=== PATIENT | female | born 1960 | race Caucasian/White ===

== ENCOUNTER → 2019-05-25 13:16 | Outpatient (CLI) | payer OTHER, SELFPAY ==
--- NOTE | 2019-05-25 13:23 | DIET.PN ---
Dietary Progress Note Assessment: Valorie is here to establish care with an RD s/p patricia-en-y gastric bypass from 2011. Pt initially lost 100# but has regained 70#. Attributes this to moving, family stress, and not having a support system. Pts daughter had gastric sleeve done 1y ago, pt's has DM and leukemia. Pt feels having the accountability of regular RD check ins will help her stay accountable. HT: 5'6 04/29 WT:290# UBW: 354 down to 220 gained back 70# BMI: 46.8 9 (morbid obesity) Pt is taking bariatric supps as directed (MVI, calcium, biotin, B12, Iron) and has few side effects from procedure except: if eats too much will spit up some volume about every couple weeks, no specific foods Usual Intake: B: 1 packet flavor oatmeal-c nuts sometimes or bulgarian muffin/toast c butter/bagel c cream cheese or scrambled eggs c toast 9am: cottage cheese c fruit (peaches/cantaloupe) Lunch(noon): popcorn, granola bar D530: chicken thigh, a couple little red potatoes, veggie or steak ([place] strip) c rice or mac n cheese or pasta c onion and mushroom Bedtime snack: packet of fruit gummies Pt's self-proclaimed food downfalls include sweets: ice cream- but no sugar added as has DM- and sometime just eats skinnypop popcorn for lunch. Physical Activity: Currently no intentional PA, before moved (5y ago) was doing 3x/w at [facility] 2hrs each occasion, 30 min twice per week on treadmill Nutrition Diagnosis: 1. Impaired nutrient utilization and altered GI function r/t hx of patricia-en-y gastric bypass aeb pt s/p procedure 8y ago, is reliant on daily nutrition supplements, has a limited stomach pouch which needs optimized nutrient intake to avoid severe malnutrition. 2. Undesirable food choices r/t lifestyle pattern which promotes weight maintenance post-bariatric aeb pt has regained 70% of weight, pt diet recall high in carbohydrates and inadequate in protein, pt reports no regular physical activity. Interventions: 1. Discussed physical activity as an important target to address several barriers to self care: socialization, weight maintenance, improved mood, self-care. Pt has scholarship application for the [employer] needing to be filled out. Pt had success with PA when a [facility] of [facility] [employer] [facility] [place]. 2. Reiterated post-bariatric diet reccs of 1. Protein 2. Vegetable 3. Starch/Fruit. Because the pouch is small, foods should be consumed in this order of importance to ensure adequate nutrition. 3. Introduced concept of Mindful Eating. Educated on the hunger scale, to eat at a 3 and stop at a 7. If eating when a 5, what are you asking food to do for you? Try to identify situations or emotions when you turn to food to ground yourself or as a friend. Be gentle and notice these occasions, inviting self to either participate in them or find a suitable alternative. Start to understand the difference between stomach hunger vs eye, ear, nose, heart hungers. Goals: 1. Pt will sign up for [employer] scholarship and sample a variety of classes to see which she enjoys and report back to this RD during f/u. 2. Pt will increase protein during breakfast or lunch by adding in Fage Trublend anguillan yogurt, which has no added sugars or artificial sweeteners. 3. Pt will start practicing Mindful Eating by getting familiar with her own Hunger Scale and gently identify emotions/situations when she eats as a coping mechanism. Monitoring/Evaluations: f/u in 1 mo
== END ==
PROVIDERS: PCP Internal Medicine; Visit Provider Psychiatry & Neurology Psychiatry
DX: E66.01 Morbid (severe) obesity due to excess calories (principal); Z68.42 Body mass index [BMI] 45.0-49.9, adult; Z09 Encounter for follow-up examination after completed treatment for conditions other than malignant neoplasm; Z98.84 Bariatric surgery status
CPT/HCPCS: 97802

== ENCOUNTER → 2019-06-22 13:29 | Outpatient (CLI) | payer OTHER, SELFPAY ==
--- NOTE | 2019-06-22 13:33 | DIET.PN ---
Dietary Progress Note Assessment: Valorie is here for f/u appointment for weight loss. Setback in [place] at [facility] with who is starting new medication for leukemia. Pt expresses difficulty caring for self when has so much going on. She has cancelled several appointments for herself and did not get a chance to go sign up for the [facility] per our goals last visit. Pt having difficulty meal planning, tends towards protein bars, easy carbs, or frozen dishes, though is retired and is able to prep meals. HT: 66 WT: 287# (-3#) Nutrition Diagnosis: 1. Impaired nutrient utilization and altered GI function r/t hx of patricia-en-y gastric bypass aeb pt s/p procedure 8y ago, is reliant on daily nutrition supplements, has a limited stomach pouch which needs optimized nutrient intake to avoid severe malnutrition. 2. Undesirable food choices r/t lifestyle pattern which promotes weight maintenance post-bariatric aeb pt has regained 70% of weight, pt diet recall high in carbohydrates and inadequate in protein, pt reports no regular physical activity. Interventions: Pt will continue goal of signing up for [facility] before our next visit. Discussed meal prepping, pt will try planning 3 dinners per week, one new recipe and two familiar healthy recipes, even if she is the only one who eats it. Pt will start diet diary to watch her PRO, CHO, and kcals and will share at f/u Monitoring/Evaluations: f/u 4w
== END ==
PROVIDERS: PCP Internal Medicine; Referring Provider Psychiatry & Neurology Psychiatry; Visit Provider Psychiatry & Neurology Psychiatry
DX: E66.9 Obesity, unspecified (principal); Z68.42 Body mass index [BMI] 45.0-49.9, adult; Z71.3 Dietary counseling and surveillance
CPT/HCPCS: 97802

== ENCOUNTER → 2019-10-15 10:55 | Outpatient (CLI) | payer OTHER, SELFPAY ==
--- NOTE | 2019-10-15 15:25 | DIET.PN ---
Dietary Progress Note Assessment: Valorie is here for f/u appointment for weight loss. Pt feeling emotional about isolation during pandemic. Has been snacking and not doing physical activity. Pt originally was excited to start a bariatric support group but feels she needs to get back on track before this can occur. Pt brought in several food containers to show she has been more discerning on food ingredients, choosing less processed options and those with monkfruit or stevia. HT: 66 WT: 287# (-3#) Nutrition Diagnosis: 1. Impaired nutrient utilization and altered GI function r/t hx of patricia-en-y gastric bypass aeb pt s/p procedure 8y ago, is reliant on daily nutrition supplements, has a limited stomach pouch which needs optimized nutrient intake to avoid severe malnutrition. 2. Undesirable food choices r/t lifestyle pattern which promotes weight maintenance post-bariatric aeb pt has regained 70% of weight, pt diet recall high in carbohydrates and inadequate in protein, pt reports no regular physical activity. Interventions: 1. Pt will discard all artificial sweeteners in home replacing with either monkfruit, stevia, and/or sugar alcohols. 2. Pt will start walking around the park near her home to increase physical activity. 3. Pt will prioritize self-care including good food choices, attending care appointments, and moving her body. 4. Pt will research if her bariatric center has an online support group during the pandemic. Monitoring/Evaluations: f/u 2w
== END ==
PROVIDERS: PCP Internal Medicine; Referring Provider Psychiatry & Neurology Psychiatry; Visit Provider Psychiatry & Neurology Psychiatry
DX: Z98.84 Bariatric surgery status (principal); Z71.3 Dietary counseling and surveillance; E66.9 Obesity, unspecified; Z68.42 Body mass index [BMI] 45.0-49.9, adult
CPT/HCPCS: 97802

== ENCOUNTER → 2019-10-29 11:21 | Outpatient (CLI) | payer OTHER, SELFPAY ==
--- NOTE | 2019-10-29 12:22 | DIET.PN ---
Dietary Progress Note RD f/u c Valorie for obesity s/p gastric bypass surgery Pt in better spirits this visit than last. Pt has been working on removing excessive food additives and artificial sweeteners from diet. Pt is bringing in food labels from items she has found containing stevia and monkfruit. 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 Pt has difficulty focusing on healthy eating and physical activity when in pain and focused on caretaking others. Pt working c counselor to address these things and it is apparent to me that her efforts at self care have increased over past two weeks. Pt is up 3#, however just starting to get back on track after the initiation of the pandemic. Pt takes 40mg lasix daily and is experiencing LLE, she shows me the creases in her ankles from socks. Recc pt check in c PCP for assessment of diuretic adjustment. We discussed dietary strategies to manage LLE including reducing sodium in diet and ensuring adequate protein may as she is s/p RYGB. Pt admits to not always getting her protein in. Gave pt sample of ONS Ensure Max. Pt brought in diet diary. Lunches, dinners, and snacks are all acceptable but noticed breakfast meals are excessive in carbohydrates (~80g). Discussed strategies to keep breakfast at 45g CHO by substituting some high carb items for high protein items. Usual Breakfast: 1 hb egg, south african muffin c butter, 2 sl deli turkey, 1 packet oatmeal c apples and almonds, 1/2 grapefruit Pt having difficulty finding provider who does lymphatic drainage and myofacial release work, recc PT Jena Schulz who is certified in these modalities. Px and sx reduction is crucial to this pt being able to meal prep healthy options and do physical activity to manage obesity. f/u in 2 w to assess barriers and continue weight loss.
== END ==
PROVIDERS: PCP Internal Medicine; Referring Provider Psychiatry & Neurology Psychiatry; Visit Provider Psychiatry & Neurology Psychiatry
DX: E66.9 Obesity, unspecified (principal); Z98.84 Bariatric surgery status; Z71.3 Dietary counseling and surveillance
CPT/HCPCS: 97802

== ENCOUNTER → 2019-11-12 10:52 | Outpatient (CLI) | payer OTHER, SELFPAY ==
--- NOTE | 2019-11-12 12:25 | DIET.PN ---
Dietary Progress Note 2w RD f/u for post RYGB weight gain. Pt was 355# before surgery, dropped to 220# 1y later but is again 300#. Pt is making great improvements in food choices and portion sizes but still facing considerable barriers for physical activity so while she has not gained any more weight with our visits, she also has not significantly lost, either. Pt is keeping food record and has modified her breakfasts to be fewer carbs, sticking to a high protein, 30g CHO breakfast since last visit. Pt continues to bring in food labels of new products she finds and enjoys. Pt has been packing car with snacks (protein bars, apples, carrots, celery, water) so she does not get tempted to do drive through when attending appointments or out shopping. Pt continuing to experience LLE despite 40mg Lasix daily. Discussed her having telehealth appt c PCP for assessment. In meantime, recommended pt start to log her daily sodium intake to stick to 2-3g max per day but not dropping below 1500mg. This will be good information for me to know as well as her PCP when she has the appt. Discussed barriers to physical activity: depression, LLE, caretaking , not in the habit. Used wagon wheel in dirt path analogy that it is difficult when you are on a well worn track to cut a new path, but once you get the template started, it becomes easier. Discussed benefits of physical activity including: continued weight loss, mood lifting, self-care, venous return for LLE, better energy. Would be beneficial for pt to continue processing barriers to physical activity c her therapist as well for added support. f/u in 2w to assess progress and barriers.
== END ==
PROVIDERS: PCP Internal Medicine; Referring Provider Psychiatry & Neurology Psychiatry; Visit Provider Psychiatry & Neurology Psychiatry
DX: Z98.84 Bariatric surgery status (principal); Z71.3 Dietary counseling and surveillance
CPT/HCPCS: 97802

== ENCOUNTER → 2019-11-26 12:01 | Outpatient (CLI) | payer OTHER, SELFPAY ==
--- NOTE | 2019-11-26 12:17 | DIET.PN ---
Dietary Progress Note Assessment: pt has lost weight this week (-3#), edema has resolved though pt does not understand why. Pt did not log sodium intake since last visit, will try again this week. Pt continues to consume ultraprocessed foods, we discussed label reading of these foods to distinguish between kitchen ingredients and laboratory ingredients, to choose items with kitchen ingredients. Pt has been mixing riced cauliflower in with rice at dinner and adds beets, sweet potatoes, to roasted potatoes and is amazed her does not notice or complain. Pt continues to have multiple barriers for physical activity: migraines, tight muscles, depression. Discussed c pt role of physical activity in improving these sx once a regular practice. Pt mentioned having hot tub and wanting to do water exercises in there. Pt decided to turn the heat down so she can 1. have jetted massage 2. do exercises 3. stress relief 4. have nearby. Pt continues to express isolation r/t global pandemic.
== END ==
PROVIDERS: PCP Internal Medicine; Referring Provider Psychiatry & Neurology Psychiatry; Visit Provider Psychiatry & Neurology Psychiatry
DX: Z71.3 Dietary counseling and surveillance (principal); Z98.84 Bariatric surgery status; F33.2 Major depressive disorder, recurrent severe without psychotic features; F41.9 Anxiety disorder, unspecified; Z68.42 Body mass index [BMI] 45.0-49.9, adult
CPT/HCPCS: 97802; 99214

== ENCOUNTER → 2020-02-10 12:04 | Outpatient (CLI) | payer OTHER, SELFPAY ==
--- NOTE | 2020-02-10 12:08 | DIET.PN ---
Dietary Progress Note 50y F f/u for weight gain and morbid obesity s/p gastric bypass. Pt is in a state of depression with little motivation to do exercise and finds herself emotional eating. Pt recently started physical therapy here at and is actively working with her care team. Pt feel isolation and is dreading the holidays as she will not be with her children due to Covid pandemic as her has leukemia so they are worried about transmission risk. Pt saw her clothes from after the bypass surgery, size 14, but is back up to size 24. Pt is making mostly healthy food choices but is overeating and grazing throughout the day. Discussed motivation and ways to get the motivation ball rolling for increased physical activity. Pt tries to involve her in physical activity attempts, but she reports he is depressed too, declines her offer, then she does not work out. Suggested pt find new movie or tv show which she only gets to watch when she is walking on the treadmill or pair with another motivating factor. Discussed physical activity's role in mood, weight, motivation. Discussed pts previous luck working with bariatric support group. There isn't anything in the area but there are some good Facebook groups. Pt will look for a good fit. F/U in 2w to assess barriers and progress.
== END ==
PROVIDERS: Family Provider Internal Medicine; PCP Internal Medicine; Referring Provider Psychiatry & Neurology Psychiatry; Visit Provider Psychiatry & Neurology Psychiatry
DX: E66.01 Morbid (severe) obesity due to excess calories (principal); Z98.84 Bariatric surgery status; Z71.3 Dietary counseling and surveillance
CPT/HCPCS: 97803

== ENCOUNTER → 2020-02-24 13:18 | Outpatient (CLI) | payer OTHER, SELFPAY ==
--- NOTE | 2020-02-24 13:19 | DIET.PN ---
Dietary Progress Note Assessment: Pt was weezing last friday night and coughing until vomited, missed PT appts now can't get back in until March. Has been snacking at night for a couple years, goes in room, puts in dvd and lays in bed snacking Pt noticed she has been eating dinner c later than normal, later than 7pm. WT: 306# (same as 2w ago) weighed in office today Interventions: 1. Discussed making hot tea in evening in leiu of snacks to assist c weight loss goals 2. Encouraged pt to start dinner earlier to try to eat by 6pm. Monitoring/Evaluations: f/u in 2w to assess progress and problem solve barriers
== END ==
PROVIDERS: Family Provider Internal Medicine; PCP Internal Medicine; Referring Provider Psychiatry & Neurology Psychiatry; Visit Provider Psychiatry & Neurology Psychiatry
DX: E66.9 Obesity, unspecified (principal); R06.2 Wheezing; R05 Cough; Z71.3 Dietary counseling and surveillance
CPT/HCPCS: 97803

== ENCOUNTER → 2020-03-02 13:28 | Outpatient (CLI) | payer OTHER, SELFPAY ==
--- NOTE | 2020-03-02 13:33 | DIET.PN ---
Dietary Progress Note Assessment: 60y F here to f/u for nutrition visit. Pt in much higher spirits than previous few visits. Per pt her psychiatrist has increased Prozac dose. Previous visits pt has been talking about having no energy to do anything and has a freezer full of fruit she needs to process. Pt has been processing her fruit, is finished c blackberries, and now working on apples and pears. She has been outside and climbing ladders to harvest. Pt lost 1# this week. pt tried to stop snacking and drink tea in the evening, she is still drinking the tea but is also snacking WT: 305# (-1#) Monitoring/Evaluations: f/u in 2w via telehealth to assess progress
== END ==
PROVIDERS: Family Provider Internal Medicine; PCP Internal Medicine; Referring Provider Psychiatry & Neurology Psychiatry; Visit Provider Psychiatry & Neurology Psychiatry
DX: Z98.84 Bariatric surgery status (principal); Z71.3 Dietary counseling and surveillance
CPT/HCPCS: 97803

== ENCOUNTER → 2020-03-16 13:55 | Outpatient (CLI) | payer OTHER, SELFPAY | PROVIDERS: Family Provider Internal Medicine; PCP Internal Medicine; Referring Provider Psychiatry & Neurology Psychiatry; Visit Provider Psychiatry & Neurology Psychiatry | DX: E66.01 Morbid (severe) obesity due to excess calories (principal); Z71.3 Dietary counseling and surveillance | CPT/HCPCS: 97803 ==

== ENCOUNTER → 2020-03-30 13:00 | Outpatient (CLI) | payer OTHER, SELFPAY ==
--- NOTE | 2020-03-30 13:00 | DIET.PN ---
Dietary Progress Note Assessment: 60y F attending telehealth f/u c RD for weight gain after gastric bypass surgery. Pt is holding steady on her weight but having continuing issues with physical activity. Pt is afraid to go outside to workout as her is immune compromised and she doesn't want to give him coronavirus. Pt continues to deal with depression and regularly sees her therapist via telehealth. Pt having days of feeling hungry all day several times per week, is trying to eat fruit or popcorn. Discussed other foods to eat to try to satisfy hunger which are more nutrient rich. Interventions: 1. Collaborated c pt on idea to make batch of cabbage and veggie soup with some beans to promote satisfaction. Pt will do this prior to our next visit to see if it works. 2. Pt purchased a dancing exercise video and will try it out as a way to get 150 minutes of physical activity per week. Monitoring/Evaluations: in person f/u in 2w
== END ==
PROVIDERS: Family Provider Internal Medicine; PCP Internal Medicine; Referring Provider Psychiatry & Neurology Psychiatry; Visit Provider Psychiatry & Neurology Psychiatry
DX: Z98.84 Bariatric surgery status (principal); Z71.3 Dietary counseling and surveillance
CPT/HCPCS: 97803

== ENCOUNTER → 2020-05-18 16:50 | Outpatient (CLI) | payer OTHER, SELFPAY | PROVIDERS: Family Provider Internal Medicine; PCP Internal Medicine; Referring Provider Psychiatry & Neurology Psychiatry; Visit Provider Psychiatry & Neurology Psychiatry | DX: E66.9 Obesity, unspecified (principal); Z98.84 Bariatric surgery status; Z71.3 Dietary counseling and surveillance | CPT/HCPCS: 97803 ==

== ENCOUNTER → 2020-06-08 11:04 | Outpatient (CLI) | payer OTHER, SELFPAY ==
--- NOTE | 2020-06-08 11:07 | DIET.PN ---
Dietary Progress Note pt is having headaches occipital and frontal to temporal, light sensitivity, finds relief by putting heating pad around head c cold compress, not finding relief c Red Dragon THC/CBD rub, using inhaler a lot more, not making her vomit, headaches make it more difficult to prepare meals and move around. Pt interested in visiting headache clinic for further management. Pt is experimenting with sweetening with beets and squash instead of regular or artificial sweeteners. Pt is eating kale and taiwanese chard as she [place] [employer] [place]. [place] pt willing to try wild sockeye salmon to support her inflammation. f/u in 1mo
== END ==
PROVIDERS: Family Provider Internal Medicine; PCP Internal Medicine; Referring Provider Psychiatry & Neurology Psychiatry; Visit Provider Psychiatry & Neurology Psychiatry
DX: R51.9 Headache, unspecified (principal); Z71.3 Dietary counseling and surveillance
CPT/HCPCS: 97803

== ENCOUNTER 2020-06-13 14:30 | Outpatient (RCR) | payer OTHER, SELFPAY ==
--- NOTE | 2020-02-07 16:10 | PT.OTN ---
Current Diagnoses Complex regional pain syndrome I of upper limb, bilateral (02/07/20) Myalgia, unspecified site (02/07/20) Physical Therapy Treatment Note PT-OP-A Visit Information Start: 01/31/20 10:46 Freq: Status: Active Protocol: Document 02/07/20 14:31 [facility] (Rec: 02/07/20 14:41 [facility]AK [id number]) Out-Patient Physical Therapy Visit Information Visit Information Visit Type Treatment Note Visit Start Time 14:30 Visit Stop Time 15:45 Total Visit Minutes 75 Visit Number 2 Evaluation Information Evaluation Date 02/03/20 Precautions Precautions CRPS right UE PT-OP-B Current Condition Start: 01/31/20 10:46 Freq: Status: Active Protocol: Document 02/03/20 10:26 [facility] (Rec: 02/03/20 10:53 SAK [id number]) Current Condition History of Current Condition Onset Date 2007 Current Complaints bilateral UE pain History of Current Condition 2007 fractured both elbows after a fall at work landed in pushup position. Surgical intervention right radial head replacement. Has had PT multiple times since 2007. 2009 removal of radial head with use of muscle flap per patient. Reports persistent pain, development of CRPS, and gradual onset of swelling in right chest, right UE. Has had 4 nerve blocks with no pain-relieving benefit. 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 Most recently after moving went to [place] [facility]. Some benefit from trial spinal cord stimulator initially, second time stimulator inserted 2013 had bad reaction with some weakness. Now has moved to [place], now goes to [facility] pain [facility], sent to Dr. Berger in [place] who told patient the stimulator may have migrated and wasn't doing her any good. Most recently referred to [facility], physician stated stimulator put in wrong. Has more scar tissue and has refused another stimulator due to that experience. C/o hedaches, severe pain right UE . Has been put on Flexeril due to muscle spasms. Patient reports depression due to her disability, moving from [place], has leukemia, unable to see grandchildren or daughter in [place]. Other daughter across country in [place]. Caregiver for her . Also c/o lymphedema right subaxillary region, possibly related to RSD s/p elbow injury. Went to [facility], therapist told her she couldn' t do anything for her, then sent to DO, didn't have good experience. Prior Treatments and Tests PT, neuromuscular stimulator, medication. Prior Functional Status Baseline Function- ADL's Independent Baseline Function- Mobility Independent Baseline Function- Recreation/Hobbies no limitations Current Functional Impairments (Reported) Functional Limitations- ADL's painful Functional Limitations- Recreation/ painful Hobbies PT-OP-C Subjective Start: 01/31/20 10:46 Freq: Status: Active Protocol: Document 02/07/20 14:31 [facility] (Rec: 02/07/20 14:41 [facility] [id number]) OP-PT Subjective Patient Comments Patient Comments More soreness over the weekend . Forgot to do the UE exercises laying down not sitting up. Also more active due to her injuring his hip. Reports headaches have been worse, has been given a different medication. PT-OP-F Manual Assessment Start: 01/31/20 10:46 Freq: Status: Active Protocol: Document 02/03/20 10:27 [facility] (Rec: 02/03/20 17:25 [facility] [id number]) Manual Assessments Soft Tissue Assessment Soft Tissue Mobility Assessment no fibrosis right UE or chest Other Manual Assessments Other Manual Assessments palpable tightness bilateral upper traps right greater than left PT-OP-J Posture/Palpation/Skin Start: 01/31/20 10:46 Freq: Status: Active Protocol: Document 02/03/20 10:27 [facility] (Rec: 02/03/20 17:25 [facility] [id number]) Posture Evaluation Position Sitting Head/C-Spine Posture Forward Head T-Spine Posture Increased Kyphosis Shoulder Posture (L) Rounded,(R) Rounded Scapula Posture (L) Protracted,(R) Protracted PT-OP-K Range of Motion Start: 01/31/20 10:46 Freq: Status: Active Protocol: Document 02/03/20 10:27 [facility] (Rec: 02/03/20 17:25 [facility] [id number]) Cervical Spine Range of Motion Cervical Spine Active Testing Position Sitting Comments WNL Shoulder Goniometric Range of Motion Shoulder Right Active Shoulder ROM WFL No Testing Position Sitting Flexion 152 Extension 18 Abduction 112 External Rotation at 45 degrees 50 Abduction Internal Rotation Behind Back (text) L5 Left Shoulder ROM WFL Yes Shoulder ROM Limitations Shoulder ROM Limitations Soft Tissue Tightness,Pain Elbow/Forearm Range of Motion Elbow/Forearm ROM Limitations Elbow/Forearm ROM Limitations Bony Restriction,Pain PT-OP-N Lymphedema Start: 01/31/20 10:46 Freq: Status: Active Protocol: Document 02/03/20 10:27 [facility] (Rec: 02/03/20 17:25 [facility] [id number]) Lymphedema Measurements Upper Extremity Circumference Measurements Right Affected MCP 21.1 cm Wrist 18 cm 5 cm From Distal Crease 21.5 cm 10 cm From Distal Crease 26.2 cm 15 cm From Distal Crease 31.1 cm 20 cm From Distal Crease 33 cm 25 cm From Distal Crease 33.4 cm 30 cm From Distal Crease 42.1 cm 35 cm From Distal Crease 47.7 cm 40 cm From Distal Crease 52.8 cm 45 cm From Distal Crease 55 cm Axilla 62.3 cm Left Unaffected MCP 20.4 cm Wrist 18.2 cm 5 cm From Distal Crease 20.9 cm 10 cm From Distal Crease 24.1 cm 15 cm From Distal Crease 28.3 cm 20 cm From Distal Crease 32.4 cm 25 cm From Distal Crease 33.4 cm 30 cm From Distal Crease 38.9 cm 35 cm From Distal Crease 45.9 cm 40 cm From Distal Crease 49.4 cm 45 cm From Distal Crease 53.5 cm Axilla 61.9 cm Comments Lymphedema Comments no fibrosis or axillary cording palpable. trunk measurements: subaxillary: 131.3 nipple line: 145.2 PT-OP-Q Treatments Start: 01/31/20 10:46 Freq: Status: Active Protocol: Document 02/07/20 14:31 [facility] (Rec: 02/07/20 16:10 [facility] [id number]) Manual Therapy Treatment Soft Tissue Mobilization UT, c/s, periscapular Mobilization Type Myofascial Release,Strumming, Sustained Pressure Body Position Hooklying Comments also sidelying Lymphedema Treatment Manual Lymphatic Drainage Location for right chest and right UE Duration 35 Lymphedema Wrapping Body Location right UE Materials kinesiotape Other 2 fan strips with bases at supraclavicular fossa, crossing elbow posterolateral right UE Sequential Lymphedema Exercises Comments instructed to do supine instead of sitting Patient Education Self Manual Lymphatic Drainage reviewed PT-OP-T Assessment and Plan Start: 01/31/20 10:46 Freq: Status: Active Protocol: Document 02/07/20 14:31 [facility] (Rec: 02/07/20 16:10 [facility] [id number]) Physical Therapy Assessment Other Concerns Barriers to Rehabilitation PMH: CRPS, depression, anxiety, back pain, dizziness, headaches, hernia, joint replacement, neck pain, SOB, bariatric surgery, sleep apnea . Goals Three Impairment decreased right UE ROM Short Term Goal (STG) Patient to be independent and compliant with HEP for purposes of ROM and edema reduction STG Duration 04/04/20 Optics Test Technician Goal (LTG) Patient to demonstrate right UE ROM WNL to allow her to perform all usual activities including reaching overhead and donning/doffing her bra without difficulty LTG Duration 05/03/19 Two Impairment pain right UE, neck, and chest Nursing Home Goal (LTG) Decrease pain by at least 50% to improve activity tolerance and quality of life. LTG Duration 05/03/19 One Impairment lymphedema right UE and chest wall Short Term Goal (STG) Decrease and stabilize lymphedema (no increase or decrease greater than 1 cm over the course of 1 week) STG Duration 04/04/20 Nursing Home Goal (LTG) Patient to be independent with all aspects of self management for lymphedema to include self-MLD, sequential lymphedema exercises, be fit with appropriate compression garment(s) and demonstrate correct use LTG Duration 05/03/20 Assessment Summary Assessment palpable decrease in muscle tension espescially upper trap region right after treatment; patient reported decrease in pain. Decrease in edema right forearm but no change in upper arm and chest today. Physical Therapy Plan Frequency and Duration Frequency of Treatment 20 visits Duration of Treatment 12 weeks Plan of Care Start Date 02/03/20 Plan of Care End Date 05/03/20 Therapeutic Interventions Therapeutic Interventions Home Exercise Program, Lymphedema Management,Manual Therapy,Patient/Caregiver Education,Self-Care/Home Management,Soft Tissue Mobilization,Taping, Therapeutic Activities, Therapeutic Exercises Next Visit Focus/Plan Next Note Type Treatment Note Next Visit Plan Assess response to last PT session, continue per POC
--- NOTE | 2020-02-08 15:59 | PT.OTN ---
Current Diagnoses Complex regional pain syndrome I of upper limb, bilateral (02/08/20) Myalgia, unspecified site (02/08/20) Physical Therapy Treatment Note PT-OP-A Visit Information Start: 01/31/20 10:46 Freq: Status: Active Protocol: Document 02/08/20 14:28 [facility] (Rec: 02/08/20 14:49 [facility] [id number]) Out-Patient Physical Therapy Visit Information Visit Information Visit Type Treatment Note Visit Start Time 14:30 Visit Stop Time 15:45 Total Visit Minutes 75 Visit Number 2 Evaluation Information Evaluation Date 02/03/20 PT-OP-B Current Condition Start: 01/31/20 10:46 Freq: Status: Active Protocol: Document 02/03/20 10:26 SAK (Rec: 02/03/20 10:53 SAK [id number]) Current Condition History of Current Condition Onset Date 2007 Current Complaints bilateral UE pain History of Current Condition 2007 fractured both elbows after a fall at work landed in pushup position. Surgical intervention right radial head replacement. Has had PT multiple times since 2007. 2009 removal of radial head with use of muscle flap per patient. Reports persistent pain, development of CRPS, and gradual onset of swelling in right chest, right UE. Has had 4 nerve blocks with no pain-relieving benefit. Has seen design painter; was sent to PT for lymphatic massage, MFR and aquatic therapy; states she benefited from all. Most recently after moving went to [place] [facility]. Some benefit from trial spinal cord stimulator initially, second time stimulator inserted 2014 had bad reaction with some weakness. Now has moved to [place], now goes to [facility], sent to Dr. Berger in [place] who told patient the stimulator may have migrated and wasn't doing her any good. Most recently referred to [facility], physician stated stimulator put in wrong. Has more scar tissue and has refused another stimulator due to that experience. C/o hedaches, severe pain right UE . Has been put on Flexeril due to muscle spasms. Patient reports depression due to her disability, moving from [place], has leukemia, unable to see grandchildren or daughter in [place]. Other daughter across country in [place]. Caregiver for her . Also c/o lymphedema right subaxillary region, possibly related to RSD s/p elbow injury. Went to [facility], therapist told her she couldn' t do anything for her, then sent to DO, didn't have good experience. Prior Treatments and Tests PT, neuromuscular stimulator, medication. Prior Functional Status Baseline Function- ADL's Independent Baseline Function- Mobility Independent Baseline Function- Recreation/Hobbies no limitations Current Functional Impairments (Reported) Functional Limitations- ADL's painful Functional Limitations- Recreation/ painful Hobbies PT-OP-C Subjective Start: 01/31/20 10:46 Freq: Status: Active Protocol: Document 02/08/20 14:28 [facility] (Rec: 02/08/20 15:59 [facility] [id number]) OP-PT Subjective Patient Comments Patient Comments Patient reports her headache was gone after last session, relief lasted until she went to [employer] store to shop, states it gradually came back as she was walking around. Tolerated kinesiotape well. PT-OP-F Manual Assessment Start: 01/31/20 10:46 Freq: Status: Active Protocol: Document 02/03/20 10:27 [facility] (Rec: 02/03/20 17:25 [facility] [id number]) Manual Assessments Soft Tissue Assessment Soft Tissue Mobility Assessment no fibrosis right UE or chest Other Manual Assessments Other Manual Assessments palpable tightness bilateral upper traps right greater than left PT-OP-J Posture/Palpation/Skin Start: 01/31/20 10:46 Freq: Status: Active Protocol: Document 02/03/20 10:27 [facility] (Rec: 02/03/20 17:25 [facility] [id number]) Posture Evaluation Position Sitting Head/C-Spine Posture Forward Head T-Spine Posture Increased Kyphosis Shoulder Posture (L) Rounded,(R) Rounded Scapula Posture (L) Protracted,(R) Protracted PT-OP-K Range of Motion Start: 01/31/20 10:46 Freq: Status: Active Protocol: Document 02/03/20 10:27 [facility] (Rec: 02/03/20 17:25 [facility] [id number]) Cervical Spine Range of Motion Cervical Spine Active Testing Position Sitting Comments WNL Shoulder Goniometric Range of Motion Shoulder Right Active Shoulder ROM WFL No Testing Position Sitting Flexion 152 Extension 18 Abduction 112 External Rotation at 45 degrees 50 Abduction Internal Rotation Behind Back (text) L5 Left Shoulder ROM WFL Yes Shoulder ROM Limitations Shoulder ROM Limitations Soft Tissue Tightness,Pain Elbow/Forearm Range of Motion Elbow/Forearm ROM Limitations Elbow/Forearm ROM Limitations Bony Restriction,Pain PT-OP-N Lymphedema Start: 01/31/20 10:46 Freq: Status: Active Protocol: Document 02/03/20 10:27 [facility] (Rec: 02/03/20 17:25 [facility] [id number]) Lymphedema Measurements Upper Extremity Circumference Measurements Right Affected MCP 21.1 cm Wrist 18 cm 5 cm From Distal Crease 21.5 cm 10 cm From Distal Crease 26.2 cm 15 cm From Distal Crease 31.1 cm 20 cm From Distal Crease 33 cm 25 cm From Distal Crease 33.4 cm 30 cm From Distal Crease 42.1 cm 35 cm From Distal Crease 47.7 cm 40 cm From Distal Crease 52.8 cm 45 cm From Distal Crease 55 cm Axilla 62.3 cm Left Unaffected MCP 20.4 cm Wrist 18.2 cm 5 cm From Distal Crease 20.9 cm 10 cm From Distal Crease 24.1 cm 15 cm From Distal Crease 28.3 cm 20 cm From Distal Crease 32.4 cm 25 cm From Distal Crease 33.4 cm 30 cm From Distal Crease 38.9 cm 35 cm From Distal Crease 45.9 cm 40 cm From Distal Crease 49.4 cm 45 cm From Distal Crease 53.5 cm Axilla 61.9 cm Comments Lymphedema Comments no fibrosis or axillary cording palpable. trunk measurements: subaxillary: 131.3 nipple line: 145.2 PT-OP-Q Treatments Start: 01/31/20 10:46 Freq: Status: Active Protocol: Document 02/08/20 14:28 [facility] (Rec: 02/08/20 14:49 [facility] [id number]) Therapeutic Exercises Supine Exercises postural isometric Reps/Minutes 5x Sitting Exercises Pulleys Sitting Exercise Name shoulder flex Reps/Minutes 10x Standing Exercises row Equipment Used L1 TB Reps/Minutes 10x wall posture Reps/Minutes 5x Manual Therapy Treatment Soft Tissue Mobilization UT, c/s, periscapular Mobilization Type Myofascial Release,Strumming, Sustained Pressure Body Position Hooklying Comments also sidelying Self-Care/Home Management Treatment Education Patient Education Home Exercise Program,Posture Lymphedema Treatment Manual Lymphatic Drainage Location for right chest and right UE Duration 35 Lymphedema Wrapping Body Location right UE Materials kinesiotape Other added 1 fan strip posterior upper arm with base toward thoracic spine PT-OP-T Assessment and Plan Start: 01/31/20 10:46 Freq: Status: Active Protocol: Document 02/08/20 14:28 [facility] (Rec: 02/08/20 14:49 [facility] [id number]) Physical Therapy Assessment Other Concerns Barriers to Rehabilitation PMH: CRPS, depression, anxiety, back pain, dizziness, headaches, hernia, joint replacement, neck pain, SOB, bariatric surgery, sleep apnea . Goals Three Impairment decreased right UE ROM Short Term Goal (STG) Patient to be independent and compliant with HEP for purposes of ROM and edema reduction STG Duration 04/04/20 [employer] Machine Operator Goal (LTG) Patient to demonstrate right UE ROM WNL to allow her to perform all usual activities including reaching overhead and donning/doffing her bra without difficulty LTG Duration 05/03/19 Two Impairment pain right UE, neck, and chest Mcc Goal (LTG) Decrease pain by at least 50% to improve activity tolerance and quality of life. LTG Duration 05/03/19 One Impairment lymphedema right UE and chest wall Short Term Goal (STG) Decrease and stabilize lymphedema (no increase or decrease greater than 1 cm over the course of 1 week) STG Duration 04/04/20 Mcc Goal (LTG) Patient to be independent with all aspects of self management for lymphedema to include self-MLD, sequential lymphedema exercises, be fit with appropriate compression garment(s) and demonstrate correct use LTG Duration 05/03/20 Assessment Summary Assessment short term pain relief after last session, discussed potential postural contribution to pain returning . Patient tolerated kinesiotape well, 3rd piece added today for further edema reduction posterior upper arm. Physical Therapy Plan Frequency and Duration Frequency of Treatment 20 visits Duration of Treatment 12 weeks Plan of Care Start Date 02/03/20 Plan of Care End Date 05/03/20 Therapeutic Interventions Therapeutic Interventions Home Exercise Program, Lymphedema Management,Manual Therapy,Patient/Caregiver Education,Self-Care/Home Management,Soft Tissue Mobilization,Taping, Therapeutic Activities, Therapeutic Exercises Next Visit Focus/Plan Next Note Type Treatment Note Next Visit Plan Add upper trunk rotation/open book exercise, continue postural correction and ROM ex . MLD and MFR.
--- NOTE | 2020-02-09 16:19 | PT.OTN ---
Current Diagnoses Complex regional pain syndrome I of upper limb, bilateral (02/09/20) Myalgia, unspecified site (02/09/20) Physical Therapy Treatment Note PT-OP-A Visit Information Start: 01/31/20 10:46 Freq: Status: Active Protocol: Document 02/09/20 14:32 [facility] (Rec: 02/09/20 14:51 [facility] [id number]) Out-Patient Physical Therapy Visit Information Visit Information Visit Type Treatment Note Visit Start Time 14:30 Visit Stop Time 15:45 Total Visit Minutes 75 Visit Number 4 Evaluation Information Evaluation Date 02/03/20 PT-OP-B Current Condition Start: 01/31/20 10:46 Freq: Status: Active Protocol: Document 02/03/20 10:26 [facility] (Rec: 02/03/20 10:53 [facility] [id number]) Current Condition History of Current Condition Onset Date 2007 Current Complaints bilateral UE pain History of Current Condition 2007 fractured both elbows after a fall at work landed in pushup position. Surgical intervention right radial head replacement. Has had PT multiple times since 2007. 2009 removal of radial head with use of muscle flap per patient. Reports persistent pain, development of CRPS, and gradual onset of swelling in right chest, right UE. Has had 4 nerve blocks with no pain-relieving benefit. Has seen painter plate; was sent to PT for lymphatic massage, MFR and aquatic therapy; states she benefited from all. Most recently after moving went to [place] [facility]. Some benefit from trial spinal cord stimulator initially, second time stimulator inserted 2014 had bad reaction with some weakness. Now has moved to [place], now goes to [facility], sent to Dr. Berger in [place] who told patient the stimulator may have migrated and wasn't doing her any good. Most recently referred to [facility], physician stated stimulator put in wrong. Has more scar tissue and has refused another stimulator due to that experience. C/o hedaches, severe pain right UE . Has been put on Flexeril due to muscle spasms. Patient reports depression due to her disability, moving from [place], has leukemia, unable to see grandchildren or daughter in [place]. Other daughter across country in [place]. Caregiver for her . Also c/o lymphedema right subaxillary region, possibly related to RSD s/p elbow injury. Went to [facility], therapist told her she couldn' t do anything for her, then sent to DO, didn't have good experience. Prior Treatments and Tests PT, neuromuscular stimulator, medication. Prior Functional Status Baseline Function- ADL's Independent Baseline Function- Mobility Independent Baseline Function- Recreation/Hobbies no limitations Current Functional Impairments (Reported) Functional Limitations- ADL's painful Functional Limitations- Recreation/ painful Hobbies PT-OP-C Subjective Start: 01/31/20 10:46 Freq: Status: Active Protocol: Document 02/09/20 14:32 [facility] (Rec: 02/09/20 14:51 [facility] [id number]) OP-PT Subjective Patient Comments Patient Comments soreness in right elbow today, not sure why, not unusual. States headach relief lasted until this am. Tolerating kinesiotape well, thinks some decrease in swelling. PT-OP-F Manual Assessment Start: 01/31/20 10:46 Freq: Status: Active Protocol: Document 02/03/20 10:27 [facility] (Rec: 02/03/20 17:25 [facility] [id number]) Manual Assessments Soft Tissue Assessment Soft Tissue Mobility Assessment no fibrosis right UE or chest Other Manual Assessments Other Manual Assessments palpable tightness bilateral upper traps right greater than left PT-OP-J Posture/Palpation/Skin Start: 01/31/20 10:46 Freq: Status: Active Protocol: Document 02/03/20 10:27 [facility] (Rec: 02/03/20 17:25 [facility] [id number]) Posture Evaluation Position Sitting Head/C-Spine Posture Forward Head T-Spine Posture Increased Kyphosis Shoulder Posture (L) Rounded,(R) Rounded Scapula Posture (L) Protracted,(R) Protracted PT-OP-K Range of Motion Start: 01/31/20 10:46 Freq: Status: Active Protocol: Document 02/03/20 10:27 [facility] (Rec: 02/03/20 17:25 [facility] [id number]) Cervical Spine Range of Motion Cervical Spine Active Testing Position Sitting Comments WNL Shoulder Goniometric Range of Motion Shoulder Right Active Shoulder ROM WFL No Testing Position Sitting Flexion 152 Extension 18 Abduction 112 External Rotation at 45 degrees 50 Abduction Internal Rotation Behind Back (text) L5 Left Shoulder ROM WFL Yes Shoulder ROM Limitations Shoulder ROM Limitations Soft Tissue Tightness,Pain Elbow/Forearm Range of Motion Elbow/Forearm ROM Limitations Elbow/Forearm ROM Limitations Bony Restriction,Pain PT-OP-N Lymphedema Start: 01/31/20 10:46 Freq: Status: Active Protocol: Document 02/03/20 10:27 [facility] (Rec: 02/03/20 17:25 [facility] [id number]) Lymphedema Measurements Upper Extremity Circumference Measurements Right Affected MCP 21.1 cm Wrist 18 cm 5 cm From Distal Crease 21.5 cm 10 cm From Distal Crease 26.2 cm 15 cm From Distal Crease 31.1 cm 20 cm From Distal Crease 33 cm 25 cm From Distal Crease 33.4 cm 30 cm From Distal Crease 42.1 cm 35 cm From Distal Crease 47.7 cm 40 cm From Distal Crease 52.8 cm 45 cm From Distal Crease 55 cm Axilla 62.3 cm Left Unaffected MCP 20.4 cm Wrist 18.2 cm 5 cm From Distal Crease 20.9 cm 10 cm From Distal Crease 24.1 cm 15 cm From Distal Crease 28.3 cm 20 cm From Distal Crease 32.4 cm 25 cm From Distal Crease 33.4 cm 30 cm From Distal Crease 38.9 cm 35 cm From Distal Crease 45.9 cm 40 cm From Distal Crease 49.4 cm 45 cm From Distal Crease 53.5 cm Axilla 61.9 cm Comments Lymphedema Comments no fibrosis or axillary cording palpable. trunk measurements: subaxillary: 131.3 nipple line: 145.2 PT-OP-Q Treatments Start: 01/31/20 10:46 Freq: Status: Active Protocol: Document 02/09/20 14:32 [facility] (Rec: 02/09/20 14:51 [facility] [id number]) Therapeutic Exercises Sidelying Exercises open book Reps/Minutes 5x Sitting Exercises shoulder blade squeeze Reps/Minutes 5x shoulder shrug Reps/Minutes 5x Pulleys Sitting Exercise Name shoulder flex Reps/Minutes 10x Standing Exercises row Comments verbal review wall posture Reps/Minutes 5x Lymphedema Treatment Manual Lymphatic Drainage Location for right chest and right UE Duration 35 Lymphedema Wrapping Body Location right UE Materials kinesiotape Other added 1 fan strip posterior upper arm with base toward thoracic spine Applied Tubigrip F wrist to elbow, G wrist to axilla with good tolerance; advised to remove before bed. PT-OP-T Assessment and Plan Start: 01/31/20 10:46 Freq: Status: Active Protocol: Document 02/09/20 14:32 [facility] (Rec: 02/09/20 14:51 [facility] [id number]) Physical Therapy Assessment Other Concerns Barriers to Rehabilitation PMH: CRPS, depression, anxiety, back pain, dizziness, headaches, hernia, joint replacement, neck pain, SOB, bariatric surgery, sleep apnea . Goals Three Impairment decreased right UE ROM Short Term Goal (STG) Patient to be independent and compliant with HEP for purposes of ROM and edema reduction STG Duration 04/04/20 Store Sales Consultant Goal (LTG) Patient to demonstrate right UE ROM WNL to allow her to perform all usual activities including reaching overhead and donning/doffing her bra without difficulty LTG Duration 05/03/19 Two Impairment pain right UE, neck, and chest Care Home Goal (LTG) Decrease pain by at least 50% to improve activity tolerance and quality of life. LTG Duration 05/03/19 One Impairment lymphedema right UE and chest wall Short Term Goal (STG) Decrease and stabilize lymphedema (no increase or decrease greater than 1 cm over the course of 1 week) STG Duration 04/04/20 Store Sales Consultant Goal (LTG) Patient to be independent with all aspects of self management for lymphedema to include self-MLD, sequential lymphedema exercises, be fit with appropriate compression garment(s) and demonstrate correct use LTG Duration 05/03/20 Assessment Summary Assessment Good pain relief after last session of increased duration. Tolerating kinesiotape well, and doing trial Tubigrip today. Shoulder ROM improving . Physical Therapy Plan Frequency and Duration Frequency of Treatment 20 visits Duration of Treatment 12 weeks Plan of Care Start Date 02/03/20 Plan of Care End Date 05/03/20 Therapeutic Interventions Therapeutic Interventions Home Exercise Program, Lymphedema Management,Manual Therapy,Patient/Caregiver Education,Self-Care/Home Management,Soft Tissue Mobilization,Taping, Therapeutic Activities, Therapeutic Exercises Next Visit Focus/Plan Next Note Type Treatment Note Next Visit Plan circumferential and ROM measurements. Assess response to Tubigrip to right UE. Continue PT per POC to decrease edema, improve ROM, decrease pain.
--- NOTE | 2020-02-10 16:57 | PT.OTN ---
Current Diagnoses Complex regional pain syndrome I of upper limb, bilateral (02/10/20) Myalgia, unspecified site (02/10/20) Physical Therapy Treatment Note PT-OP-A Visit Information Start: 01/31/20 10:46 Freq: Status: Active Protocol: Document 02/10/20 10:35 SAK (Rec: 02/10/20 10:46 SAK [id number]) Out-Patient Physical Therapy Visit Information Visit Information Visit Type Treatment Note Visit Start Time 10:35 Visit Stop Time 11:54 Total Visit Minutes 79 Visit Number 5 Evaluation Information Evaluation Date 02/03/20 PT-OP-B Current Condition Start: 01/31/20 10:46 Freq: Status: Active Protocol: Document 02/03/20 10:26 SAK (Rec: 02/03/20 10:53 SAK [id number]) Current Condition History of Current Condition Onset Date 2007 Current Complaints bilateral UE pain History of Current Condition 2007 fractured both elbows after a fall at work landed in pushup position. Surgical intervention right radial head replacement. Has had PT multiple times since 2007. 2009 removal of radial head with use of muscle flap per patient. Reports persistent pain, development of CRPS, and gradual onset of swelling in right chest, right UE. Has had 4 nerve blocks with no pain-relieving benefit. Has seen baker paint; was sent to PT for lymphatic massage, MFR and aquatic therapy; states she benefited from all. Most recently after moving went to [place] [facility]. Some benefit from trial spinal cord stimulator initially, second time stimulator inserted 2014 had bad reaction with some weakness. Now has moved to [place], now goes to [facility], sent to Dr. Berger in [place] who told patient the stimulator may have migrated and wasn't doing her any good. Most recently referred to [facility], physician stated stimulator put in wrong. Has more scar tissue and has refused another stimulator due to that experience. C/o hedaches, severe pain right UE . Has been put on Flexeril due to muscle spasms. Patient reports depression due to her disability, moving from [place], has leukemia, unable to see grandchildren or daughter in [place]. Other daughter across country in [place]. Caregiver for her . Also c/o lymphedema right subaxillary region, possibly related to RSD s/p elbow injury. Went to [facility], therapist told her she couldn' t do anything for her, then sent to DO, didn't have good experience. Prior Treatments and Tests PT, neuromuscular stimulator, medication. Prior Functional Status Baseline Function- ADL's Independent Baseline Function- Mobility Independent Baseline Function- Recreation/Hobbies no limitations Current Functional Impairments (Reported) Functional Limitations- ADL's painful Functional Limitations- Recreation/ painful Hobbies PT-OP-C Subjective Start: 01/31/20 10:46 Freq: Status: Active Protocol: Document 02/10/20 10:35 SAK (Rec: 02/10/20 10:46 SAK [id number]) OP-PT Subjective Patient Comments Patient Comments No new c/o except Tubigrip didn't stay up, tolerated compression ok. Reports the Tubigrip didn't stay up wall on her upper arm. PT-OP-F Manual Assessment Start: 01/31/20 10:46 Freq: Status: Active Protocol: Document 02/03/20 10:27 SAK (Rec: 02/03/20 17:25 SAK [id number]) Manual Assessments Soft Tissue Assessment Soft Tissue Mobility Assessment no fibrosis right UE or chest Other Manual Assessments Other Manual Assessments palpable tightness bilateral upper traps right greater than left PT-OP-J Posture/Palpation/Skin Start: 01/31/20 10:46 Freq: Status: Active Protocol: Document 02/03/20 10:27 SAK (Rec: 02/03/20 17:25 SAK [id number]) Posture Evaluation Position Sitting Head/C-Spine Posture Forward Head T-Spine Posture Increased Kyphosis Shoulder Posture (L) Rounded,(R) Rounded Scapula Posture (L) Protracted,(R) Protracted PT-OP-K Range of Motion Start: 01/31/20 10:46 Freq: Status: Active Protocol: Document 02/10/20 10:46 SAK (Rec: 02/10/20 10:48 SAK [id number]) Shoulder Goniometric Range of Motion Shoulder Right Active Flexion 155 Abduction 145 PT-OP-N Lymphedema Start: 01/31/20 10:46 Freq: Status: Active Protocol: Document 02/10/20 16:53 SAK (Rec: 02/10/20 16:57 SAK [id number]) Lymphedema Measurements Upper Extremity Circumference Measurements Right Affected MCP 20.6 cm Wrist 17.8 cm 5 cm From Wrist Crease 19.7 m 10 cm From Wrist Crease 24.7 cm 15 cm From Wrist Crease 29.8 cm 20 cm From Wrist Crease 32.2 cm 25 cm From Wrist Crease 32.6 cm 30 cm From Wrist Crease 41.6 cm 35 cm From Wrist Crease 48.6 cm 40 cm From Wrist Crease 51.3 cm 45 cm From Wrist Crease 52.9 cm Elbow Joint 61 cm PT-OP-Q Treatments Start: 01/31/20 10:46 Freq: Status: Active Protocol: Document 02/10/20 10:35 SAK (Rec: 02/10/20 10:46 SAK [id number]) Therapeutic Exercises Sidelying Exercises open book Reps/Minutes 5x Sitting Exercises Pulleys Sitting Exercise Name shoulder flex Reps/Minutes 10x Standing Exercises shoulder ER Equipment Used L1 TB Reps/Minutes 10x shoulder extension Equipment Used L1 TB Reps/Minutes 10x row Equipment Used L1 TB Reps/Minutes 10x wall posture Reps/Minutes 5x Lymphedema Treatment Manual Lymphatic Drainage Location for right chest and right UE Duration 35 Lymphedema Wrapping Body Location right UE Materials kinesiotape Tubigrip H Other 3 fan strips: chest and UE toward supraclavicular antwan for edema reduction Tubigrip size H issued to patient for application from upper forearm to axilla; to be applied at home after adhesive of kinesiotape fully activated PT-OP-T Assessment and Plan Start: 01/31/20 10:46 Freq: Status: Active Protocol: Document 02/10/20 10:35 SAK (Rec: 02/10/20 10:46 [facility] [id number]) Physical Therapy Assessment Other Concerns Barriers to Rehabilitation PMH: CRPS, depression, anxiety, back pain, dizziness, headaches, hernia, joint replacement, neck pain, SOB, bariatric surgery, sleep apnea . Goals Three Impairment decreased right UE ROM Short Term Goal (STG) Patient to be independent and compliant with HEP for purposes of ROM and edema reduction STG Duration 04/04/20 Education Department Chair Goal (LTG) Patient to demonstrate right UE ROM WNL to allow her to perform all usual activities including reaching overhead and donning/doffing her bra without difficulty LTG Duration 05/03/19 Two Impairment pain right UE, neck, and chest Penitentiary Goal (LTG) Decrease pain by at least 50% to improve activity tolerance and quality of life. LTG Duration 05/03/19 One Impairment lymphedema right UE and chest wall Short Term Goal (STG) Decrease and stabilize lymphedema (no increase or decrease greater than 1 cm over the course of 1 week) STG Duration 04/04/20 Penitentiary Goal (LTG) Patient to be independent with all aspects of self management for lymphedema to include self-MLD, sequential lymphedema exercises, be fit with appropriate compression garment(s) and demonstrate correct use LTG Duration 05/03/20 Assessment Summary Assessment Circumferential measurements revealed reduction all measurements right UE. Decreased pain reported. ROM improved in shoulder flexion and abduction. Internal rotation remains limited and painful. Addition of size H Tubigrip for further layering to achieve gradient pressure and better fit subaxillary area. Kinesiotape well tolerated and appears helpful as well. Physical Therapy Plan Frequency and Duration Frequency of Treatment 20 visits Duration of Treatment 12 weeks Plan of Care Start Date 02/03/20 Plan of Care End Date 05/03/20 Therapeutic Interventions Therapeutic Interventions Home Exercise Program, Lymphedema Management,Manual Therapy,Patient/Caregiver Education,Self-Care/Home Management,Soft Tissue Mobilization,Taping, Therapeutic Activities, Therapeutic Exercises Next Visit Focus/Plan Next Note Type Treatment Note Next Visit Plan Continue PT for pain management and lymphedema management.
--- NOTE | 2020-02-14 15:59 | PT.OTN ---
Current Diagnoses Complex regional pain syndrome I of upper limb, bilateral (02/14/20) Myalgia, unspecified site (02/14/20) Physical Therapy Treatment Note PT-OP-A Visit Information Start: 01/31/20 10:46 Freq: Status: Active Protocol: Document 02/14/20 14:26 SAK (Rec: 02/14/20 14:53 [facility] [id number]) Out-Patient Physical Therapy Visit Information Visit Information Visit Type Treatment Note Visit Start Time 14:32 Visit Stop Time 15:47 Total Visit Minutes 69 Visit Number 6 Evaluation Information Evaluation Date 02/03/20 PT-OP-B Current Condition Start: 01/31/20 10:46 Freq: Status: Active Protocol: Document 02/03/20 10:26 SAK (Rec: 02/03/20 10:53 SAK [id number]) Current Condition History of Current Condition Onset Date 2007 Current Complaints bilateral UE pain History of Current Condition 2007 fractured both elbows after a fall at work landed in pushup position. Surgical intervention right radial head replacement. Has had PT multiple times since 2007. 2009 removal of radial head with use of muscle flap per patient. Reports persistent pain, development of CRPS, and gradual onset of swelling in right chest, right UE. Has had 4 nerve blocks with no pain-relieving benefit. 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 Most recently after moving went to [place] [facility]. Some benefit from trial spinal cord stimulator initially, second time stimulator inserted 2014 had bad reaction with some weakness. Now has moved to [place], now goes to [facility], sent to Dr. Berger in [place] who told patient the stimulator may have migrated and wasn't doing her any good. Most recently referred to [facility], physician stated stimulator put in wrong. Has more scar tissue and has refused another stimulator due to that experience. C/o hedaches, severe pain right UE . Has been put on Flexeril due to muscle spasms. Patient reports depression due to her disability, moving from [place], has leukemia, unable to see grandchildren or daughter in [place]. Other daughter across country in [place]. Caregiver for her . Also c/o lymphedema right subaxillary region, possibly related to RSD s/p elbow injury. Went to [facility], therapist told her she couldn' t do anything for her, then sent to DO, didn't have good experience. Prior Treatments and Tests PT, neuromuscular stimulator, medication. Prior Functional Status Baseline Function- ADL's Independent Baseline Function- Mobility Independent Baseline Function- Recreation/Hobbies no limitations Current Functional Impairments (Reported) Functional Limitations- ADL's painful Functional Limitations- Recreation/ painful Hobbies PT-OP-C Subjective Start: 01/31/20 10:46 Freq: Status: Active Protocol: Document 02/14/20 14:26 SAK (Rec: 02/14/20 14:53 [facility] [id number]) OP-PT Subjective Patient Comments Patient Comments Elbow has been better, but again had nerve pain last night. Had to take tape off of her chest due to discomfort when layed down to go to bed. Saw sport psychologist after last PT session. Some skin irritation right UE from kinesiotape. Tubigrip slides down too much, not helpful, agreeable to contact [facility] for consult regarding compression sleeve. PT-OP-F Manual Assessment Start: 01/31/20 10:46 Freq: Status: Active Protocol: Document 02/03/20 10:27 SAK (Rec: 02/03/20 17:25 [facility] [id number]) Manual Assessments Soft Tissue Assessment Soft Tissue Mobility Assessment no fibrosis right UE or chest Other Manual Assessments Other Manual Assessments palpable tightness bilateral upper traps right greater than left PT-OP-J Posture/Palpation/Skin Start: 01/31/20 10:46 Freq: Status: Active Protocol: Document 02/03/20 10:27 SAK (Rec: 02/03/20 17:25 [facility] [id number]) Posture Evaluation Position Sitting Head/C-Spine Posture Forward Head T-Spine Posture Increased Kyphosis Shoulder Posture (L) Rounded,(R) Rounded Scapula Posture (L) Protracted,(R) Protracted PT-OP-K Range of Motion Start: 01/31/20 10:46 Freq: Status: Active Protocol: Document 02/10/20 10:46 SAK (Rec: 02/10/20 10:48 SAK [id number]) Shoulder Goniometric Range of Motion Shoulder Right Active Flexion 155 Abduction 145 PT-OP-N Lymphedema Start: 01/31/20 10:46 Freq: Status: Active Protocol: Document 02/10/20 16:53 [facility] (Rec: 02/10/20 16:57 [facility] [id number]) Lymphedema Measurements Upper Extremity Circumference Measurements Right Affected MCP 20.6 cm Wrist 17.8 cm 5 cm From Wrist Crease 19.7 m 10 cm From Wrist Crease 24.7 cm 15 cm From Wrist Crease 29.8 cm 20 cm From Wrist Crease 32.2 cm 25 cm From Wrist Crease 32.6 cm 30 cm From Wrist Crease 41.6 cm 35 cm From Wrist Crease 48.6 cm 40 cm From Wrist Crease 51.3 cm 45 cm From Wrist Crease 52.9 cm Elbow Joint 61 cm PT-OP-Q Treatments Start: 01/31/20 10:46 Freq: Status: Active Protocol: Document 02/14/20 14:26 [facility] (Rec: 02/14/20 14:53 [facility] [id number]) Therapeutic Exercises Sitting Exercises Pulleys Sitting Exercise Name shoulder flex Reps/Minutes 10x Standing Exercises shld extension with wand Reps/Minutes 10x shoulder ER Equipment Used L1 TB Reps/Minutes 10x shoulder extension Equipment Used L1 TB Reps/Minutes 10x row Equipment Used L1 TB Reps/Minutes 10x wall posture Reps/Minutes 5x Lymphedema Treatment Manual Lymphatic Drainage Location for right chest and right UE Duration 35 Lymphedema Wrapping Body Location right UE Materials kinesiotape Tubigrip H Other 3 fan strips: chest and UE toward supraclavicular antwan for edema reduction Tubigrip size H issued to patient for application from upper forearm to axilla; to be applied at home after adhesive of kinesiotape fully activated Patient Education Self Manual Lymphatic Drainage reviewed PT-OP-T Assessment and Plan Start: 01/31/20 10:46 Freq: Status: Active Protocol: Document 02/14/20 14:26 [facility] (Rec: 02/14/20 14:53 [facility] [id number]) Physical Therapy Assessment Other Concerns Barriers to Rehabilitation PMH: CRPS, depression, anxiety, back pain, dizziness, headaches, hernia, joint replacement, neck pain, SOB, bariatric surgery, sleep apnea . Goals Three Impairment decreased right UE ROM Short Term Goal (STG) Patient to be independent and compliant with HEP for purposes of ROM and edema reduction STG Duration 04/04/20 [facility] Goal (LTG) Patient to demonstrate right UE ROM WNL to allow her to perform all usual activities including reaching overhead and donning/doffing her bra without difficulty LTG Duration 05/03/19 Two Impairment pain right UE, neck, and chest [facility] Goal (LTG) Decrease pain by at least 50% to improve activity tolerance and quality of life. LTG Duration 05/03/19 One Impairment lymphedema right UE and chest wall Short Term Goal (STG) Decrease and stabilize lymphedema (no increase or decrease greater than 1 cm over the course of 1 week) STG Duration 04/04/20 [facility] Goal (LTG) Patient to be independent with all aspects of self management for lymphedema to include self-MLD, sequential lymphedema exercises, be fit with appropriate compression garment(s) and demonstrate correct use LTG Duration 05/03/20 Assessment Summary Assessment Modification of kinesiotape to avoid irritated areas. Tubigrip not working for patient, slides down too much. Will be contacting [employer] in [place]. Physical Therapy Plan Frequency and Duration Frequency of Treatment 20 visits Duration of Treatment 12 weeks Plan of Care Start Date 02/03/20 Plan of Care End Date 05/03/20 Therapeutic Interventions Therapeutic Interventions Home Exercise Program, Lymphedema Management,Manual Therapy,Patient/Caregiver Education,Self-Care/Home Management,Soft Tissue Mobilization,Taping, Therapeutic Activities, Therapeutic Exercises Next Visit Focus/Plan Next Note Type Treatment Note Next Visit Plan Patient to contact [facility] regarding compression. Continue PT for pain management, lymphedema management. [id number]
--- NOTE | 2020-02-15 13:03 | PT-OP ANOTE ---
cancelled due to cough
--- NOTE | 2020-02-16 09:57 | PT-OP ANOTE ---
cancelled due to not feeling well
--- NOTE | 2020-02-22 16:01 | PT.OTN ---
Current Diagnoses Complex regional pain syndrome I of upper limb, bilateral (02/22/20) Myalgia, unspecified site (02/22/20) Physical Therapy Treatment Note PT-OP-A Visit Information Start: 01/31/20 10:46 Freq: Status: Active Protocol: Document 02/22/20 14:32 SAK (Rec: 02/22/20 14:37 SAK [id number]) Out-Patient Physical Therapy Visit Information Visit Information Visit Type Treatment Note Visit Start Time 14:30 Visit Stop Time 13:46 Total Visit Minutes 76 Visit Number 7 Evaluation Information Evaluation Date 02/03/20 PT-OP-B Current Condition Start: 01/31/20 10:46 Freq: Status: Active Protocol: Document 02/03/20 10:26 SAK (Rec: 02/03/20 10:53 SAK [id number]) Current Condition History of Current Condition Onset Date 2007 Current Complaints bilateral UE pain History of Current Condition 2007 fractured both elbows after a fall at work landed in pushup position. Surgical intervention right radial head replacement. Has had PT multiple times since 2007. 2009 removal of radial head with use of muscle flap per patient. Reports persistent pain, development of CRPS, and gradual onset of swelling in right chest, right UE. Has had 4 nerve blocks with no pain-relieving benefit. 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 Most recently after moving went to [place] [facility]. Some benefit from trial spinal cord stimulator initially, second time stimulator inserted 2014 had bad reaction with some weakness. Now has moved to [place], now goes to [facility], sent to Dr. Berger in [place] who told patient the stimulator may have migrated and wasn't doing her any good. Most recently referred to [facility], physician stated stimulator put in wrong. Has more scar tissue and has refused another stimulator due to that experience. C/o hedaches, severe pain right UE . Has been put on Flexeril due to muscle spasms. Patient reports depression due to her disability, moving from [place], has leukemia, unable to see grandchildren or daughter in [place]. Other daughter across country in [place]. Caregiver for her . Also c/o lymphedema right subaxillary region, possibly related to RSD s/p elbow injury. Went to [facility], therapist told her she couldn' t do anything for her, then sent to DO, didn't have good experience. Prior Treatments and Tests PT, neuromuscular stimulator, medication. Prior Functional Status Baseline Function- ADL's Independent Baseline Function- Mobility Independent Baseline Function- Recreation/Hobbies no limitations Current Functional Impairments (Reported) Functional Limitations- ADL's painful Functional Limitations- Recreation/ painful Hobbies PT-OP-C Subjective Start: 01/31/20 10:46 Freq: Status: Active Protocol: Document 02/22/20 14:32 SAK (Rec: 02/22/20 14:37 SAK [id number]) OP-PT Subjective Patient Comments Patient Comments Reports had a worse cough than usual; has chronic cough, CT has shown spots on lungs (last in 2019). Now back to baseline. PT-OP-F Manual Assessment Start: 01/31/20 10:46 Freq: Status: Active Protocol: Document 02/03/20 10:27 SAK (Rec: 02/03/20 17:25 SAK [id number]) Manual Assessments Soft Tissue Assessment Soft Tissue Mobility Assessment no fibrosis right UE or chest Other Manual Assessments Other Manual Assessments palpable tightness bilateral upper traps right greater than left PT-OP-J Posture/Palpation/Skin Start: 01/31/20 10:46 Freq: Status: Active Protocol: Document 02/03/20 10:27 SAK (Rec: 02/03/20 17:25 SAK [id number]) Posture Evaluation Position Sitting Head/C-Spine Posture Forward Head T-Spine Posture Increased Kyphosis Shoulder Posture (L) Rounded,(R) Rounded Scapula Posture (L) Protracted,(R) Protracted PT-OP-K Range of Motion Start: 01/31/20 10:46 Freq: Status: Active Protocol: Document 02/10/20 10:46 SAK (Rec: 02/10/20 10:48 SAK [id number]) Shoulder Goniometric Range of Motion Shoulder Right Active Flexion 155 Abduction 145 PT-OP-N Lymphedema Start: 01/31/20 10:46 Freq: Status: Active Protocol: Document 02/10/20 16:53 SAK (Rec: 02/10/20 16:57 SAK [id number]) Lymphedema Measurements Upper Extremity Circumference Measurements Right Affected MCP 20.6 cm Wrist 17.8 cm 5 cm From Wrist Crease 19.7 m 10 cm From Wrist Crease 24.7 cm 15 cm From Wrist Crease 29.8 cm 20 cm From Wrist Crease 32.2 cm 25 cm From Wrist Crease 32.6 cm 30 cm From Wrist Crease 41.6 cm 35 cm From Wrist Crease 48.6 cm 40 cm From Wrist Crease 51.3 cm 45 cm From Wrist Crease 52.9 cm Elbow Joint 61 cm PT-OP-Q Treatments Start: 01/31/20 10:46 Freq: Status: Active Protocol: Document 02/22/20 14:32 [facility] (Rec: 02/22/20 14:37 [facility] [id number]) Therapeutic Exercises Sitting Exercises Pulleys Sitting Exercise Name shoulder flex Reps/Minutes 10x Standing Exercises shld extension with wand Reps/Minutes 10x Lymphedema Treatment Manual Lymphatic Drainage Location for right chest and right UE Duration 35 Lymphedema Wrapping Body Location right UE Materials kinesiotape Other 3 fan strips: chest and UE toward supraclavicular antwan for edema reduction PT-OP-T Assessment and Plan Start: 01/31/20 10:46 Freq: Status: Active Protocol: Document 02/22/20 14:32 [facility] (Rec: 02/22/20 14:37 [facility] [id number]) Physical Therapy Assessment Other Concerns Barriers to Rehabilitation PMH: CRPS, depression, anxiety, back pain, dizziness, headaches, hernia, joint replacement, neck pain, SOB, bariatric surgery, sleep apnea . Goals Three Impairment decreased right UE ROM Short Term Goal (STG) Patient to be independent and compliant with HEP for purposes of ROM and edema reduction STG Duration 04/04/20 Shelter Goal (LTG) Patient to demonstrate right UE ROM WNL to allow her to perform all usual activities including reaching overhead and donning/doffing her bra without difficulty LTG Duration 05/03/19 Two Impairment pain right UE, neck, and chest Shelter Goal (LTG) Decrease pain by at least 50% to improve activity tolerance and quality of life. LTG Duration 05/03/19 One Impairment lymphedema right UE and chest wall Short Term Goal (STG) Decrease and stabilize lymphedema (no increase or decrease greater than 1 cm over the course of 1 week) STG Duration 04/04/20 Shelter Goal (LTG) Patient to be independent with all aspects of self management for lymphedema to include self-MLD, sequential lymphedema exercises, be fit with appropriate compression garment(s) and demonstrate correct use LTG Duration 05/03/20 Assessment Summary Assessment stable measurements in forearm and at elbow, but all measurements above elbow increased, subaxillary measurement around trunk decreased, chest measurement increased; missed three PT appointments due to cough. She has not yet contacted compression marine pipefitter as recommended. Physical Therapy Plan Frequency and Duration Frequency of Treatment 20 visits Duration of Treatment 12 weeks Plan of Care Start Date 02/03/20 Plan of Care End Date 05/03/20 Therapeutic Interventions Therapeutic Interventions Home Exercise Program, Lymphedema Management,Manual Therapy,Patient/Caregiver Education,Self-Care/Home Management,Soft Tissue Mobilization,Taping, Therapeutic Activities, Therapeutic Exercises Next Visit Focus/Plan Next Note Type Treatment Note Next Visit Plan Patient to contact [facility] regarding compression. Continue PT for pain management, lymphedema management.
--- NOTE | 2020-02-24 15:37 | PT.OTN ---
Current Diagnoses Complex regional pain syndrome I of upper limb, bilateral (02/24/20) Myalgia, unspecified site (02/24/20) Physical Therapy Treatment Note PT-OP-A Visit Information Start: 01/31/20 10:46 Freq: Status: Active Protocol: Document 02/24/20 14:29 SAK (Rec: 02/24/20 14:37 SAK [id number]) Out-Patient Physical Therapy Visit Information Visit Information Visit Type Treatment Note Visit Start Time 14:30 Visit Stop Time 15:39 Total Visit Minutes 69 Visit Number 8 Evaluation Information Evaluation Date 02/03/20 PT-OP-B Current Condition Start: 01/31/20 10:46 Freq: Status: Active Protocol: Document 02/03/20 10:26 SAK (Rec: 02/03/20 10:53 SAK [id number]) Current Condition History of Current Condition Onset Date 2007 Current Complaints bilateral UE pain History of Current Condition 2007 fractured both elbows after a fall at work landed in pushup position. Surgical intervention right radial head replacement. Has had PT multiple times since 2007. 2009 removal of radial head with use of muscle flap per patient. Reports persistent pain, development of CRPS, and gradual onset of swelling in right chest, right UE. Has had 4 nerve blocks with no pain-relieving benefit. Has seen pattern painter; was sent to PT for lymphatic massage, MFR and aquatic therapy; states she benefited from all. Most recently after moving went to [place] [facility]. Some benefit from trial spinal cord stimulator initially, second time stimulator inserted 2014 had bad reaction with some weakness. Now has moved to [place], now goes to [facility], sent to Dr. Berger in [place] who told patient the stimulator may have migrated and wasn't doing her any good. Most recently referred to [facility], physician stated stimulator put in wrong. Has more scar tissue and has refused another stimulator due to that experience. C/o hedaches, severe pain right UE . Has been put on Flexeril due to muscle spasms. Patient reports depression due to her disability, moving from [place], has leukemia, unable to see grandchildren or daughter in [place]. Other daughter across country in [place]. Caregiver for her . Also c/o lymphedema right subaxillary region, possibly related to RSD s/p elbow injury. Went to [facility], therapist told her she couldn' t do anything for her, then sent to DO, didn't have good experience. Prior Treatments and Tests PT, neuromuscular stimulator, medication. Prior Functional Status Baseline Function- ADL's Independent Baseline Function- Mobility Independent Baseline Function- Recreation/Hobbies no limitations Current Functional Impairments (Reported) Functional Limitations- ADL's painful Functional Limitations- Recreation/ painful Hobbies PT-OP-C Subjective Start: 01/31/20 10:46 Freq: Status: Active Protocol: Document 02/24/20 14:29 SAK (Rec: 02/24/20 14:37 SAK [id number]) OP-PT Subjective Patient Comments Patient Comments Feels less swollen after last session though had to remove the kinesiotape due to pulling sensation, would like to leave off and not be taped today. Reports decreased pain since starting PT PT-OP-F Manual Assessment Start: 01/31/20 10:46 Freq: Status: Active Protocol: Document 02/03/20 10:27 SAK (Rec: 02/03/20 17:25 SAK [id number]) Manual Assessments Soft Tissue Assessment Soft Tissue Mobility Assessment no fibrosis right UE or chest Other Manual Assessments Other Manual Assessments palpable tightness bilateral upper traps right greater than left PT-OP-J Posture/Palpation/Skin Start: 01/31/20 10:46 Freq: Status: Active Protocol: Document 02/03/20 10:27 SAK (Rec: 02/03/20 17:25 SAK [id number]) Posture Evaluation Position Sitting Head/C-Spine Posture Forward Head T-Spine Posture Increased Kyphosis Shoulder Posture (L) Rounded,(R) Rounded Scapula Posture (L) Protracted,(R) Protracted PT-OP-K Range of Motion Start: 01/31/20 10:46 Freq: Status: Active Protocol: Document 02/10/20 10:46 SAK (Rec: 02/10/20 10:48 SAK [id number]) Shoulder Goniometric Range of Motion Shoulder Right Active Flexion 155 Abduction 145 PT-OP-N Lymphedema Start: 01/31/20 10:46 Freq: Status: Active Protocol: Document 02/10/20 16:53 SAK (Rec: 02/10/20 16:57 SAK [id number]) Lymphedema Measurements Upper Extremity Circumference Measurements Right Affected MCP 20.6 cm Wrist 17.8 cm 5 cm From Wrist Crease 19.7 m 10 cm From Wrist Crease 24.7 cm 15 cm From Wrist Crease 29.8 cm 20 cm From Wrist Crease 32.2 cm 25 cm From Wrist Crease 32.6 cm 30 cm From Wrist Crease 41.6 cm 35 cm From Wrist Crease 48.6 cm 40 cm From Wrist Crease 51.3 cm 45 cm From Wrist Crease 52.9 cm Elbow Joint 61 cm PT-OP-Q Treatments Start: 01/31/20 10:46 Freq: Status: Active Protocol: Document 02/24/20 14:29 [facility] (Rec: 02/24/20 14:37 [facility] [id number]) Therapeutic Exercises Sidelying Exercises shoulder abduction Reps/Minutes 10x open book Reps/Minutes 5x Sitting Exercises Pulleys Comments home Standing Exercises shld extension with wand Reps/Minutes 10x Lymphedema Treatment Manual Lymphatic Drainage Location for right chest and right UE Duration 41 PT-OP-T Assessment and Plan Start: 01/31/20 10:46 Freq: Status: Active Protocol: Document 02/24/20 14:29 [facility] (Rec: 02/24/20 14:37 [facility] [id number]) Physical Therapy Assessment Other Concerns Barriers to Rehabilitation PMH: CRPS, depression, anxiety, back pain, dizziness, headaches, hernia, joint replacement, neck pain, SOB, bariatric surgery, sleep apnea . Goals Three Impairment decreased right UE ROM Short Term Goal (STG) Patient to be independent and compliant with HEP for purposes of ROM and edema reduction STG Duration 04/04/20 Part Maker Goal (LTG) Patient to demonstrate right UE ROM WNL to allow her to perform all usual activities including reaching overhead and donning/doffing her bra without difficulty LTG Duration 05/03/19 Two Impairment pain right UE, neck, and chest Part Maker Goal (LTG) Decrease pain by at least 50% to improve activity tolerance and quality of life. LTG Duration 05/03/19 One Impairment lymphedema right UE and chest wall Short Term Goal (STG) Decrease and stabilize lymphedema (no increase or decrease greater than 1 cm over the course of 1 week) STG Duration 04/04/20 Care Home Goal (LTG) Patient to be independent with all aspects of self management for lymphedema to include self-MLD, sequential lymphedema exercises, be fit with appropriate compression garment(s) and demonstrate correct use LTG Duration 05/03/20 Assessment Summary Assessment Decreased lymphedema throughout arm and chest today . Has appointment scheduled with Rekha at [facility] in 1 week from tomorrow for consultation regarding compression garment. Physical Therapy Plan Frequency and Duration Frequency of Treatment 20 visits Duration of Treatment 12 weeks Plan of Care Start Date 02/03/20 Plan of Care End Date 05/03/20 Therapeutic Interventions Therapeutic Interventions Home Exercise Program, Lymphedema Management,Manual Therapy,Patient/Caregiver Education,Self-Care/Home Management,Soft Tissue Mobilization,Taping, Therapeutic Activities, Therapeutic Exercises Next Visit Focus/Plan Next Note Type Treatment Note Next Visit Plan Continue lymphedema management , pain management. Continue education for self management.
--- NOTE | 2020-02-29 16:00 | PT.OTN ---
Current Diagnoses Complex regional pain syndrome I of upper limb, bilateral (02/29/20) Myalgia, unspecified site (02/29/20) Physical Therapy Treatment Note PT-OP-A Visit Information Start: 01/31/20 10:46 Freq: Status: Active Protocol: Document 02/29/20 14:26 SAK (Rec: 02/29/20 14:45 SAK [id number]) Out-Patient Physical Therapy Visit Information Visit Information Visit Type Treatment Note Visit Start Time 14:30 Visit Stop Time 15:42 Total Visit Minutes 72 Visit Number 9 Evaluation Information Evaluation Date 02/03/20 PT-OP-B Current Condition Start: 01/31/20 10:46 Freq: Status: Active Protocol: Document 02/03/20 10:26 SAK (Rec: 02/03/20 10:53 SAK [id number]) Current Condition History of Current Condition Onset Date 2007 Current Complaints bilateral UE pain History of Current Condition 2007 fractured both elbows after a fall at work landed in pushup position. Surgical intervention right radial head replacement. Has had PT multiple times since 2007. 2009 removal of radial head with use of muscle flap per patient. Reports persistent pain, development of CRPS, and gradual onset of swelling in right chest, right UE. Has had 4 nerve blocks with no pain-relieving benefit. 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 Most recently after moving went to [place] [facility]. Some benefit from trial spinal cord stimulator initially, second time stimulator inserted 2014 had bad reaction with some weakness. Now has moved to [place], now goes to [facility], sent to Dr. Berger in [place] who told patient the stimulator may have migrated and wasn't doing her any good. Most recently referred to [facility], physician stated stimulator put in wrong. Has more scar tissue and has refused another stimulator due to that experience. C/o hedaches, severe pain right UE . Has been put on Flexeril due to muscle spasms. Patient reports depression due to her disability, moving from [place], has leukemia, unable to see grandchildren or daughter in [place]. Other daughter across country in [place]. Caregiver for her . Also c/o lymphedema right subaxillary region, possibly related to RSD s/p elbow injury. Went to [facility], therapist told her she couldn' t do anything for her, then sent to DO, didn't have good experience. Prior Treatments and Tests PT, neuromuscular stimulator, medication. Prior Functional Status Baseline Function- ADL's Independent Baseline Function- Mobility Independent Baseline Function- Recreation/Hobbies no limitations Current Functional Impairments (Reported) Functional Limitations- ADL's painful Functional Limitations- Recreation/ painful Hobbies PT-OP-C Subjective Start: 01/31/20 10:46 Freq: Status: Active Protocol: Document 02/29/20 14:26 SAK (Rec: 02/29/20 14:45 SAK [id number]) OP-PT Subjective Patient Comments Patient Comments Maybe a bit more swollen, processed blackberries all day yesterday. Prozac dosage increased by her physician at last appt 02/25/20. PT-OP-F Manual Assessment Start: 01/31/20 10:46 Freq: Status: Active Protocol: Document 02/03/20 10:27 SAK (Rec: 02/03/20 17:25 SAK [id number]) Manual Assessments Soft Tissue Assessment Soft Tissue Mobility Assessment no fibrosis right UE or chest Other Manual Assessments Other Manual Assessments palpable tightness bilateral upper traps right greater than left PT-OP-J Posture/Palpation/Skin Start: 01/31/20 10:46 Freq: Status: Active Protocol: Document 02/03/20 10:27 SAK (Rec: 02/03/20 17:25 SAK [id number]) Posture Evaluation Position Sitting Head/C-Spine Posture Forward Head T-Spine Posture Increased Kyphosis Shoulder Posture (L) Rounded,(R) Rounded Scapula Posture (L) Protracted,(R) Protracted PT-OP-K Range of Motion Start: 01/31/20 10:46 Freq: Status: Active Protocol: Document 02/10/20 10:46 SAK (Rec: 02/10/20 10:48 SAK [id number]) Shoulder Goniometric Range of Motion Shoulder Right Active Flexion 155 Abduction 145 PT-OP-N Lymphedema Start: 01/31/20 10:46 Freq: Status: Active Protocol: Document 02/10/20 16:53 SAK (Rec: 02/10/20 16:57 SAK [id number]) Lymphedema Measurements Upper Extremity Circumference Measurements Right Affected MCP 20.6 cm Wrist 17.8 cm 5 cm From Wrist Crease 19.7 m 10 cm From Wrist Crease 24.7 cm 15 cm From Wrist Crease 29.8 cm 20 cm From Wrist Crease 32.2 cm 25 cm From Wrist Crease 32.6 cm 30 cm From Wrist Crease 41.6 cm 35 cm From Wrist Crease 48.6 cm 40 cm From Wrist Crease 51.3 cm 45 cm From Wrist Crease 52.9 cm Elbow Joint 61 cm PT-OP-Q Treatments Start: 01/31/20 10:46 Freq: Status: Active Protocol: Document 02/29/20 14:26 [facility] (Rec: 02/29/20 14:45 [facility] [id number]) Therapeutic Exercises Sidelying Exercises shoulder abduction Reps/Minutes 5x Comments end range stretch open book Reps/Minutes 5x Comments cues for no movement below waist to increase stretch Sitting Exercises Pulleys Sitting Exercise Name shoulder flex Reps/Minutes 10x Standing Exercises shld extension with wand Reps/Minutes 10x shoulder ER Equipment Used L1 TB Reps/Minutes 10x shoulder extension Equipment Used L1 TB Reps/Minutes 10x row Equipment Used L1 TB Reps/Minutes 10x Lymphedema Treatment Manual Lymphatic Drainage Location for right chest and right UE Duration 40 Lymphedema Wrapping Body Location right UE Materials kinesiotape Other 2 fan strips: Posterior UE and elbow for edema reduction Compression Garment Assessment Compression Garment Assessment Details Patient has appointment for consult 03/04/20 Patient Education Self Manual Lymphatic Drainage instructed verbally and with kristalo, patient to look for handout given PT-OP-T Assessment and Plan Start: 01/31/20 10:46 Freq: Status: Active Protocol: Document 02/29/20 14:26 [facility] (Rec: 02/29/20 14:45 [facility] [id number]) Physical Therapy Assessment Other Concerns Barriers to Rehabilitation PMH: CRPS, depression, anxiety, back pain, dizziness, headaches, hernia, joint replacement, neck pain, SOB, bariatric surgery, sleep apnea . Goals Three Impairment decreased right UE ROM Short Term Goal (STG) Patient to be independent and compliant with HEP for purposes of ROM and edema reduction STG Duration 04/04/20 Skilled Nursing Goal (LTG) Patient to demonstrate right UE ROM WNL to allow her to perform all usual activities including reaching overhead and donning/doffing her bra without difficulty LTG Duration 05/03/19 Two Impairment pain right UE, neck, and chest Skilled Nursing Goal (LTG) Decrease pain by at least 50% to improve activity tolerance and quality of life. LTG Duration 05/03/19 One Impairment lymphedema right UE and chest wall Short Term Goal (STG) Decrease and stabilize lymphedema (no increase or decrease greater than 1 cm over the course of 1 week) STG Duration 04/04/20 Skilled Nursing Goal (LTG) Patient to be independent with all aspects of self management for lymphedema to include self-MLD, sequential lymphedema exercises, be fit with appropriate compression garment(s) and demonstrate correct use LTG Duration 05/03/20 Assessment Summary Assessment Patient has appointment at [facility] 03/04/20 for consult for compression sleeve. Increased edema after heavy use of right UE with processing of blackberries yesterday. Physical Therapy Plan Frequency and Duration Frequency of Treatment 20 visits Duration of Treatment 12 weeks Plan of Care Start Date 02/03/20 Plan of Care End Date 05/03/20 Therapeutic Interventions Therapeutic Interventions Home Exercise Program, Lymphedema Management,Manual Therapy,Patient/Caregiver Education,Self-Care/Home Management,Soft Tissue Mobilization,Taping, Therapeutic Activities, Therapeutic Exercises Next Visit Focus/Plan Next Note Type Treatment Note Next Visit Plan Circumferential measurements. Continue lymphedema management, pain management. Continue education for self management, review self MLD, issue replacement handout if patient unable to find.
--- NOTE | 2020-03-02 16:13 | PT.OTN ---
Current Diagnoses Complex regional pain syndrome I of upper limb, bilateral (03/02/20) Myalgia, unspecified site (03/02/20) Physical Therapy Treatment Note PT-OP-A Visit Information Start: 01/31/20 10:46 Freq: Status: Active Protocol: Document 03/02/20 14:28 SAK (Rec: 03/02/20 14:39 SAK [id number]) Out-Patient Physical Therapy Visit Information Visit Information Visit Type Progress Note Visit Start Time 14:30 Visit Stop Time 15:49 Total Visit Minutes 80 Visit Number 10 Evaluation Information Evaluation Date 02/03/20 PT-OP-B Current Condition Start: 01/31/20 10:46 Freq: Status: Active Protocol: Document 02/03/20 10:26 SAK (Rec: 02/03/20 10:53 SAK [id number]) Current Condition History of Current Condition Onset Date 2007 Current Complaints bilateral UE pain History of Current Condition 2007 fractured both elbows after a fall at work landed in pushup position. Surgical intervention right radial head replacement. Has had PT multiple times since 2007. 2009 removal of radial head with use of muscle flap per patient. Reports persistent pain, development of CRPS, and gradual onset of swelling in right chest, right UE. Has had 4 nerve blocks with no pain-relieving benefit. 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 Most recently after moving went to [place] [facility]. Some benefit from trial spinal cord stimulator initially, second time stimulator inserted 2014 had bad reaction with some weakness. Now has moved to [place], now goes to [facility], sent to Dr. Berger in [place] who told patient the stimulator may have migrated and wasn't doing her any good. Most recently referred to [facility], physician stated stimulator put in wrong. Has more scar tissue and has refused another stimulator due to that experience. C/o hedaches, severe pain right UE . Has been put on Flexeril due to muscle spasms. Patient reports depression due to her disability, moving from [place], has leukemia, unable to see grandchildren or daughter in [place]. Other daughter across country in [place]. Caregiver for her . Also c/o lymphedema right subaxillary region, possibly related to RSD s/p elbow injury. Went to [facility], therapist told her she couldn' t do anything for her, then sent to DO, didn't have good experience. Prior Treatments and Tests PT, neuromuscular stimulator, medication. Prior Functional Status Baseline Function- ADL's Independent Baseline Function- Mobility Independent Baseline Function- Recreation/Hobbies no limitations Current Functional Impairments (Reported) Functional Limitations- ADL's painful Functional Limitations- Recreation/ painful Hobbies PT-OP-C Subjective Start: 01/31/20 10:46 Freq: Status: Active Protocol: Document 03/02/20 14:28 SAK (Rec: 03/02/20 14:39 SAK [id number]) OP-PT Subjective Patient Comments Patient Comments Reports she feels her arm hurting and more swollen today . Agreeable to trial lymphedema UE wrapping today. PT-OP-F Manual Assessment Start: 01/31/20 10:46 Freq: Status: Active Protocol: Document 02/03/20 10:27 SAK (Rec: 02/03/20 17:25 SAK [id number]) Manual Assessments Soft Tissue Assessment Soft Tissue Mobility Assessment no fibrosis right UE or chest Other Manual Assessments Other Manual Assessments palpable tightness bilateral upper traps right greater than left PT-OP-J Posture/Palpation/Skin Start: 01/31/20 10:46 Freq: Status: Active Protocol: Document 02/03/20 10:27 SAK (Rec: 02/03/20 17:25 SAK [id number]) Posture Evaluation Position Sitting Head/C-Spine Posture Forward Head T-Spine Posture Increased Kyphosis Shoulder Posture (L) Rounded,(R) Rounded Scapula Posture (L) Protracted,(R) Protracted PT-OP-K Range of Motion Start: 01/31/20 10:46 Freq: Status: Active Protocol: Document 02/10/20 10:46 SAK (Rec: 02/10/20 10:48 SAK [id number]) Shoulder Goniometric Range of Motion Shoulder Right Active Flexion 155 Abduction 145 PT-OP-N Lymphedema Start: 01/31/20 10:46 Freq: Status: Active Protocol: Document 03/02/20 14:28 SAK (Rec: 03/02/20 16:13 SAK [id number]) Lymphedema Measurements Upper Extremity Circumference Measurements Right Affected MCP 20.8 cm Wrist 18 cm 5 cm From Wrist Crease 21 cm 10 cm From Wrist Crease 25.3 cm 15 cm From Wrist Crease 31 cm 20 cm From Wrist Crease 33 cm 25 cm From Wrist Crease 35.7 cm 30 cm From Wrist Crease 42.7 cm 35 cm From Wrist Crease 48.2 cm 40 cm From Wrist Crease 51.8 cm 45 cm From Wrist Crease 52.2 cm Elbow Joint 60 cm PT-OP-Q Treatments Start: 01/31/20 10:46 Freq: Status: Active Protocol: Document 03/02/20 14:28 [facility] (Rec: 03/02/20 14:39 [facility] [id number]) Cardio Equipment Recumbent Stepper (Sci-Fit) Duration (Minutes) 6 Resistance 1 Seat Position 11 Therapeutic Exercises Sidelying Exercises open book Reps/Minutes 5x Comments cues for no movement below waist to increase stretch Lymphedema Treatment Manual Lymphatic Drainage Location for right chest and right UE Duration 30 Lymphedema Wrapping Body Location right UE Materials 1 finger wraps, Tricofix size G, Artiflex, Comprilan Sequential Lymphedema Exercises Location right UE Duration 5 min Compression Garment Assessment Compression Garment Assessment Details Patient has appointment for consult 03/04/20 but will now reschedule due to open to lymphedema wrapping, PT previously understood patient to not want to be wrapped. Patient Education Other self-wrapping, written instructions issued previously PT-OP-T Assessment and Plan Start: 01/31/20 10:46 Freq: Status: Active Protocol: Document 03/02/20 14:28 [facility] (Rec: 03/02/20 14:39 [facility] [id number]) Physical Therapy Assessment Other Concerns Barriers to Rehabilitation PMH: CRPS, depression, anxiety, back pain, dizziness, headaches, hernia, joint replacement, neck pain, SOB, bariatric surgery, sleep apnea . Goals Three Impairment decreased right UE ROM Short Term Goal (STG) Patient to be independent and compliant with HEP for purposes of ROM and edema reduction 03/02/20: good goal progress STG Duration 04/04/20 [facility] Goal (LTG) Patient to demonstrate right UE ROM WNL to allow her to perform all usual activities including reaching overhead and donning/doffing her bra without difficulty 03/01/20: good goal progress LTG Duration 05/03/19 Two Impairment pain right UE, neck, and chest Penitentiary Goal (LTG) Decrease pain by at least 50% to improve activity tolerance and quality of life. 03/01/20: some goal progress LTG Duration 05/03/19 One Impairment lymphedema right UE and chest wall Short Term Goal (STG) Decrease and stabilize lymphedema (no increase or decrease greater than 1 cm over the course of 1 week) 03/01/20: goal progress, though now that patient able to be wrapped, feel patient will make better progress. STG Duration 04/04/20 [facility]iary Goal (LTG) Patient to be independent with all aspects of self management for lymphedema to include self-MLD, sequential lymphedema exercises, be fit with appropriate compression garment(s) and demonstrate correct use 03/01/20: goal progress LTG Duration 05/03/20 Progress Towards Goals Progress Towards Goals Progressing Toward Goals Assessment Summary Assessment Patient with some increase in swelling in forearm and elbow today no known reason , but decreased in upper arm. PT understood patient previously to not be willing to have lymphedema wrapping due to CRPS so hasn't been done until today. She has been responding overall positively to MLD and ther ex, but feel she will make better progress with lymphedema wrapping She is agreeable and tolerated wrapping well today. Agreeable to postpone appointment with [facility] to achieve further reduction with wrapping and full CLT before being fit with compression sleeve. Physical Therapy Plan Frequency and Duration Frequency of Treatment 20 visits Duration of Treatment 12 weeks Plan of Care Start Date 02/03/20 Plan of Care End Date 05/03/20 Therapeutic Interventions Therapeutic Interventions Home Exercise Program, Lymphedema Management,Manual Therapy,Patient/Caregiver Education,Self-Care/Home Management,Soft Tissue Mobilization,Taping, Therapeutic Activities, Therapeutic Exercises Next Visit Focus/Plan Next Note Type Treatment Note Next Visit Plan Circumferential measurements. Continue lymphedema management, pain management. Continue patient education for self-management to include self-wrapping.
--- NOTE | 2020-03-06 13:35 | PT.OTN ---
Current Diagnoses Complex regional pain syndrome I of upper limb, bilateral (03/06/20) Myalgia, unspecified site (03/06/20) Physical Therapy Treatment Note PT-OP-A Visit Information Start: 01/31/20 10:46 Freq: Status: Active Protocol: Document 03/06/20 13:26 [facility] (Rec: 03/06/20 13:35 [facility] [id number]) Out-Patient Physical Therapy Visit Information Visit Information Visit Type Treatment Note Visit Start Time 09:45 Visit Stop Time 10:30 Total Visit Minutes 45 Visit Number 11 Evaluation Information Evaluation Date 02/03/20 PT-OP-B Current Condition Start: 01/31/20 10:46 Freq: Status: Active Protocol: Document 02/03/20 10:26 SAK (Rec: 02/03/20 10:53 [facility] [id number]) Current Condition History of Current Condition Onset Date 2007 Current Complaints bilateral UE pain History of Current Condition 2007 fractured both elbows after a fall at work landed in pushup position. Surgical intervention right radial head replacement. Has had PT multiple times since 2007. 2009 removal of radial head with use of muscle flap per patient. Reports persistent pain, development of CRPS, and gradual onset of swelling in right chest, right UE. Has had 4 nerve blocks with no pain-relieving benefit. 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 Most recently after moving went to [place] [facility]. Some benefit from trial spinal cord stimulator initially, second time stimulator inserted 2014 had bad reaction with some weakness. Now has moved to [place], now goes to [facility], sent to Dr. Berger in [place] who told patient the stimulator may have migrated and wasn't doing her any good. Most recently referred to [facility], physician stated stimulator put in wrong. Has more scar tissue and has refused another stimulator due to that experience. C/o hedaches, severe pain right UE . Has been put on Flexeril due to muscle spasms. Patient reports depression due to her disability, moving from [place], has leukemia, unable to see grandchildren or daughter in [place]. Other daughter across country in [place]. Caregiver for her . Also c/o lymphedema right subaxillary region, possibly related to RSD s/p elbow injury. Went to [facility], therapist told her she couldn' t do anything for her, then sent to DO, didn't have good experience. Prior Treatments and Tests PT, neuromuscular stimulator, medication. Prior Functional Status Baseline Function- ADL's Independent Baseline Function- Mobility Independent Baseline Function- Recreation/Hobbies no limitations Current Functional Impairments (Reported) Functional Limitations- ADL's painful Functional Limitations- Recreation/ painful Hobbies PT-OP-C Subjective Start: 01/31/20 10:46 Freq: Status: Active Protocol: Document 03/06/20 13:26 SAK (Rec: 03/06/20 13:35 SAK [id number]) OP-PT Subjective Patient Comments Patient Comments Reports she woke up in the middle of the night with the wrap slid down, fingers purple . Unable to rewrap. PT-OP-F Manual Assessment Start: 01/31/20 10:46 Freq: Status: Active Protocol: Document 02/03/20 10:27 SAK (Rec: 02/03/20 17:25 SAK [id number]) Manual Assessments Soft Tissue Assessment Soft Tissue Mobility Assessment no fibrosis right UE or chest Other Manual Assessments Other Manual Assessments palpable tightness bilateral upper traps right greater than left PT-OP-J Posture/Palpation/Skin Start: 01/31/20 10:46 Freq: Status: Active Protocol: Document 02/03/20 10:27 SAK (Rec: 02/03/20 17:25 [facility] [id number]) Posture Evaluation Position Sitting Head/C-Spine Posture Forward Head T-Spine Posture Increased Kyphosis Shoulder Posture (L) Rounded,(R) Rounded Scapula Posture (L) Protracted,(R) Protracted PT-OP-K Range of Motion Start: 01/31/20 10:46 Freq: Status: Active Protocol: Document 02/10/20 10:46 SAK (Rec: 02/10/20 10:48 SAK [id number]) Shoulder Goniometric Range of Motion Shoulder Right Active Flexion 155 Abduction 145 PT-OP-N Lymphedema Start: 01/31/20 10:46 Freq: Status: Active Protocol: Document 03/02/20 14:28 SAK (Rec: 03/02/20 16:13 SAK [id number]) Lymphedema Measurements Upper Extremity Circumference Measurements Right Affected MCP 20.8 cm Wrist 18 cm 5 cm From Wrist Crease 21 cm 10 cm From Wrist Crease 25.3 cm 15 cm From Wrist Crease 31 cm 20 cm From Wrist Crease 33 cm 25 cm From Wrist Crease 35.7 cm 30 cm From Wrist Crease 42.7 cm 35 cm From Wrist Crease 48.2 cm 40 cm From Wrist Crease 51.8 cm 45 cm From Wrist Crease 52.2 cm Elbow Joint 60 cm PT-OP-Q Treatments Start: 01/31/20 10:46 Freq: Status: Active Protocol: Document 03/06/20 13:26 [facility] (Rec: 03/06/20 13:35 [facility] [id number]) Cardio Equipment Recumbent Stepper (Sci-Fit) Duration (Minutes) 10 Resistance 1 Seat Position 11 Other to facilitate lymphatic flow after wrapping Lymphedema Treatment Lymphedema Wrapping Body Location right UE Materials 1 finger wraps, Tricofix size G, Artiflex, Comprilan Other done 2x due to thumb coming undone first time after exercise started Compression Garment Assessment Compression Garment Assessment Details Patient has postponed appointment Patient Education Other issued written handout as patient folder did not have from previously. Reviewed with arturopraneeth. PT-OP-T Assessment and Plan Start: 01/31/20 10:46 Freq: Status: Active Protocol: Document 03/06/20 13:26 [facility] (Rec: 03/06/20 13:35 [facility] [id number]) Physical Therapy Assessment Other Concerns Barriers to Rehabilitation PMH: CRPS, depression, anxiety, back pain, dizziness, headaches, hernia, joint replacement, neck pain, SOB, bariatric surgery, sleep apnea . Goals Three Impairment decreased right UE ROM Short Term Goal (STG) Patient to be independent and compliant with HEP for purposes of ROM and edema reduction 03/02/20: good goal progress STG Duration 04/04/20 [facility] Goal (LTG) Patient to demonstrate right UE ROM WNL to allow her to perform all usual activities including reaching overhead and donning/doffing her bra without difficulty 03/01/20: good goal progress LTG Duration 05/03/19 Two Impairment pain right UE, neck, and chest Bulk Delivery Driver Goal (LTG) Decrease pain by at least 50% to improve activity tolerance and quality of life. 03/01/20: some goal progress LTG Duration 05/03/19 One Impairment lymphedema right UE and chest wall Short Term Goal (STG) Decrease and stabilize lymphedema (no increase or decrease greater than 1 cm over the course of 1 week) 03/01/20: goal progress, though now that patient able to be wrapped, feel patient will make better progress. STG Duration 04/04/20 [facility] Goal (LTG) Patient to be independent with all aspects of self management for lymphedema to include self-MLD, sequential lymphedema exercises, be fit with appropriate compression garment(s) and demonstrate correct use 03/01/20: goal progress LTG Duration 05/03/20 Assessment Summary Assessment Patient tolerated lymphedema wrapping until the middle of the night then had to remove and was unable to rewrap over the weekend. Further instruction and review of wrapping x 2, patient demonstrated good understanding. No circumferential measurements due to not being wrapped since 03/02/20. Physical Therapy Plan Frequency and Duration Frequency of Treatment 20 visits Duration of Treatment 12 weeks Plan of Care Start Date 02/03/20 Plan of Care End Date 05/03/20 Therapeutic Interventions Therapeutic Interventions Home Exercise Program, Lymphedema Management,Manual Therapy,Patient/Caregiver Education,Self-Care/Home Management,Soft Tissue Mobilization,Taping, Therapeutic Activities, Therapeutic Exercises Next Visit Focus/Plan Next Note Type Treatment Note Next Visit Plan Circumferential measurements. Continue lymphedema management, pain management. Continue patient education for self-management to include self-wrapping.
--- NOTE | 2020-03-07 16:42 | PT.OTN ---
Current Diagnoses Complex regional pain syndrome I of upper limb, bilateral (03/07/20) Myalgia, unspecified site (03/07/20) Physical Therapy Treatment Note PT-OP-A Visit Information Start: 01/31/20 10:46 Freq: Status: Active Protocol: Document 03/07/20 16:33 [facility] (Rec: 03/07/20 16:38 [facility] [id number]) Out-Patient Physical Therapy Visit Information Visit Information Visit Type Treatment Note Visit Start Time 14:40 Visit Stop Time 16:09 Total Visit Minutes 89 Visit Number 12 Evaluation Information Evaluation Date 02/03/20 PT-OP-B Current Condition Start: 01/31/20 10:46 Freq: Status: Active Protocol: Document 02/03/20 10:26 [facility] (Rec: 02/03/20 10:53 [facility] [id number]) Current Condition History of Current Condition Onset Date 2007 Current Complaints bilateral UE pain History of Current Condition 2007 fractured both elbows after a fall at work landed in pushup position. Surgical intervention right radial head replacement. Has had PT multiple times since 2007. 2009 removal of radial head with use of muscle flap per patient. Reports persistent pain, development of CRPS, and gradual onset of swelling in right chest, right UE. Has had 4 nerve blocks with no pain-relieving benefit. Has seen dip painter; was sent to PT for lymphatic massage, MFR and aquatic therapy; states she benefited from all. Most recently after moving went to [place] [facility]. Some benefit from trial spinal cord stimulator initially, second time stimulator inserted 2014 had bad reaction with some weakness. Now has moved to [place], now goes to [facility], sent to Dr. Berger in [place] who told patient the stimulator may have migrated and wasn't doing her any good. Most recently referred to [facility], physician stated stimulator put in wrong. Has more scar tissue and has refused another stimulator due to that experience. C/o hedaches, severe pain right UE . Has been put on Flexeril due to muscle spasms. Patient reports depression due to her disability, moving from [place], has leukemia, unable to see grandchildren or daughter in [place]. Other daughter across country in [place]. Caregiver for her . Also c/o lymphedema right subaxillary region, possibly related to RSD s/p elbow injury. Went to [facility], therapist told her she couldn' t do anything for her, then sent to DO, didn't have good experience. Prior Treatments and Tests PT, neuromuscular stimulator, medication. Prior Functional Status Baseline Function- ADL's Independent Baseline Function- Mobility Independent Baseline Function- Recreation/Hobbies no limitations Current Functional Impairments (Reported) Functional Limitations- ADL's painful Functional Limitations- Recreation/ painful Hobbies PT-OP-C Subjective Start: 01/31/20 10:46 Freq: Status: Active Protocol: Document 03/07/20 16:33 [facility] (Rec: 03/07/20 16:38 [facility] [id number]) OP-PT Subjective Patient Comments Patient Comments Better tolerance to lymphedema wrap and states she practiced x 2 on her own as instructed. PT-OP-F Manual Assessment Start: 01/31/20 10:46 Freq: Status: Active Protocol: Document 02/03/20 10:27 [facility] (Rec: 02/03/20 17:25 [facility] [id number]) Manual Assessments Soft Tissue Assessment Soft Tissue Mobility Assessment no fibrosis right UE or chest Other Manual Assessments Other Manual Assessments palpable tightness bilateral upper traps right greater than left PT-OP-J Posture/Palpation/Skin Start: 01/31/20 10:46 Freq: Status: Active Protocol: Document 02/03/20 10:27 [facility] (Rec: 02/03/20 17:25 [facility] [id number]) Posture Evaluation Position Sitting Head/C-Spine Posture Forward Head T-Spine Posture Increased Kyphosis Shoulder Posture (L) Rounded,(R) Rounded Scapula Posture (L) Protracted,(R) Protracted PT-OP-K Range of Motion Start: 01/31/20 10:46 Freq: Status: Active Protocol: Document 02/10/20 10:46 [facility] (Rec: 02/10/20 10:48 [facility] [id number]) Shoulder Goniometric Range of Motion Shoulder Right Active Flexion 155 Abduction 145 PT-OP-N Lymphedema Start: 01/31/20 10:46 Freq: Status: Active Protocol: Document 03/07/20 16:33 [facility] (Rec: 03/07/20 16:41 [facility] [id number]) Lymphedema Measurements Upper Extremity Circumference Measurements Right Affected MCP 20.5 cm Wrist 18.1 cm 5 cm From Wrist Crease 20.2 cm 10 cm From Wrist Crease 24.5 cm 15 cm From Wrist Crease 29.4 cm 20 cm From Wrist Crease 32.1 cm 25 cm From Wrist Crease 32.3 cm 30 cm From Wrist Crease 40.1 cm 35 cm From Wrist Crease 47.1 cm 40 cm From Wrist Crease 51.4 cm 45 cm From Wrist Crease 55 cm Elbow Joint 63 cm PT-OP-Q Treatments Start: 01/31/20 10:46 Freq: Status: Active Protocol: Document 03/07/20 16:33 [facility] (Rec: 03/07/20 16:38 [facility] [id number]) Cardio Equipment Recumbent Stepper (Sci-Fit) Duration (Minutes) 10 Resistance 1 Seat Position 11 Other to facilitate lymphatic flow after wrapping Lymphedema Treatment Manual Lymphatic Drainage Location for right chest and right UE Duration 30 Lymphedema Wrapping Body Location right UE Materials 1 finger wraps, Tricofix size G, Artiflex, Comprilan Other done 2x due to thumb coming undone first time after exercise started Compression Garment Assessment Compression Garment Assessment Details recommended patient reschedule appointment for end of next week. Other Other use of video for instruction and discussion of self- wrapping and given information for watching video of self- massage. PT-OP-T Assessment and Plan Start: 01/31/20 10:46 Freq: Status: Active Protocol: Document 03/07/20 16:33 [facility] (Rec: 03/07/20 16:38 [facility] [id number]) Physical Therapy Assessment Other Concerns Barriers to Rehabilitation PMH: CRPS, depression, anxiety, back pain, dizziness, headaches, hernia, joint replacement, neck pain, SOB, bariatric surgery, sleep apnea . Goals Three Impairment decreased right UE ROM Short Term Goal (STG) Patient to be independent and compliant with HEP for purposes of ROM and edema reduction 03/02/20: good goal progress STG Duration 04/04/20 Usp Goal (LTG) Patient to demonstrate right UE ROM WNL to allow her to perform all usual activities including reaching overhead and donning/doffing her bra without difficulty 03/01/20: good goal progress LTG Duration 05/03/19 Two Impairment pain right UE, neck, and chest Usp Goal (LTG) Decrease pain by at least 50% to improve activity tolerance and quality of life. 03/01/20: some goal progress LTG Duration 05/03/19 One Impairment lymphedema right UE and chest wall Short Term Goal (STG) Decrease and stabilize lymphedema (no increase or decrease greater than 1 cm over the course of 1 week) 03/01/20: goal progress, though now that patient able to be wrapped, feel patient will make better progress. STG Duration 04/04/20 Consulting Sales Manager Goal (LTG) Patient to be independent with all aspects of self management for lymphedema to include self-MLD, sequential lymphedema exercises, be fit with appropriate compression garment(s) and demonstrate correct use 03/01/20: goal progress LTG Duration 05/03/20 Assessment Summary Assessment circumferential measurements decreased majority of arm until top measurement, needs further lymphatic clearing. Patient demonstrated good understanding of self-wrapping , especially after review of video done today. Feel she will be ready for measurement for compression sleeve in approximately 1 1/2 weeks Physical Therapy Plan Frequency and Duration Frequency of Treatment 20 visits Duration of Treatment 12 weeks Plan of Care Start Date 02/03/20 Plan of Care End Date 05/03/20 Therapeutic Interventions Therapeutic Interventions Home Exercise Program, Lymphedema Management,Manual Therapy,Patient/Caregiver Education,Self-Care/Home Management,Soft Tissue Mobilization,Taping, Therapeutic Activities, Therapeutic Exercises Next Visit Focus/Plan Next Note Type Treatment Note Next Visit Plan Circumferential measurements. Continue lymphedema management, pain management. Problem solve any issues with self-wrapping and self MLD.
--- NOTE | 2020-04-03 14:27 | PT.OTN ---
Current Diagnoses Complex regional pain syndrome I of upper limb, bilateral (04/03/20) Myalgia, unspecified site (04/03/20) Physical Therapy Treatment Note PT-OP-A Visit Information Start: 01/31/20 10:46 Freq: Status: Active Protocol: Document 04/03/20 14:18 [facility] (Rec: 04/03/20 14:27 [facility] [id number]) Out-Patient Physical Therapy Visit Information Visit Information Visit Type Treatment Note Visit Start Time 13:00 Visit Stop Time 14:15 Total Visit Minutes 75 Visit Number 13 Evaluation Information Evaluation Date 02/03/20 PT-OP-B Current Condition Start: 01/31/20 10:46 Freq: Status: Active Protocol: Document 02/03/20 10:26 [facility] (Rec: 02/03/20 10:53 [facility] [id number]) Current Condition History of Current Condition Onset Date 2007 Current Complaints bilateral UE pain History of Current Condition 2007 fractured both elbows after a fall at work landed in pushup position. Surgical intervention right radial head replacement. Has had PT multiple times since 2007. 2009 removal of radial head with use of muscle flap per patient. Reports persistent pain, development of CRPS, and gradual onset of swelling in right chest, right UE. Has had 4 nerve blocks with no pain-relieving benefit. Has seen crayon painter; was sent to PT for lymphatic massage, MFR and aquatic therapy; states she benefited from all. Most recently after moving went to [place] [facility]. Some benefit from trial spinal cord stimulator initially, second time stimulator inserted 2014 had bad reaction with some weakness. Now has moved to [place], now goes to [facility], sent to Dr. Berger in [place] who told patient the stimulator may have migrated and wasn't doing her any good. Most recently referred to [facility], physician stated stimulator put in wrong. Has more scar tissue and has refused another stimulator due to that experience. C/o hedaches, severe pain right UE . Has been put on Flexeril due to muscle spasms. Patient reports depression due to her disability, moving from [place], has leukemia, unable to see grandchildren or daughter in [place]. Other daughter across country in [place]. Caregiver for her . Also c/o lymphedema right subaxillary region, possibly related to RSD s/p elbow injury. Went to [facility], therapist told her she couldn' t do anything for her, then sent to DO, didn't have good experience. Prior Treatments and Tests PT, neuromuscular stimulator, medication. Prior Functional Status Baseline Function- ADL's Independent Baseline Function- Mobility Independent Baseline Function- Recreation/Hobbies no limitations Current Functional Impairments (Reported) Functional Limitations- ADL's painful Functional Limitations- Recreation/ painful Hobbies PT-OP-C Subjective Start: 01/31/20 10:46 Freq: Status: Active Protocol: Document 04/03/20 14:18 [facility] (Rec: 04/03/20 14:27 [facility] [id number]) OP-PT Subjective Patient Comments Patient Comments Patient reports she hasn't gotten a compression sleeve yet; waiting to see if insurance will pay. She will call back to [facility] today to see if found out yet. Has had difficulty with self-care due to depression, hasn't self- wrapped, has done some exercises. PT-OP-F Manual Assessment Start: 01/31/20 10:46 Freq: Status: Active Protocol: Document 02/03/20 10:27 [facility] (Rec: 02/03/20 17:25 [facility] [id number]) Manual Assessments Soft Tissue Assessment Soft Tissue Mobility Assessment no fibrosis right UE or chest Other Manual Assessments Other Manual Assessments palpable tightness bilateral upper traps right greater than left PT-OP-J Posture/Palpation/Skin Start: 01/31/20 10:46 Freq: Status: Active Protocol: Document 02/03/20 10:27 [facility] (Rec: 02/03/20 17:25 [facility] [id number]) Posture Evaluation Position Sitting Head/C-Spine Posture Forward Head T-Spine Posture Increased Kyphosis Shoulder Posture (L) Rounded,(R) Rounded Scapula Posture (L) Protracted,(R) Protracted PT-OP-K Range of Motion Start: 01/31/20 10:46 Freq: Status: Active Protocol: Document 02/10/20 10:46 [facility] (Rec: 02/10/20 10:48 [facility] [id number]) Shoulder Goniometric Range of Motion Shoulder Right Active Flexion 155 Abduction 145 PT-OP-N Lymphedema Start: 01/31/20 10:46 Freq: Status: Active Protocol: Document 04/03/20 14:18 [facility] (Rec: 04/03/20 14:27 [facility] [id number]) Lymphedema Measurements Upper Extremity Circumference Measurements Right Affected MCP 20.6 cm Dorsum of Hand 18.1 cm Wrist 20.4 cm 5 cm From Wrist Crease 25.2 cm 10 cm From Wrist Crease 30.6 cm 15 cm From Wrist Crease 32.8 cm 20 cm From Wrist Crease 32.8 cm 25 cm From Wrist Crease 39.8 cm 30 cm From Wrist Crease 46.9 cm 35 cm From Wrist Crease 51.5 cm 40 cm From Wrist Crease 54.5 cm 45 cm From Wrist Crease 62.7 cm PT-OP-Q Treatments Start: 01/31/20 10:46 Freq: Status: Active Protocol: Document 04/03/20 14:18 [facility] (Rec: 04/03/20 14:27 [facility] [id number]) Therapeutic Exercises Sidelying Exercises shoulder abduction Reps/Minutes 5x Comments end range stretch open book Reps/Minutes 5x Comments cues for no movement below waist to increase stretch Manual Therapy Treatment Taping 1 Body Location right UE Treatment Focus edema reduction Type of Tape Kinesio Tape Skin Inspection intact Comments Patient did not bring lymphedema wraps so kinesiotape used as well. Self-Care/Home Management Treatment Education Other Education do lymphedema wrapping especially if doing physically demanding activities. Lymphedema Treatment Manual Lymphatic Drainage Location for right chest and right UE Duration 30 Compression Garment Assessment Compression Garment Assessment Details patient to call [facility] again PT-OP-T Assessment and Plan Start: 01/31/20 10:46 Freq: Status: Active Protocol: Document 04/03/20 14:18 [facility] (Rec: 04/03/20 14:27 [facility] [id number]) Physical Therapy Assessment Other Concerns Barriers to Rehabilitation PMH: CRPS, depression, anxiety, back pain, dizziness, headaches, hernia, joint replacement, neck pain, SOB, bariatric surgery, sleep apnea . Goals Three Impairment decreased right UE ROM Short Term Goal (STG) Patient to be independent and compliant with HEP for purposes of ROM and edema reduction 03/02/20: good goal progress STG Duration 04/04/20 Halfway Goal (LTG) Patient to demonstrate right UE ROM WNL to allow her to perform all usual activities including reaching overhead and donning/doffing her bra without difficulty 03/01/20: good goal progress LTG Duration 05/03/19 Two Impairment pain right UE, neck, and chest Water Treatment Plant Engineer Goal (LTG) Decrease pain by at least 50% to improve activity tolerance and quality of life. 03/01/20: some goal progress LTG Duration 05/03/19 One Impairment lymphedema right UE and chest wall Short Term Goal (STG) Decrease and stabilize lymphedema (no increase or decrease greater than 1 cm over the course of 1 week) 03/01/20: goal progress, though now that patient able to be wrapped, feel patient will make better progress. STG Duration 04/04/20 Water Treatment Plant Engineer Goal (LTG) Patient to be independent with all aspects of self management for lymphedema to include self-MLD, sequential lymphedema exercises, be fit with appropriate compression garment(s) and demonstrate correct use 03/01/20: goal progress LTG Duration 05/03/20 Assessment Summary Assessment measurements stable today, patient reports minimal physical activity today; with increased activity has increased pain and swelling. Depression affecting self-care . Patient seeing counselor and working with crayon painter. Did not bring lymphedema wraps so kinesiotape was used. Physical Therapy Plan Frequency and Duration Frequency of Treatment 20 visits Duration of Treatment 12 weeks Plan of Care Start Date 02/03/20 Plan of Care End Date 05/03/20 Therapeutic Interventions Therapeutic Interventions Home Exercise Program, Lymphedema Management,Manual Therapy,Patient/Caregiver Education,Self-Care/Home Management,Soft Tissue Mobilization,Taping, Therapeutic Activities, Therapeutic Exercises
--- NOTE | 2020-04-10 10:02 | PT-OP ANOTE ---
Cancelled due to not feeling well
--- NOTE | 2020-04-17 14:01 | PT-OP ANOTE ---
cancelled due to vomiting last night
--- NOTE | 2020-05-02 16:33 | PT.OTRE ---
Current Diagnoses Complex regional pain syndrome I of upper limb, bilateral (05/02/20) Myalgia, unspecified site (05/02/20) Visit Care Team Role Provider Type Gaby Hopson MD Family Provider Non-Staff Primary Care Provider Specialty: Internal Medicine Address: [facility], [address], [place], [address] Email: Cristóbal Webster LAC Attending Provider Non-Staff Referring Provider Specialty: Anesthesia/Pain Management Address: [address] [place] [address], [id number] Email: Physical Therapy Re-Evaluation PT-OP-A Visit Information Start: 01/31/20 10:46 Freq: Status: Active Protocol: Document 05/02/20 14:30 SAK (Rec: 05/02/20 14:49 SAK [id number]) Out-Patient Physical Therapy Visit Information Visit Information Visit Type Treatment Note Visit Start Time 14:34 Visit Stop Time 15:59 Total Visit Minutes 85 Visit Number 14 Evaluation Information Evaluation Date 02/03/20 Precautions Precautions depression PT-OP-B Current Condition Start: 01/31/20 10:46 Freq: Status: Active Protocol: Document 02/03/20 10:26 SAK (Rec: 02/03/20 10:53 SAK [id number]) Current Condition History of Current Condition Onset Date 2007 Current Complaints bilateral UE pain History of Current Condition 2007 fractured both elbows after a fall at work landed in pushup position. Surgical intervention right radial head replacement. Has had PT multiple times since 2007. 2009 removal of radial head with use of muscle flap per patient. Reports persistent pain, development of CRPS, and gradual onset of swelling in right chest, right UE. Has had 4 nerve blocks with no pain-relieving benefit. Has seen oil painter; was sent to PT for lymphatic massage, MFR and aquatic therapy; states she benefited from all. Most recently after moving went to [place] [facility]. Some benefit from trial spinal cord stimulator initially, second time stimulator inserted 2014 had bad reaction with some weakness. Now has moved to [place], now goes to [facility], sent to Dr. Berger in [place] who told patient the stimulator may have migrated and wasn't doing her any good. Most recently referred to [facility], physician stated stimulator put in wrong. Has more scar tissue and has refused another stimulator due to that experience. C/o hedaches, severe pain right UE . Has been put on Flexeril due to muscle spasms. Patient reports depression due to her disability, moving from [place], has leukemia, unable to see grandchildren or daughter in [place]. Other daughter across country in [place]. Caregiver for her . Also c/o lymphedema right subaxillary region, possibly related to RSD s/p elbow injury. Went to [facility], therapist told her she couldn' t do anything for her, then sent to DO, didn't have good experience. Prior Treatments and Tests PT, neuromuscular stimulator, medication. Prior Functional Status Baseline Function- ADL's Independent Baseline Function- Mobility Independent Baseline Function- Recreation/Hobbies no limitations Current Functional Impairments (Reported) Functional Limitations- ADL's painful Functional Limitations- Recreation/ painful Hobbies PT-OP-C Subjective Start: 01/31/20 10:46 Freq: Status: Active Protocol: Document 05/02/20 14:30 [facility] (Rec: 05/02/20 14:49 [facility] [id number]) OP-PT Subjective Patient Comments Patient Comments Patient reports she has been having lots of headaches, tightness right neck and shoulder; states has had pain ever since spinal cord stimulator inserted and removed years ago. Pain has been worse recently Had to cancel PT 2x due to cough. Saw oil painter this am, states prior injections helpful for neck and shoulder pain, may be scheduling more. No compression sleeve yet as [facility] hasn't gotten back to her, receptive to infomration about more local fitter ( [facility]). Feels most limited by pain in head, neck, and shoulder. States her depression has been bad over the holidays, just had tele- appointment with counselor today. Due to depression very poor compiance to HEP and lymphedema management (since last seen states she has probably only exercised or wrapped 3x). Patient Questionnaires Neck Disability Index NDI Score 68 PT-OP-F Manual Assessment Start: 01/31/20 10:46 Freq: Status: Active Protocol: Document 02/03/20 10:27 SAK (Rec: 02/03/20 17:25 [facility] [id number]) Manual Assessments Soft Tissue Assessment Soft Tissue Mobility Assessment no fibrosis right UE or chest Other Manual Assessments Other Manual Assessments palpable tightness bilateral upper traps right greater than left PT-OP-J Posture/Palpation/Skin Start: 01/31/20 10:46 Freq: Status: Active Protocol: Document 02/03/20 10:27 SAK (Rec: 02/03/20 17:25 [facility] [id number]) Posture Evaluation Position Sitting Head/C-Spine Posture Forward Head T-Spine Posture Increased Kyphosis Shoulder Posture (L) Rounded,(R) Rounded Scapula Posture (L) Protracted,(R) Protracted PT-OP-K Range of Motion Start: 01/31/20 10:46 Freq: Status: Active Protocol: Document 02/10/20 10:46 SAK (Rec: 02/10/20 10:48 [facility] [id number]) Shoulder Goniometric Range of Motion Shoulder Measured in Degrees Right Active Flexion 155 Abduction 145 PT-OP-N Lymphedema Start: 01/31/20 10:46 Freq: Status: Active Protocol: Document 04/03/20 14:18 [facility] (Rec: 04/03/20 14:27 [facility] [id number]) Lymphedema Measurements Upper Extremity Circumference Measurements Right Affected MCP 20.6 cm Dorsum of Hand 18.1 cm Wrist 20.4 cm 5 cm From Wrist Crease 25.2 cm 10 cm From Wrist Crease 30.6 cm 15 cm From Wrist Crease 32.8 cm 20 cm From Wrist Crease 32.8 cm 25 cm From Wrist Crease 39.8 cm 30 cm From Wrist Crease 46.9 cm 35 cm From Wrist Crease 51.5 cm 40 cm From Wrist Crease 54.5 cm 45 cm From Wrist Crease 62.7 cm PT-OP-Q Treatments Start: 01/31/20 10:46 Freq: Status: Active Protocol: Document 05/02/20 14:30 [facility] (Rec: 05/02/20 14:49 [facility] [id number]) Manual Therapy Treatment Soft Tissue Mobilization UT, c/s, periscapular Mobilization Type Myofascial Release,Rolling, Strumming,Sustained Pressure Body Position Hooklying Comments also sidelying Self-Care/Home Management Treatment Education Other Education importance of self-care to include ther ex and lymphedema management Lymphedema Treatment Lymphedema Wrapping Body Location right UE Materials 1 finger wraps, Tricofix size G, Artiflex, Comprilan (4 rolls: 6,8,8,10) Compression Garment Assessment Compression Garment Assessment Details Has not heard back from [facility] . Given information for [facility] PT-OP-T Assessment and Plan Start: 01/31/20 10:46 Freq: Status: Active Protocol: Document 05/02/20 14:30 [facility] (Rec: 05/02/20 14:49 [facility] [id number]) Physical Therapy Assessment Other Concerns Barriers to Rehabilitation PMH: CRPS, depression, anxiety, back pain, dizziness, headaches, hernia, joint replacement, neck pain, SOB, bariatric surgery, sleep apnea . Goals Three Impairment decreased right UE ROM Short Term Goal (STG) Patient to be independent and compliant with HEP for purposes of shoulder ROM and edema reduction 03/02/20: good goal progress 05/02/19: poor compliance due to depression STG Duration 06/16/20 Long-Term Goal (LTG) Patient to demonstrate right UE ROM WNL to allow her to perform all usual activities including reaching overhead and donning/doffing her bra without difficulty 03/01/20: good goal progress 05/02/20: decrease in ROM due to poor compliance to HEP, pain LTG Duration 07/31/20 Two Impairment pain right UE, neck, and chest Long-Term Goal (LTG) Decrease pain by at least 50% to improve activity tolerance and quality of life. 03/01/20: some goal progress 05/02/20: pain has increased recently especially with increase in headaches, pain neck and shoulder LTG Duration 07/31/20 One Impairment lymphedema right UE and chest wall Short Term Goal (STG) Decrease and stabilize lymphedema (no increase or decrease greater than 1 cm over the course of 1 week) 03/01/20: goal progress, though now that patient able to be wrapped, feel patient will make better progress. 05/02/20: poor compliance to self-wrapping, has not obtained compression garment yet. STG Duration 04/04/20 Long-Term Goal (LTG) Patient to be independent with all aspects of self management for lymphedema to include self-MLD, sequential lymphedema exercises, be fit with appropriate compression garment(s) and demonstrate correct use 03/01/20: goal progress 05/02/20: poor compliance due to depression LTG Duration 05/03/20 Assessment Summary Assessment Increase in circumferential measurements upper arm right UE. Patient biggest c/o today is increase in pain with function-limiting headaches and pain in upper trap and periscapular region; moderate tightness palpable right upper traps with moderate elevation of right shoulder evident. Recommend continued PT for pain management and lymphedema management to help this patient achieve her goals and return to a more active lifestyle. Progress highly impacted by patient depression . Physical Therapy Plan Frequency and Duration Frequency of Treatment 20 visits Duration of Treatment 12 weeks Plan of Care Start Date 05/02/20 Plan of Care End Date 07/31/20 Therapeutic Interventions Therapeutic Interventions Home Exercise Program, Lymphedema Management,Manual Therapy,Patient/Caregiver Education,Self-Care/Home Management,Soft Tissue Mobilization,Taping, Therapeutic Activities, Therapeutic Exercises
--- NOTE | 2020-05-02 16:33 | PT.OPPOC ---
Physical, Occupational & Speech Therapy At [facility] Current Diagnoses Complex regional pain syndrome I of upper limb, bilateral (05/02/20) Myalgia, unspecified site (05/02/20) Visit Care Team Role Provider Type Gaby Hopson MD Family Provider Non-Staff Primary Care Provider Specialty: Internal Medicine Address: [address], [address], [place], [address] Email: Cristóbal Webster LAC Attending Provider Non-Staff Referring Provider Specialty: Anesthesia/Pain Management Address: [address] [place] [address], [id number] Email: Plan Of Care PT-OP-T Assessment and Plan Start: 01/31/20 10:46 Freq: Status: Active Protocol: Document 05/02/20 14:30 SAK (Rec: 05/02/20 14:49 SAK [id number]) Physical Therapy Assessment Other Concerns Barriers to Rehabilitation PMH: CRPS, depression, anxiety, back pain, dizziness, headaches, hernia, joint replacement, neck pain, SOB, bariatric surgery, sleep apnea . Goals Three Impairment decreased right UE ROM Short Term Goal (STG) Patient to be independent and compliant with HEP for purposes of shoulder ROM and edema reduction 03/02/20: good goal progress 05/02/19: poor compliance due to depression STG Duration 06/16/20 Shelter Goal (LTG) Patient to demonstrate right UE ROM WNL to allow her to perform all usual activities including reaching overhead and donning/doffing her bra without difficulty 03/01/20: good goal progress 05/02/20: decrease in ROM due to poor compliance to HEP, pain LTG Duration 07/31/20 Two Impairment pain right UE, neck, and chest Shelter Goal (LTG) Decrease pain by at least 50% to improve activity tolerance and quality of life. 03/01/20: some goal progress 05/02/20: pain has increased recently especially with increase in headaches, pain neck and shoulder LTG Duration 07/31/20 One Impairment lymphedema right UE and chest wall Short Term Goal (STG) Decrease and stabilize lymphedema (no increase or decrease greater than 1 cm over the course of 1 week) 03/01/20: goal progress, though now that patient able to be wrapped, feel patient will make better progress. 05/02/20: poor compliance to self-wrapping, has not obtained compression garment yet. STG Duration 04/04/20 Shelter Goal (LTG) Patient to be independent with all aspects of self management for lymphedema to include self-MLD, sequential lymphedema exercises, be fit with appropriate compression garment(s) and demonstrate correct use 03/01/20: goal progress 05/02/20: poor compliance due to depression LTG Duration 05/03/20 Assessment Summary Assessment Increase in circumferential measurements upper arm right UE. Patient biggest c/o today is increase in pain with function-limiting headaches and pain in upper trap and periscapular region; moderate tightness palpable right upper traps with moderate elevation of right shoulder evident. Recommend continued PT for pain management and lymphedema management to help this patient achieve her goals and return to a more active lifestyle. Progress highly impacted by patient depression . Physical Therapy Plan Frequency and Duration Frequency of Treatment 20 visits Duration of Treatment 12 weeks Plan of Care Start Date 05/02/20 Plan of Care End Date 07/31/20 Therapeutic Interventions Therapeutic Interventions Home Exercise Program, Lymphedema Management,Manual Therapy,Patient/Caregiver Education,Self-Care/Home Management,Soft Tissue Mobilization,Taping, Therapeutic Activities, Therapeutic Exercises Plan of Care Dates Plan of Care Start Date 05/02/20 Plan of Care End Date 07/31/20 Electronically Signed by: Jena Schulz, PT 05/02/20 [id number] Please Sign and Return: I have reviewed this Plan of Care and certify that the skilled therapy services above are required to meet the patient?s needs. Physician Signature Date Printed Name and Credentials Clinical Instructor Signature Printed Name and Credentials
--- NOTE | 2020-05-23 15:56 | PT.OTN ---
Current Diagnoses Complex regional pain syndrome I of upper limb, bilateral (05/23/20) Myalgia, unspecified site (05/23/20) Physical Therapy Treatment Note PT-OP-A Visit Information Start: 01/31/20 10:46 Freq: Status: Active Protocol: Document 05/23/20 15:49 AW (Rec: 05/23/20 15:56 AW [id number]) Out-Patient Physical Therapy Visit Information Visit Information Visit Type Treatment Note Visit Start Time 14:30 Visit Stop Time 15:47 Total Visit Minutes 77 Visit Number 15 Evaluation Information Evaluation Date 02/03/20 PT-OP-B Current Condition Start: 01/31/20 10:46 Freq: Status: Active Protocol: Document 02/03/20 10:26 SAK (Rec: 02/03/20 10:53 SAK [id number]) Current Condition History of Current Condition Onset Date 2007 Current Complaints bilateral UE pain History of Current Condition 2007 fractured both elbows after a fall at work landed in pushup position. Surgical intervention right radial head replacement. Has had PT multiple times since 2007. 2009 removal of radial head with use of muscle flap per patient. Reports persistent pain, development of CRPS, and gradual onset of swelling in right chest, right UE. Has had 4 nerve blocks with no pain-relieving benefit. Has seen paint mixer hand; was sent to PT for lymphatic massage, MFR and aquatic therapy; states she benefited from all. Most recently after moving went to [place] [facility]. Some benefit from trial spinal cord stimulator initially, second time stimulator inserted 2013 had bad reaction with some weakness. Now has moved to [place], now goes to [facility], sent to Dr. Berger in [place] who told patient the stimulator may have migrated and wasn't doing her any good. Most recently referred to [facility], physician stated stimulator put in wrong. Has more scar tissue and has refused another stimulator due to that experience. C/o hedaches, severe pain right UE . Has been put on Flexeril due to muscle spasms. Patient reports depression due to her disability, moving from [place], has leukemia, unable to see grandchildren or daughter in [place]. Other daughter across country in [place]. Caregiver for her . Also c/o lymphedema right subaxillary region, possibly related to RSD s/p elbow injury. Went to [facility], therapist told her she couldn' t do anything for her, then sent to DO, didn't have good experience. Prior Treatments and Tests PT, neuromuscular stimulator, medication. Prior Functional Status Baseline Function- ADL's Independent Baseline Function- Mobility Independent Baseline Function- Recreation/Hobbies no limitations Current Functional Impairments (Reported) Functional Limitations- ADL's painful Functional Limitations- Recreation/ painful Hobbies PT-OP-C Subjective Start: 01/31/20 10:46 Freq: Status: Active Protocol: Document 05/23/20 15:49 AW (Rec: 05/23/20 15:56 AW [id number]) OP-PT Subjective Patient Comments Patient Comments Pt has missed multiple appointments due to personal crises and ongoing depression. She is willing to re-commit to treatment at this point and hopes to schedule more appointments. PT-OP-F Manual Assessment Start: 01/31/20 10:46 Freq: Status: Active Protocol: Document 02/03/20 10:27 SAK (Rec: 02/03/20 17:25 SAK [id number]) Manual Assessments Soft Tissue Assessment Soft Tissue Mobility Assessment no fibrosis right UE or chest Other Manual Assessments Other Manual Assessments palpable tightness bilateral upper traps right greater than left PT-OP-J Posture/Palpation/Skin Start: 01/31/20 10:46 Freq: Status: Active Protocol: Document 02/03/20 10:27 SAK (Rec: 02/03/20 17:25 SAK [id number]) Posture Evaluation Position Sitting Head/C-Spine Posture Forward Head T-Spine Posture Increased Kyphosis Shoulder Posture (L) Rounded,(R) Rounded Scapula Posture (L) Protracted,(R) Protracted PT-OP-K Range of Motion Start: 01/31/20 10:46 Freq: Status: Active Protocol: Document 02/10/20 10:46 SAK (Rec: 02/10/20 10:48 SAK [id number]) Shoulder Goniometric Range of Motion Shoulder Right Active Flexion 155 Abduction 145 PT-OP-N Lymphedema Start: 01/31/20 10:46 Freq: Status: Active Protocol: Document 04/03/20 14:18 SAK (Rec: 04/03/20 14:27 SAK [id number]) Lymphedema Measurements Upper Extremity Circumference Measurements Right Affected MCP 20.6 cm Dorsum of Hand 18.1 cm Wrist 20.4 cm 5 cm From Wrist Crease 25.2 cm 10 cm From Wrist Crease 30.6 cm 15 cm From Wrist Crease 32.8 cm 20 cm From Wrist Crease 32.8 cm 25 cm From Wrist Crease 39.8 cm 30 cm From Wrist Crease 46.9 cm 35 cm From Wrist Crease 51.5 cm 40 cm From Wrist Crease 54.5 cm 45 cm From Wrist Crease 62.7 cm PT-OP-Q Treatments Start: 01/31/20 10:46 Freq: Status: Active Protocol: Document 05/23/20 15:49 AW (Rec: 05/23/20 15:56 AW [id number]) Manual Therapy Treatment Soft Tissue Mobilization UT, c/s, periscapular Mobilization Type Myofascial Release,Rolling, Strumming,Sustained Pressure Body Position Hooklying Self-Care/Home Management Treatment Education Other Education Re-introduced the idea of contacting [facility] for compression garments even if only making initial contact to be ready for eventual fitting . Lymphedema Treatment Manual Lymphatic Drainage Location RUE Duration 30 Lymphedema Wrapping Body Location right UE Materials 1 finger wraps, Tricofix size G, Artiflex, Comprilan (4 rolls: 6,8,8,10) Sequential Lymphedema Exercises Location right UE Duration 5 min Comments supine and sitting PT-OP-T Assessment and Plan Start: 01/31/20 10:46 Freq: Status: Active Protocol: Document 05/23/20 15:49 AW (Rec: 05/23/20 15:56 AW [id number]) Physical Therapy Assessment Goals Three Impairment decreased right UE ROM Short Term Goal (STG) Patient to be independent and compliant with HEP for purposes of shoulder ROM and edema reduction 03/02/20: good goal progress 05/02/19: poor compliance due to depression STG Duration 06/16/20 [facility] Goal (LTG) Patient to demonstrate right UE ROM WNL to allow her to perform all usual activities including reaching overhead and donning/doffing her bra without difficulty 03/01/20: good goal progress 05/02/20: decrease in ROM due to poor compliance to HEP, pain LTG Duration 07/31/20 Two Impairment pain right UE, neck, and chest [facility] Goal (LTG) Decrease pain by at least 50% to improve activity tolerance and quality of life. 03/01/20: some goal progress 05/02/20: pain has increased recently especially with increase in headaches, pain neck and shoulder LTG Duration 07/31/20 One Impairment lymphedema right UE and chest wall Short Term Goal (STG) Decrease and stabilize lymphedema (no increase or decrease greater than 1 cm over the course of 1 week) 03/01/20: goal progress, though now that patient able to be wrapped, feel patient will make better progress. 05/02/20: poor compliance to self-wrapping, has not obtained compression garment yet. STG Duration 04/04/20 [facility] Goal (LTG) Patient to be independent with all aspects of self management for lymphedema to include self-MLD, sequential lymphedema exercises, be fit with appropriate compression garment(s) and demonstrate correct use 03/01/20: goal progress 05/02/20: poor compliance due to depression LTG Duration 05/03/20 Assessment Summary Assessment Decrease in all circumferential measurement RUE. Patient has not been compliant with self-wrapping by her own admission but is willing to re-commit at this time for continued treatment. Physical Therapy Plan Frequency and Duration Frequency of Treatment 20 visits Duration of Treatment 12 weeks Plan of Care Start Date 05/02/20 Plan of Care End Date 07/31/20
--- NOTE | 2020-05-30 17:25 | PT.OTN ---
Current Diagnoses Complex regional pain syndrome I of upper limb, bilateral (05/30/20) Myalgia, unspecified site (05/30/20) Physical Therapy Treatment Note PT-OP-A Visit Information Start: 01/31/20 10:46 Freq: Status: Active Protocol: Document 05/30/20 10:27 SAK (Rec: 05/30/20 10:54 [facility] [id number]) Out-Patient Physical Therapy Visit Information Visit Information Visit Type Treatment Note Visit Start Time 10:34 Visit Stop Time 12:00 Total Visit Minutes 86 Visit Number 16 Evaluation Information Evaluation Date 02/03/20 Precautions Precautions depression PT-OP-B Current Condition Start: 01/31/20 10:46 Freq: Status: Active Protocol: Document 05/30/20 10:27 SAK (Rec: 05/30/20 10:54 [facility] [id number]) Current Condition History of Current Condition Onset Date 2007 Current Complaints bilateral UE pain History of Current Condition 2007 fractured both elbows after a fall at work landed in pushup position. Surgical intervention right radial head replacement. Has had PT multiple times since 2007. 2009 removal of radial head with use of muscle flap per patient. Reports persistent pain, development of CRPS, and gradual onset of swelling in right chest, right UE. Has had 4 nerve blocks with no pain-relieving benefit. Has seen painter tumbling barrel; was sent to PT for lymphatic massage, MFR and aquatic therapy; states she benefited from all. Most recently after moving went to [place] [facility]. Some benefit from trial spinal cord stimulator initially, second time stimulator inserted 2014 had bad reaction with some weakness. [place] now goes to [facility], sent to Dr. Berger in [place] who told patient the stimulator may have migrated and wasn't doing her any good. Most recently referred to [facility], physician stated stimulator put in wrong. Has more scar tissue and has refused another stimulator due to that experience. C/o hedaches, severe pain right UE . Has been put on Flexeril due to muscle spasms. Patient reports depression due to her disability, moving from [place], has leukemia, unable to see grandchildren or daughter in [place]. Other daughter across country in [place]. Caregiver for her . Also c/o lymphedema right subaxillary region, possibly related to RSD s/p elbow injury. Went to [facility], therapist told her she couldn' t do anything for her, then sent to DO, didn't have good experience. Prior Treatments and Tests PT, neuromuscular stimulator, medication. PT-OP-C Subjective Start: 01/31/20 10:46 Freq: Status: Active Protocol: Document 05/30/20 10:27 SAK (Rec: 05/30/20 10:54 [facility] [id number]) OP-PT Subjective Patient Comments Patient Comments Reports her brother was in hospital ICU in [place] with Covid and last week. Cat wass very ill and had to be put down. Depression remains challenging for her and . States her arm has really been hurting, wasn't able to tolerate wrapping last time; states her hand was turning purple on her way home and she had to remove it. States likely due to stress has increase in neck and shoulder pain as well as headaches. PT-OP-F Manual Assessment Start: 01/31/20 10:46 Freq: Status: Active Protocol: Document 02/03/20 10:27 [facility] (Rec: 02/03/20 17:25 [facility] [id number]) Manual Assessments Soft Tissue Assessment Soft Tissue Mobility Assessment no fibrosis right UE or chest Other Manual Assessments Other Manual Assessments palpable tightness bilateral upper traps right greater than left PT-OP-J Posture/Palpation/Skin Start: 01/31/20 10:46 Freq: Status: Active Protocol: Document 02/03/20 10:27 [facility] (Rec: 02/03/20 17:25 [facility] [id number]) Posture Evaluation Position Sitting Head/C-Spine Posture Forward Head T-Spine Posture Increased Kyphosis Shoulder Posture (L) Rounded,(R) Rounded Scapula Posture (L) Protracted,(R) Protracted PT-OP-K Range of Motion Start: 01/31/20 10:46 Freq: Status: Active Protocol: Document 02/10/20 10:46 SAK (Rec: 02/10/20 10:48 SAK [id number]) Shoulder Goniometric Range of Motion Shoulder Right Active Flexion 155 Abduction 145 PT-OP-N Lymphedema Start: 01/31/20 10:46 Freq: Status: Active Protocol: Document 05/30/20 10:27 SAK (Rec: 05/30/20 10:54 [facility] [id number]) Lymphedema Measurements Upper Extremity Circumference Measurements Right Affected MCP 20.5 cm Dorsum of Hand 21.4 cm Wrist 17.9 cm 5 cm From Wrist Crease 21.2 cm 10 cm From Wrist Crease 25.7 cm 15 cm From Wrist Crease 30.3 cm 20 cm From Wrist Crease 32.6 cm 25 cm From Wrist Crease 36.8 cm 30 cm From Wrist Crease 45.8 cm 35 cm From Wrist Crease 50.8 cm 40 cm From Wrist Crease 54.1 cm 45 cm From Wrist Crease 55.3 cm PT-OP-Q Treatments Start: 01/31/20 10:46 Freq: Status: Active Protocol: Document 05/30/20 10:27 SAK (Rec: 05/30/20 17:25 SAK [id number]) Manual Therapy Treatment Soft Tissue Mobilization UT, c/s, periscapular Body Location right UE Mobilization Type Myofascial Release,Rolling, Strumming Body Position Hooklying Comments right forearm extensors also Lymphedema Treatment Manual Lymphatic Drainage Location RUE Duration 30 Lymphedema Wrapping Body Location right UE Materials 1 finger wraps, Tricofix size G, Artiflex, Comprilan (4 rolls: 6,8,8,10) Patient Education Compression Garments make appointment for measurement, fitting with compression sleeve PT-OP-T Assessment and Plan Start: 01/31/20 10:46 Freq: Status: Active Protocol: Document 05/23/20 15:49 AW (Rec: 05/23/20 15:56 AW [email or web address]) Physical Therapy Assessment Goals Three Impairment decreased right UE ROM Short Term Goal (STG) Patient to be independent and compliant with HEP for purposes of shoulder ROM and edema reduction 03/02/20: good goal progress 05/02/19: poor compliance due to depression STG Duration 06/16/20 [place] Goal (LTG) Patient to demonstrate right UE ROM WNL to allow her to perform all usual activities including reaching overhead and donning/doffing her bra without difficulty 03/01/20: good goal progress 05/02/20: decrease in ROM due to poor compliance to HEP, pain LTG Duration 07/31/20 Two Impairment pain right UE, neck, and chest Half-Way Goal (LTG) Decrease pain by at least 50% to improve activity tolerance and quality of life. 03/01/20: some goal progress 05/02/20: pain has increased recently especially with increase in headaches, pain neck and shoulder LTG Duration 07/31/20 One Impairment lymphedema right UE and chest wall Short Term Goal (STG) Decrease and stabilize lymphedema (no increase or decrease greater than 1 cm over the course of 1 week) 03/01/20: goal progress, though now that patient able to be wrapped, feel patient will make better progress. 05/02/20: poor compliance to self-wrapping, has not obtained compression garment yet. STG Duration 04/04/20 Half-Way Goal (LTG) Patient to be independent with all aspects of self management for lymphedema to include self-MLD, sequential lymphedema exercises, be fit with appropriate compression garment(s) and demonstrate correct use 03/01/20: goal progress 05/02/20: poor compliance due to depression LTG Duration 05/03/20 Assessment Summary Assessment Decrease in all circumferential measurement RUE. Patient has not been compliant with self-wrapping by her own admission but is willing to re-commit at this time for continued treatment. Physical Therapy Plan Frequency and Duration Frequency of Treatment 20 visits Duration of Treatment 12 weeks Plan of Care Start Date 05/02/20 Plan of Care End Date 07/31/20
--- NOTE | 2020-06-13 15:59 | PT.OTN ---
Current Diagnoses Complex regional pain syndrome I of upper limb, bilateral (06/13/20) Myalgia, unspecified site (06/13/20) Physical Therapy Treatment Note PT-OP-A Visit Information Start: 01/31/20 10:46 Freq: Status: Active Protocol: Document 06/13/20 15:42 AW (Rec: 06/13/20 15:59 AW [email or web address]) Out-Patient Physical Therapy Visit Information Visit Information Visit Type Treatment Note Visit Start Time 14:29 Visit Stop Time 15:40 Total Visit Minutes 71 Visit Number 17 Evaluation Information Evaluation Date 02/03/20 PT-OP-B Current Condition Start: 01/31/20 10:46 Freq: Status: Active Protocol: Document 05/30/20 10:27 SAK (Rec: 05/30/20 10:54 SAK [id number]) Current Condition History of Current Condition Onset Date 2007 Current Complaints bilateral UE pain History of Current Condition 2007 fractured both elbows after a fall at work landed in pushup position. Surgical intervention right radial head replacement. Has had PT multiple times since 2007. 2009 removal of radial head with use of muscle flap per patient. Reports persistent pain, development of CRPS, and gradual onset of swelling in right chest, right UE. Has had 4 nerve blocks with no pain-relieving benefit. 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 Most recently after moving went to [place] [facility]. Some benefit from trial spinal cord stimulator initially, second time stimulator inserted 2013 had bad reaction with some weakness. Now has moved to [place], now goes to [facility], sent to Dr. Berger in [place] who told patient the stimulator may have migrated and wasn't doing her any good. Most recently referred to [facility], physician stated stimulator put in wrong. Has more scar tissue and has refused another stimulator due to that experience. C/o hedaches, severe pain right UE . Has been put on Flexeril due to muscle spasms. Patient reports depression due to her disability, moving from [place], has leukemia, unable to see grandchildren or daughter in [place]. Other daughter across country in [place]. Caregiver for her . Also c/o lymphedema right subaxillary region, possibly related to RSD s/p elbow injury. Went to [facility], therapist told her she couldn' t do anything for her, then sent to DO, didn't have good experience. Prior Treatments and Tests PT, neuromuscular stimulator, medication. PT-OP-C Subjective Start: 01/31/20 10:46 Freq: Status: Active Protocol: Document 06/13/20 15:42 AW (Rec: 06/13/20 15:59 AW [email or web address]) OP-PT Subjective Patient Comments Patient Comments Pt is in good spirits, chatty and happy to come to therapy today PT-OP-F Manual Assessment Start: 01/31/20 10:46 Freq: Status: Active Protocol: Document 02/03/20 10:27 SAK (Rec: 02/03/20 17:25 SAK [id number]) Manual Assessments Soft Tissue Assessment Soft Tissue Mobility Assessment no fibrosis right UE or chest Other Manual Assessments Other Manual Assessments palpable tightness bilateral upper traps right greater than left PT-OP-J Posture/Palpation/Skin Start: 01/31/20 10:46 Freq: Status: Active Protocol: Document 02/03/20 10:27 SAK (Rec: 02/03/20 17:25 SAK [id number]) Posture Evaluation Position Sitting Head/C-Spine Posture Forward Head T-Spine Posture Increased Kyphosis Shoulder Posture (L) Rounded,(R) Rounded Scapula Posture (L) Protracted,(R) Protracted PT-OP-K Range of Motion Start: 01/31/20 10:46 Freq: Status: Active Protocol: Document 02/10/20 10:46 SAK (Rec: 02/10/20 10:48 SAK [id number]) Shoulder Goniometric Range of Motion Shoulder Right Active Flexion 155 Abduction 145 PT-OP-N Lymphedema Start: 01/31/20 10:46 Freq: Status: Active Protocol: Document 06/13/20 15:42 AW (Rec: 06/13/20 15:59 AW [email or web address]) Lymphedema Measurements Upper Extremity Circumference Measurements Right Affected MCP 20.6 cm Wrist 18.5 cm 5 cm From Wrist Crease 21.4 cm 10 cm From Wrist Crease 26.3 cm 15 cm From Wrist Crease 30.1 cm 20 cm From Wrist Crease 32.2 cm 25 cm From Wrist Crease 32.6 cm 30 cm From Wrist Crease 41.3 cm 35 cm From Wrist Crease 49.3 cm 40 cm From Wrist Crease 53.7 cm 45 cm From Wrist Crease 55.9 cm PT-OP-Q Treatments Start: 01/31/20 10:46 Freq: Status: Active Protocol: Document 06/13/20 15:42 AW (Rec: 06/13/20 15:59 AW [email or web address]) Manual Therapy Treatment Soft Tissue Mobilization UT, c/s, periscapular Body Location right UE Mobilization Type Myofascial Release,Rolling, Strumming Body Position Hooklying Self-Care/Home Management Treatment Education Other Education Reinforced to follow up with [facility] rep. Pt states she received a call back but did not connect live. Encouraged pt to call back if she hasn't heard from the rep by tomorrow . Lymphedema Treatment Manual Lymphatic Drainage Location RUE Duration 30 Lymphedema Wrapping Body Location right UE Materials 1 finger wraps, Tricofix size G, Artiflex, Comprilan (4 rolls: 6,8,8,10) Sequential Lymphedema Exercises Location right UE Duration 5 min Comments supine and sitting PT-OP-T Assessment and Plan Start: 01/31/20 10:46 Freq: Status: Active Protocol: Document 06/13/20 15:42 AW (Rec: 06/13/20 15:59 AW [email or web address]) Physical Therapy Assessment Goals Three Impairment decreased right UE ROM Short Term Goal (STG) Patient to be independent and compliant with HEP for purposes of shoulder ROM and edema reduction 03/02/20: good goal progress 05/02/19: poor compliance due to depression STG Duration 06/16/20 [facility] Living Goal (LTG) Patient to demonstrate right UE ROM WNL to allow her to perform all usual activities including reaching overhead and donning/doffing her bra without difficulty 03/01/20: good goal progress 05/02/20: decrease in ROM due to poor compliance to HEP, pain LTG Duration 07/31/20 Two Impairment pain right UE, neck, and chest Senior Living Goal (LTG) Decrease pain by at least 50% to improve activity tolerance and quality of life. 03/01/20: some goal progress 05/02/20: pain has increased recently especially with increase in headaches, pain neck and shoulder LTG Duration 07/31/20 One Impairment lymphedema right UE and chest wall Short Term Goal (STG) Decrease and stabilize lymphedema (no increase or decrease greater than 1 cm over the course of 1 week) 03/01/20: goal progress, though now that patient able to be wrapped, feel patient will make better progress. 05/02/20: poor compliance to self-wrapping, has not obtained compression garment yet. STG Duration 04/04/20 Collections Representative Goal (LTG) Patient to be independent with all aspects of self management for lymphedema to include self-MLD, sequential lymphedema exercises, be fit with appropriate compression garment(s) and demonstrate correct use 03/01/20: goal progress 05/02/20: poor compliance due to depression LTG Duration 05/03/20 Assessment Summary Assessment Pt received a voice mail from the [employer] but has not made contact yet. Encouraged pt to follow up as measuring for a compression garment will be an essential next step. Pt understands she must follow up with her PCP or treating physician and ask them to request additional PT visits. Physical Therapy Plan Frequency and Duration Frequency of Treatment 20 visits Duration of Treatment 12 weeks Plan of Care Start Date 05/02/20 Plan of Care End Date 07/31/20
--- NOTE | 2020-10-26 16:00 | PT.OPDS ---
Current Diagnoses Complex regional pain syndrome I of upper limb, bilateral (06/13/20) Myalgia, unspecified site (06/13/20) Visit Care Team Role Provider Type Gaby Hopson MD Family Provider Non-Staff Primary Care Provider Specialty: Internal Medicine Address: [facility] [facility], [address], [place], [address] Email: Cristóbal Webster LAC Attending Provider Non-Staff Referring Provider Specialty: Anesthesia/Pain Management Address: [address] [place] [address], [id number] Email: Visit Number Visit Number 17 Discharge Summary PT-OP-B Current Condition Start: 01/31/20 10:46 Freq: Status: Active Protocol: Document 05/30/20 10:27 [facility] (Rec: 05/30/20 10:54 [facility] [id number]) Current Condition History of Current Condition Onset Date 2007 Current Complaints bilateral UE pain History of Current Condition 2007 fractured both elbows after a fall at work landed in pushup position. Surgical intervention right radial head replacement. Has had PT multiple times since 2007. 2009 removal of radial head with use of muscle flap per patient. Reports persistent pain, development of CRPS, and gradual onset of swelling in right chest, right UE. Has had 4 nerve blocks with no pain-relieving benefit. Has seen ceramic painter; was sent to PT for lymphatic massage, MFR and aquatic therapy; states she benefited from all. Most recently after moving went to [place] [facility]. Some benefit from trial spinal cord stimulator initially, second time stimulator inserted 2013 had bad reaction with some weakness. Now has moved to [place], now goes to [facility], sent to Dr. Berger in [place] who told patient the stimulator may have migrated and wasn't doing her any good. Most recently referred to [facility], physician stated stimulator put in wrong. Has more scar tissue and has refused another stimulator due to that experience. C/o hedaches, severe pain right UE . Has been put on Flexeril due to muscle spasms. Patient reports depression due to her disability, moving from [place], has leukemia, unable to see grandchildren or daughter in [place]. Other daughter across country in [place]. Caregiver for her . Also c/o lymphedema right subaxillary region, possibly related to RSD s/p elbow injury. Went to [facility], therapist told her she couldn' t do anything for her, then sent to DO, didn't have good experience. Prior Treatments and Tests PT, neuromuscular stimulator, medication. PT-OP-C Subjective Start: 01/31/20 10:46 Freq: Status: Active Protocol: Document 06/13/20 15:42 AW (Rec: 06/13/20 15:59 AW [email or web address]) OP-PT Subjective Patient Comments Patient Comments Pt is in good spirits, chatty and happy to come to therapy today PT-OP-F Manual Assessment Start: 01/31/20 10:46 Freq: Status: Active Protocol: Document 02/03/20 10:27 SAK (Rec: 02/03/20 17:25 SAK [id number]) Manual Assessments Soft Tissue Assessment Soft Tissue Mobility Assessment no fibrosis right UE or chest Other Manual Assessments Other Manual Assessments palpable tightness bilateral upper traps right greater than left PT-OP-J Posture/Palpation/Skin Start: 01/31/20 10:46 Freq: Status: Active Protocol: Document 02/03/20 10:27 SAK (Rec: 02/03/20 17:25 SAK [id number]) Posture Evaluation Position Sitting Head/C-Spine Posture Forward Head T-Spine Posture Increased Kyphosis Shoulder Posture (L) Rounded,(R) Rounded Scapula Posture (L) Protracted,(R) Protracted PT-OP-K Range of Motion Start: 01/31/20 10:46 Freq: Status: Active Protocol: Document 02/10/20 10:46 SAK (Rec: 02/10/20 10:48 SAK [id number]) Shoulder Goniometric Range of Motion Shoulder Right Active Flexion 155 Abduction 145 PT-OP-N Lymphedema Start: 01/31/20 10:46 Freq: Status: Active Protocol: Document 06/13/20 15:42 AW (Rec: 06/13/20 15:59 AW [id number]) Lymphedema Measurements Upper Extremity Circumference Measurements Right Affected MCP 20.6 cm Wrist 18.5 cm 5 cm From Wrist Crease 21.4 cm 10 cm From Wrist Crease 26.3 cm 15 cm From Wrist Crease 30.1 cm 20 cm From Wrist Crease 32.2 cm 25 cm From Wrist Crease 32.6 cm 30 cm From Wrist Crease 41.3 cm 35 cm From Wrist Crease 49.3 cm 40 cm From Wrist Crease 53.7 cm 45 cm From Wrist Crease 55.9 cm PT-OP-T Assessment and Plan Start: 01/31/20 10:46 Freq: Status: Active Protocol: Document 10/26/20 15:59 [facility] (Rec: 10/26/20 16:00 [facility] [id number]) Physical Therapy Plan Discharge Physical Therapy Discharge Reasons No Longer Attending PT
== END 2020-06-13 16:30 ==
LOC: PHYS 14:30
PROVIDERS: Family Provider Internal Medicine; PCP Internal Medicine; Referring Provider Acupuncturist; Visit Provider Acupuncturist
DX: G90.513 Complex regional pain syndrome I of upper limb, bilateral (principal); M79.10 Myalgia, unspecified site
CPT/HCPCS: 97110; 97140; 97162; 97535

== ENCOUNTER → 2020-08-08 12:54 | Outpatient (CLI) | payer OTHER, SELFPAY ==
[2020-08-08] MEDS: COVID-19 VACC #1, MRNA(MOD) 100 MCG/0.5 ML VIAL IM (13:02)
== END ==
PROVIDERS: Family Provider Internal Medicine; PCP Internal Medicine; Visit Provider Internal Medicine
DX: Z23 Encounter for immunization (principal)
CPT/HCPCS: 0011A; 91301

== ENCOUNTER → 2020-09-06 13:18 | Outpatient (CLI) | payer OTHER, SELFPAY ==
[2020-09-06] MEDS: COVID-19 VACC #2, MRNA(MOD) 100 MCG/0.5 ML VIAL IM (13:22)
== END ==
PROVIDERS: Family Provider Internal Medicine; PCP Internal Medicine; Visit Provider Internal Medicine
DX: Z23 Encounter for immunization (principal)
CPT/HCPCS: 0012A; 91301

== ENCOUNTER → 2020-11-24 10:53 | Outpatient (CLI) | payer OTHER, SELFPAY ==
--- NOTE | 2020-11-24 10:57 | DIET.PN ---
Dietary Progress Note Assessment: 60y F [address] f/u for help with post-gastric bypass weight gain. Pt has been dealing with stress and depression throughout the pandemic leading to poor food choices and physical inactivity. Pt attending visit to set concrete health goals. 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 Interventions: 1. Spent visit using motivational interviewing and helping pt to frame goals into what she wants her future self (in 1-3yrs) to be like. Discussed talking to her future self when making poor food and activity choices. Discussed starting physical activity as a solo activity as pts often not up for exercise so she stays home. Discussed exercise as mood booster and way to change her body in a way that will ease some of her depression. Goals: 1. Pt will walk at a specific park in [facility], 7-9am for one lap on Mondays and Fridays. 2. In evening while coloring pt will choose popcorn, vegetables, or low sugar hard candy. 3. Pt will do Wii dancing or 15 min on treadmill on Tuesdays and prior to lunch. 4. Pt will call [facility] to ask about membership and water walking/physical therapy. Monitoring/Evaluations: f/u in 2w to assess progress and problem solve barriers
== END ==
PROVIDERS: Family Provider Internal Medicine; PCP Internal Medicine; Referring Provider Psychiatry & Neurology Psychiatry; Visit Provider Psychiatry & Neurology Psychiatry
DX: E66.9 Obesity, unspecified (principal); Z68.42 Body mass index [BMI] 45.0-49.9, adult; Z71.3 Dietary counseling and surveillance; Z98.84 Bariatric surgery status
CPT/HCPCS: 97803

== ENCOUNTER → 2021-01-04 11:01 | Outpatient (CLI) | payer OTHER, SELFPAY ==
--- NOTE | 2021-01-04 11:06 | DIET.PN1 ---
Dietary Progress Note 306# today Pt feels she is overeating out of stress and boredom, surprised she has not gained weight since our last visit. Pt dealing with caregiver burn out and depression as she misses her family dearly. Feels isolated at home and spends time snacking. Discussed signing up for [email or web address] to see if there are safe volunteering opportunities near her to interact with others and build community. Pt loves being busy and overbooked, feels her weight gain started when she began staying at home too much. Discussed potential role of GLP-1 receptor agonists for increasing satiety to turn off snacking. This medication seems to be indicated for post-gastric bypass weight gain. Pt will talk c her doctor to see if option. Pt is interested in trialing. f/u in 2 mo
== END ==
PROVIDERS: Family Provider Internal Medicine; PCP Internal Medicine; Referring Provider Internal Medicine; Visit Provider Internal Medicine
DX: Z71.3 Dietary counseling and surveillance (principal)
CPT/HCPCS: 97803

== ENCOUNTER → 2021-03-08 11:14 | Outpatient (CLI) | payer OTHER, SELFPAY ==
--- NOTE | 2021-03-08 11:20 | DIET.PN1 ---
Dietary Progress Note 61y F [address] f/u for weight gain s/p RYGB. Pts PCP is going to start prescribing ozempic to help with weight loss as pt not finding much success via nutrition interventions as she has gained 20# since we started working together 2y ago. 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 Pt generally has difficulty c motivation for exercise but always enjoyed meal prepping and cooking. Pt reports now both she had spouse spend their days in front of screens ordering take out such as [employer] pizza and pasta, sub sandwiches, items which are not within her bariatric diet reccs. Pt reports having oatmeal with bagel for breakfast, again, not in line with bariatric diet, and states she has been snacking throughout the day. Interventions: 1. Encouraged pt to f/u c PCP regarding new medication which will hopefully reduce her frequent snacking to help turn her weight around. 2. Provided pt with meal plan template so when she orders out meals, she can stick to a kcal, carb, and protein level. 3. Encouraged pt to purchase her bariatric protein shakes to have with breakfast. f/u in 1mo. Electronically Signed by: Maira Pope 03/08/21 11:20 Clinical Dietitian [address] [place] [address]
[2021-03-08 11:33] VITALS: BMI 50.6
== END ==
PROVIDERS: Family Provider Internal Medicine; PCP Internal Medicine; Referring Provider Internal Medicine; Visit Provider Internal Medicine
DX: Z71.3 Dietary counseling and surveillance (principal); Z98.84 Bariatric surgery status
CPT/HCPCS: 97803

== ENCOUNTER → 2021-06-21 12:51 | Outpatient (CLI) | payer OTHER, SELFPAY ==
--- NOTE | 2021-06-21 13:40 | DIET.PN1 ---
Dietary Progress Note 61y F [address] f/u for post gastric bypass weight gain. Pt up to 320#, has quite a bit of edema in body. Pt in brighter mood than she has been in session over the past 2y. Pt had her family (grandkids) visit from [place] which had been a big source of sadness for her as she moved across the [place] to be nearer to them. Pt motivated to go to [facility] to get membership to do water aerobics. Barrier used to be getting her sick/exposed to covid, however, they had discussion that the risk is worth her self-care and that she will wear a mask in the water. Pt also got referral to bariatric center to see if her stomach pouch has stretched. She may elect to do a revision. Interventions: 1. To address edema, educated pt on salt in the diet. She states her thinks she uses a lot of salt. Discussed 2,000mg daily intake between added sodium and processed foods. Identified her protein bar contains 240mg sodium, an item not thought as salty. Asked pt to look at her food products to see just how much sodium they contain. 2. Encouraged pt to move forward with Y membership, this was intervention we discussed at first meeting 2y ago prior to pandemic. Also gave pt resource of [employer] for movement. 3. Encouraged pt to follow through with bariatric consultation. This RD happy to support her along the way. Plan: f/u in 6w. Electronically Signed by: Maira Pope 06/21/21 13:40 Clinical Dietitian [address] [address]
== END ==
PROVIDERS: Family Provider Internal Medicine; PCP Internal Medicine; Referring Provider Internal Medicine; Visit Provider Internal Medicine
DX: Z98.84 Bariatric surgery status (principal); Z71.3 Dietary counseling and surveillance
CPT/HCPCS: 97803

== ENCOUNTER 2021-09-17 12:30 | Outpatient (RCR) | payer OTHER, SELFPAY ==
--- NOTE | 2021-02-06 17:28 | PT.OIE ---
Current Diagnoses Complex regional pain syndrome I of upper limb, bilateral (02/06/21) Past Medical History (Last Updated 05/12/20 @ 09:14 by Arnav Meza DO) CPRS 1 (complex regional pain syndrome I) of upper limb S/P gastric bypass Past Surgical History (Last Updated 05/12/20 @ 09:14 by Arnav Meza DO) S/P gastric bypass Visit Care Team Role Provider Type Gaby Hopson MD Family Provider Non-Staff Primary Care Provider Specialty: Internal Medicine Address: [address] [place] [address], [address], [address] Email: Cristóbal Webster LAC Attending Provider Non-Staff Referring Provider Specialty: Anesthesia/Pain Management Address: [address] [place] [address], [id number] Email: Physical Therapy Initial Evaluation PT-OP-A Visit Information Start: 02/06/21 08:16 Freq: Status: Active Protocol: Document 02/06/21 13:46 [facility] (Rec: 02/06/21 14:18 [facility] [id number]) Out-Patient Physical Therapy Visit Information Visit Information Visit Type Initial Evaluation Visit Start Time 13:45 Visit Stop Time 15:15 Total Visit Minutes 90 Visit Number 1 Evaluation Information Evaluation Date 02/06/21 Precautions Precautions Complex regional pain syndrome , depression PT-OP-B Current Condition Start: 02/06/21 08:16 Freq: Status: Active Protocol: Document 02/06/21 13:46 [facility] (Rec: 02/06/21 14:18 [facility] [id number]) Current Condition History of Current Condition Onset Date 10+ years Current Complaints worsening chronic pain and edema right UE History of Current Condition Patient has long history of edema right UE s/p injury to right UE with resulting complex regional pain syndrome . Reports recent worsening since last seen in PT. Now prescribed Hydrocodone, taking 5x/day, helps some with the pain, but when about due arm, neck, and back start hurting. Pain and lymphedema both have been worsening since last seen in PT. 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 Discharged from PT early last time due to insurance issues, never obtained compression garment. Not doing well with stress due to 's leukemia, brother earlier this year, as well as cat . Covid and 's illness have resulted in no in person contact with daughters or children. PT order at this time for PT to include aquatic PT and lymphatic massage and treatment. Patient sees psychologist and psychiatrist for severe depression. 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 Prior short term PT. Treatment Goals Patient/Caregiver Goals Decrease pain, decrease edema. Prior Functional Status Baseline Function- ADL's Modified Independent Baseline Function- Mobility Modified Independent Baseline Function- Recreation/Hobbies crafts Current Functional Impairments (Reported) Functional Limitations- ADL's painful Functional Limitations- Work/School disability Functional Limitations- Recreation/ no interest due to depression, Hobbies pain right UE PT-OP-C Subjective Start: 02/06/21 08:16 Freq: Status: Active Protocol: Document 02/06/21 13:46 [facility] (Rec: 02/07/21 17:11 [facility] [id number]) Patient Questionnaires Lower Extremity Functional Scale LEFS Score 35 PT-OP-F Manual Assessment Start: 02/06/21 08:16 Freq: Status: Active Protocol: Document 02/06/21 13:46 [facility] (Rec: 02/07/21 17:26 [facility] [id number]) Manual Assessments Soft Tissue Assessment Soft Tissue Mobility Assessment decreased scar mobility right elbow, no increased warmth or redness or signs of infection right UE. PT-OP-J Posture/Palpation/Skin Start: 02/06/21 08:16 Freq: Status: Active Protocol: Document 02/06/21 13:46 [facility] (Rec: 02/07/21 17:26 [facility] [id number]) Posture Evaluation Position Sitting Head/C-Spine Posture Forward Head T-Spine Posture Increased Kyphosis Shoulder Posture (L) Rounded,(R) Rounded Scapula Posture (L) Protracted,(R) Protracted Arm Posture (L) Internally Rotated,(R) Internally Rotated PT-OP-K Range of Motion Start: 02/06/21 08:16 Freq: Status: Active Protocol: Document 02/06/21 13:46 [facility] (Rec: 02/07/21 17:26 [facility] [id number]) Cervical Spine Range of Motion Cervical Spine Active ROM Limitations Soft Tissue Tightness Comments mod tightness al motions Shoulder Goniometric Range of Motion Shoulder Right Active Shoulder ROM WFL No Testing Position Sitting Flexion 125 Extension 10 Abduction 120 External Rotation at 45 degrees 40 Abduction Internal Rotation Behind Back (text) L5 Left Active Shoulder ROM WFL Yes Shoulder ROM Limitations Shoulder ROM Limitations Soft Tissue Tightness,Pain, Swelling Elbow/Forearm Range of Motion Elbow/Forearm Right Active Elbow/Forearm ROM WFL No Elbow Flexion (degrees) 135 Elbow Extension (degrees) 5 Pronation (degrees) 75 Supination (degrees) 45 Left Active Elbow/Forearm ROM WFL Yes PT-OP-M Strength Start: 02/06/21 08:16 Freq: Status: Active Protocol: Document 02/06/21 13:46 [facility] (Rec: 02/07/21 17:26 [facility] [id number]) Shoulder Strength Shoulder Manual Muscle Testing Right Flexion 4- Good- Extension 4- Good- Abduction (C5) 4- Good- External Rotation 4- Good- Internal Rotation 4- Good- Comments painful Left Flexion 4+ Good+ Extension 4+ Good+ Abduction (C5) 4+ Good+ Adduction 5 Normal External Rotation 5 Normal Internal Rotation 5 Normal Elbow/Forearm Strength Elbow and Forearm Manual Muscle Testing Right Flexion (C6) 4- Good- Extension (C7) 4- Good- Pronation 4- Good- Supination 4- Good- Comments painful Left Flexion (C6) 5 Normal Extension (C7) 5 Normal PT-OP-N Lymphedema Start: 02/06/21 08:16 Freq: Status: Active Protocol: Document 02/06/21 13:46 [facility] (Rec: 02/07/21 17:26 [facility] [id number]) Lymphedema Measurements Upper Extremity Circumference Measurements Right Affected MCP 20.5 cm Dorsum of Hand 22 cm Wrist 17.9 cm 5 cm From Wrist Crease 21.2 cm 10 cm From Wrist Crease 25.1 cm 15 cm From Wrist Crease 30 cm 20 cm From Wrist Crease 33.5 cm 25 cm From Wrist Crease 41 cm 30 cm From Wrist Crease 49 cm 35 cm From Wrist Crease 52.5 cm 40 cm From Wrist Crease 54.7 cm 45 cm From Wrist Crease 35.1 cm Elbow Joint 64.5 cm Left Unaffected MCP 19.4 cm Dorsum of Hand 20.5 cm Wrist 17.6 cm 5 cm From Wrist Crease 21.2 cm 10 cm From Wrist Crease 25.1 cm 15 cm From Wrist Crease 29.4 cm 20 cm From Wrist Crease 33.2 cm 25 cm From Wrist Crease 38 cm 30 cm From Wrist Crease 43.1 cm 35 cm From Wrist Crease 47.9 cm 40 cm From Wrist Crease 52.5 cm 45 cm From Wrist Crease 35 cm Elbow Joint 64.5 cm PT-OP-Q Treatments Start: 02/06/21 08:16 Freq: Status: Active Protocol: Document 02/06/21 13:46 [facility] (Rec: 02/07/21 17:26 [facility] [id number]) Lymphedema Treatment Manual Lymphatic Drainage Location for right UE lymphedema Comments focus on AAA, AAI, ANURAG pathways for drainage Lymphedema Wrapping Body Location Right UE Materials Tubigrip size F forearm doubled, Size H upper arm Other refused bandaging today, will bring prior bandages and come prepared for bandaging. Patient Education Compression Garments patient education regarding option Other shown compression sleeve, gauntlet, compression alternative with velcro. PT-OP-T Assessment and Plan Start: 02/06/21 08:16 Freq: Status: Active Protocol: Document 02/06/21 13:46 [facility] (Rec: 02/07/21 17:11 [facility] [id number]) Physical Therapy Assessment Goals Four Impairment lacking regular exercise program Retirement Goal (LTG) Patient to be independent with HEP and aquatic exercise program for long-term fitness and pain management to include land and aquatic-based exercise LTG Duration 05/08/21 Three Impairment edema right UE Ballpoint Pen Assembly Machine Operator Goal (LTG) Patient to be independent with all aspects of edema management to include skin care, manual lymphatic drainage, lymphedema bandaging and sequential lymphedema exercises, and be fit with appropriate compression garment right UE when lymphedema stable (no increase or decrease greater than 1 cm over the course of 1 week.) LTG Duration 05/08/21 Two Impairment Pain right UE due to complex regional pain synd Impairment pain 6/10 Retirement Goal (LTG) Decrease pain to no greater than 3/10 to allow patient to resume prior activities including crafting LTG Duration 05/08/21 One Impairment Lymphedema life impact scale 35% Impairment Function-limiting lymphedema Retirement Goal (LTG) Decrease lymphedema life impact scale to no greater than 15% as measure of improved activity tolerance, function, and quality of life. LTG Duration 05/08/21 Assessment Summary Assessment Patient presents to PT with function-limiting pain and edema right UE s/p prior traumatic injury. Previously treated but discharged prior to completing course of therapy, was not fit with appropriate compression garment. Reports pain and swelling have increased right UE since last seen, she has also gained weight. 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 Feel aquatic therapy could be highly beneficial component of PT for this patient as form of long-term fitness and pain management as well as beneficial for her edema; this is going to be re-starting at our clinic starting 02/21/21 Physical Therapy Plan Frequency and Duration Frequency of Treatment 12 visits Duration of Treatment 12 weeks Plan of Care Start Date 02/06/21 Plan of Care End Date 05/08/21 Therapeutic Interventions Therapeutic Interventions Aquatic Therapy,Lymphedema Management,Manual Therapy,Self -Care/Home Management,Soft Tissue Mobilization, Therapeutic Exercises Modalities Cold Pack/Ice Massage Next Visit Focus/Plan Next Note Type Treatment Note Next Visit Plan Lymphatic massage, lymphedema bandaging, further discussion of compression options sources for lymphedema garment fitting.
--- NOTE | 2021-02-06 17:28 | PT.OPPOC ---
Physical, Occupational & Speech Therapy At [facility] Current Diagnoses Complex regional pain syndrome I of upper limb, bilateral (02/06/21) Visit Care Team Role Provider Type Gaby Hopson MD Family Provider Non-Staff Primary Care Provider Specialty: Internal Medicine Address: [facility], [address], [address] Email: Cristóbal Webster LAC Attending Provider Non-Staff Referring Provider Specialty: Anesthesia/Pain Management Address: [address] [place] [address], [id number] Email: Plan Of Care PT-OP-T Assessment and Plan Start: 02/06/21 08:16 Freq: Status: Active Protocol: Document 02/06/21 13:46 [facility] (Rec: 02/07/21 17:11 [facility] [id number]) Physical Therapy Assessment Goals Four Impairment lacking regular exercise program Mcc Goal (LTG) Patient to be independent with HEP and aquatic exercise program for long-term fitness and pain management to include land and aquatic-based exercise LTG Duration 05/08/21 Three Impairment edema right UE Mcc Goal (LTG) Patient to be independent with all aspects of edema management to include skin care, manual lymphatic drainage, lymphedema bandaging and sequential lymphedema exercises, and be fit with appropriate compression garment right UE when lymphedema stable (no increase or decrease greater than 1 cm over the course of 1 week.) LTG Duration 05/08/21 Two Impairment Pain right UE due to complex regional pain synd Impairment pain 6/10 Front Counter Attendant Goal (LTG) Decrease pain to no greater than 3/10 to allow patient to resume prior activities including crafting LTG Duration 05/08/21 One Impairment Lymphedema life impact scale 35% Impairment Function-limiting lymphedema Front Counter Attendant Goal (LTG) Decrease lymphedema life impact scale to no greater than 15% as measure of improved activity tolerance, function, and quality of life. LTG Duration 05/08/21 Assessment Summary Assessment Patient presents to PT with function-limiting pain and edema right UE s/p prior traumatic injury. Previously treated but discharged prior to completing course of therapy, was not fit with appropriate compression garment. Reports pain and swelling have increased right UE since last seen, she has also gained weight. 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 Feel aquatic therapy could be highly beneficial component of PT for this patient as form of long-term fitness and pain management as well as beneficial for her edema; this is going to be re-starting at our clinic starting 02/21/21 Physical Therapy Plan Frequency and Duration Frequency of Treatment 12 visits Duration of Treatment 12 weeks Plan of Care Start Date 02/06/21 Plan of Care End Date 05/08/21 Therapeutic Interventions Therapeutic Interventions Aquatic Therapy,Lymphedema Management,Manual Therapy,Self -Care/Home Management,Soft Tissue Mobilization, Therapeutic Exercises Modalities Cold Pack/Ice Massage Next Visit Focus/Plan Next Note Type Treatment Note Next Visit Plan Lymphatic massage, lymphedema bandaging, further discussion of compression options sources for lymphedema garment fitting. Plan of Care Dates Plan of Care Start Date 02/06/21 Plan of Care End Date 05/08/21 Electronically Signed by: Jena Schulz, PT 02/07/21 [id number] Please Sign and Return: I have reviewed this Plan of Care and certify that the skilled therapy services above are required to meet the patient?s needs. Physician Signature Date Printed Name and Credentials Clinical Instructor Signature Printed Name and Credentials
--- NOTE | 2021-02-08 15:04 | PT.OTN ---
Current Diagnoses Complex regional pain syndrome I of upper limb, bilateral (02/08/21) Lymphedema, not elsewhere classified (02/08/21) Physical Therapy Treatment Note PT-OP-A Visit Information Start: 02/06/21 08:16 Freq: Status: Active Protocol: Document 02/08/21 14:10 [facility] (Rec: 02/08/21 14:39 [facility] [id number]) Out-Patient Physical Therapy Visit Information Visit Information Visit Type Treatment Note Visit Start Time 13:45 Visit Stop Time 15:00 Total Visit Minutes 75 Visit Number 2 Evaluation Information Evaluation Date 02/06/21 Precautions Precautions Complex regional pain syndrome , depression PT-OP-B Current Condition Start: 02/06/21 08:16 Freq: Status: Active Protocol: Document 02/08/21 14:10 [facility] (Rec: 02/08/21 14:39 [facility] [id number]) Current Condition History of Current Condition Onset Date 10+ years Current Complaints worsening chronic pain and edema right UE History of Current Condition Patient has long history of edema right UE s/p injury to right UE with resulting complex regional pain syndrome . Reports recent worsening since last seen in PT. Now prescribed Hydrocodone, taking 5x/day, helps some with the pain, but when about due arm, neck, and back start hurting. Pain and lymphedema both have been worsening since last seen in PT. 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 Discharged from PT early last time due to insurance issues, never obtained compression garment. Not doing well with stress due to 's leukemia, brother earlier this year, as well as cat . Covid and 's illness have resulted in no in person contact with daughters or children. PT order at this time for PT to include aquatic PT and lymphatic massage and treatment. Patient sees psychologist and psychiatrist for severe depression. 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 Prior short term PT. Treatment Goals Patient/Caregiver Goals Decrease pain, decrease edema. PT-OP-C Subjective Start: 02/06/21 08:16 Freq: Status: Active Protocol: Document 02/08/21 14:10 [facility] (Rec: 02/08/21 14:39 [facility] [id number]) OP-PT Subjective Patient Comments Patient Comments Wore Tubigrip until bedtime both days since seen, feels much better than bandaging, feels swelling decreased. PT-OP-F Manual Assessment Start: 02/06/21 08:16 Freq: Status: Active Protocol: Document 02/06/21 13:46 [facility] (Rec: 02/07/21 17:26 [facility] [id number]) Manual Assessments Soft Tissue Assessment Soft Tissue Mobility Assessment decreased scar mobility right elbow, no increased warmth or redness or signs of infection right UE. PT-OP-J Posture/Palpation/Skin Start: 02/06/21 08:16 Freq: Status: Active Protocol: Document 02/06/21 13:46 [facility] (Rec: 02/07/21 17:26 [facility] [id number]) Posture Evaluation Position Sitting Head/C-Spine Posture Forward Head T-Spine Posture Increased Kyphosis Shoulder Posture (L) Rounded,(R) Rounded Scapula Posture (L) Protracted,(R) Protracted Arm Posture (L) Internally Rotated,(R) Internally Rotated PT-OP-K Range of Motion Start: 02/06/21 08:16 Freq: Status: Active Protocol: Document 02/06/21 13:46 [facility] (Rec: 02/07/21 17:26 [facility] [id number]) Cervical Spine Range of Motion Cervical Spine Active ROM Limitations Soft Tissue Tightness Comments mod tightness al motions Shoulder Goniometric Range of Motion Shoulder Right Active Shoulder ROM WFL No Testing Position Sitting Flexion 125 Extension 10 Abduction 120 External Rotation at 45 degrees 40 Abduction Internal Rotation Behind Back (text) L5 Left Active Shoulder ROM WFL Yes Shoulder ROM Limitations Shoulder ROM Limitations Soft Tissue Tightness,Pain, Swelling Elbow/Forearm Range of Motion Elbow/Forearm Right Active Elbow/Forearm ROM WFL No Elbow Flexion (degrees) 135 Elbow Extension (degrees) 5 Pronation (degrees) 75 Supination (degrees) 45 Left Active Elbow/Forearm ROM WFL Yes PT-OP-M Strength Start: 02/06/21 08:16 Freq: Status: Active Protocol: Document 02/06/21 13:46 [facility] (Rec: 02/07/21 17:26 [facility] [id number]) Shoulder Strength Shoulder Manual Muscle Testing Right Flexion 4- Good- Extension 4- Good- Abduction (C5) 4- Good- External Rotation 4- Good- Internal Rotation 4- Good- Comments painful Left Flexion 4+ Good+ Extension 4+ Good+ Abduction (C5) 4+ Good+ Adduction 5 Normal External Rotation 5 Normal Internal Rotation 5 Normal Elbow/Forearm Strength Elbow and Forearm Manual Muscle Testing Right Flexion (C6) 4- Good- Extension (C7) 4- Good- Pronation 4- Good- Supination 4- Good- Comments painful Left Flexion (C6) 5 Normal Extension (C7) 5 Normal PT-OP-N Lymphedema Start: 02/06/21 08:16 Freq: Status: Active Protocol: Document 02/08/21 14:10 [facility] (Rec: 02/08/21 14:57 [facility] [id number]) Lymphedema Measurements Upper Extremity Circumference Measurements Right Affected MCP 20.4 cm Dorsum of Hand 21.5 cm Wrist 17.9 cm 5 cm From Wrist Crease 20.7 cm 10 cm From Wrist Crease 24.6 cm 15 cm From Wrist Crease 30 cm 20 cm From Wrist Crease 32.8 cm 25 cm From Wrist Crease 38.9 cm 30 cm From Wrist Crease 47.8 cm 35 cm From Wrist Crease 48.1 cm 40 cm From Wrist Crease 50.4 cm 45 cm From Wrist Crease 32.5 cm Elbow Joint 63.5 cm PT-OP-Q Treatments Start: 02/06/21 08:16 Freq: Status: Active Protocol: Document 02/08/21 14:10 [facility] (Rec: 02/08/21 14:39 [facility] [id number]) Therapeutic Exercises Supine Exercises pec stretch Reps/Minutes 2x30 shoulder flex stretch Reps/Minutes 2x30 Sitting Exercises shoulder blade squeeze Reps/Minutes 5x sequential lymphedema ex Sitting Exercise Name ROM all joints proximal to distal neck to fingers and in reverse Reps/Minutes 5x pulleys Sitting Exercise Name flex, scaption Reps/Minutes 10x Lymphedema Treatment Manual Lymphatic Drainage Location for right UE lymphedema Comments focus on AAA, AAI, ANURAG pathways for drainage Lymphedema Wrapping Body Location Right UE Materials Tubigrip size F forearm doubled, Size H upper arm Other Tubigrip working well, assisted to don assuring proximal containment. No bandaging. Compression Garment Assessment Compression Garment Assessment Details good fit and benefit from Tubigrip, more comfortable and stays up better for patient than bandaging. Patient Education Sequential Lymphedema Exercises instrsuction PT-OP-T Assessment and Plan Start: 02/06/21 08:16 Freq: Status: Active Protocol: Document 02/08/21 14:10 [facility] (Rec: 02/08/21 14:39 [facility] [id number]) Physical Therapy Assessment Goals Four Impairment lacking regular exercise program Sous Chef Kitchen Manager Goal (LTG) Patient to be independent with HEP and aquatic exercise program for long-term fitness and pain management to include land and aquatic-based exercise LTG Duration 05/08/21 Three Impairment edema right UE Sous Chef Kitchen Manager Goal (LTG) Patient to be independent with all aspects of edema management to include skin care, manual lymphatic drainage, lymphedema bandaging and sequential lymphedema exercises, and be fit with appropriate compression garment right UE when lymphedema stable (no increase or decrease greater than 1 cm over the course of 1 week.) LTG Duration 05/08/21 Two Impairment Pain right UE due to complex regional pain synd Impairment pain 6/10 Assisted Goal (LTG) Decrease pain to no greater than 3/10 to allow patient to resume prior activities including crafting LTG Duration 05/08/21 One Impairment Lymphedema life impact scale 35% Impairment Function-limiting lymphedema Assisted Goal (LTG) Decrease lymphedema life impact scale to no greater than 15% as measure of improved activity tolerance, function, and quality of life. LTG Duration 05/08/21 Assessment Summary Assessment Good circumferential reduction with MLD and Tubigrip compression. Patient has contacted [facility] regarding compression garment, made appointment. Patient reported insurance coverage available for compression garments. Physical Therapy Plan Frequency and Duration Frequency of Treatment 12 visits Duration of Treatment 12 weeks Plan of Care Start Date 02/06/21 Plan of Care End Date 05/08/21 Therapeutic Interventions Therapeutic Interventions Aquatic Therapy,Lymphedema Management,Manual Therapy,Self -Care/Home Management,Soft Tissue Mobilization, Therapeutic Exercises Modalities Cold Pack/Ice Massage Next Visit Focus/Plan Next Note Type Treatment Note Next Visit Plan Continue lymphedema management , educate on compression options, further discussion of fitting. Progress ther ex as tolerated
--- NOTE | 2021-02-13 14:45 | PT.OTN ---
Current Diagnoses Complex regional pain syndrome I of upper limb, bilateral (02/13/21) Lymphedema, not elsewhere classified (02/13/21) Physical Therapy Treatment Note PT-OP-A Visit Information Start: 02/06/21 08:16 Freq: Status: Active Protocol: Document 02/13/21 13:01 [facility] (Rec: 02/13/21 13:12 [facility] [id number]) Out-Patient Physical Therapy Visit Information Visit Information Visit Type Treatment Note Visit Start Time 13:00 Visit Stop Time 14:10 Total Visit Minutes 70 Visit Number 3 Precautions Precautions Complex regional pain syndrome , depression PT-OP-B Current Condition Start: 02/06/21 08:16 Freq: Status: Active Protocol: Document 02/13/21 13:01 [facility] (Rec: 02/13/21 13:12 [facility] [id number]) Current Condition History of Current Condition Onset Date 10+ years Current Complaints worsening chronic pain and edema right UE History of Current Condition Patient has long history of edema right UE s/p injury to right UE with resulting complex regional pain syndrome . Reports recent worsening since last seen in PT. Now prescribed Hydrocodone, taking 5x/day, helps some with the pain, but when about due arm, neck, and back start hurting. Pain and lymphedema both have been worsening since last seen in PT. 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 Discharged from PT early last time due to insurance issues, never obtained compression garment. Not doing well with stress due to 's leukemia, brother earlier this year, as well as cat . Covid and 's illness have resulted in no in person contact with daughters or children. PT order at this time for PT to include aquatic PT and lymphatic massage and treatment. Patient sees psychologist and psychiatrist for severe depression. 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 Prior short term PT. PT-OP-C Subjective Start: 02/06/21 08:16 Freq: Status: Active Protocol: Document 02/13/21 13:01 [facility] (Rec: 02/13/21 13:12 [facility] [id number]) OP-PT Subjective Patient Comments Patient Comments Right elbow hurting since last night, not sure what she did. Has been wearing Tubigrip during the day, removing at night for bed, feels it has been helpful. Difficulty reaching right UE overhead ie to wash hair. Has an appointment with [facility] for consult. PT-OP-F Manual Assessment Start: 02/06/21 08:16 Freq: Status: Active Protocol: Document 02/06/21 13:46 [facility] (Rec: 02/07/21 17:26 [facility] [id number]) Manual Assessments Soft Tissue Assessment Soft Tissue Mobility Assessment decreased scar mobility right elbow, no increased warmth or redness or signs of infection right UE. PT-OP-J Posture/Palpation/Skin Start: 02/06/21 08:16 Freq: Status: Active Protocol: Document 02/06/21 13:46 [facility] (Rec: 02/07/21 17:26 [facility] [id number]) Posture Evaluation Position Sitting Head/C-Spine Posture Forward Head T-Spine Posture Increased Kyphosis Shoulder Posture (L) Rounded,(R) Rounded Scapula Posture (L) Protracted,(R) Protracted Arm Posture (L) Internally Rotated,(R) Internally Rotated PT-OP-K Range of Motion Start: 02/06/21 08:16 Freq: Status: Active Protocol: Document 02/06/21 13:46 [facility] (Rec: 02/07/21 17:26 [facility] [id number]) Cervical Spine Range of Motion Cervical Spine Active ROM Limitations Soft Tissue Tightness Comments mod tightness al motions Shoulder Goniometric Range of Motion Shoulder Right Active Shoulder ROM WFL No Testing Position Sitting Flexion 125 Extension 10 Abduction 120 External Rotation at 45 degrees 40 Abduction Internal Rotation Behind Back (text) L5 Left Active Shoulder ROM WFL Yes Shoulder ROM Limitations Shoulder ROM Limitations Soft Tissue Tightness,Pain, Swelling Elbow/Forearm Range of Motion Elbow/Forearm Right Active Elbow/Forearm ROM WFL No Elbow Flexion (degrees) 135 Elbow Extension (degrees) 5 Pronation (degrees) 75 Supination (degrees) 45 Left Active Elbow/Forearm ROM WFL Yes PT-OP-M Strength Start: 02/06/21 08:16 Freq: Status: Active Protocol: Document 02/06/21 13:46 [facility] (Rec: 02/07/21 17:26 [facility] [id number]) Shoulder Strength Shoulder Manual Muscle Testing Right Flexion 4- Good- Extension 4- Good- Abduction (C5) 4- Good- External Rotation 4- Good- Internal Rotation 4- Good- Comments painful Left Flexion 4+ Good+ Extension 4+ Good+ Abduction (C5) 4+ Good+ Adduction 5 Normal External Rotation 5 Normal Internal Rotation 5 Normal Elbow/Forearm Strength Elbow and Forearm Manual Muscle Testing Right Flexion (C6) 4- Good- Extension (C7) 4- Good- Pronation 4- Good- Supination 4- Good- Comments painful Left Flexion (C6) 5 Normal Extension (C7) 5 Normal PT-OP-N Lymphedema Start: 02/06/21 08:16 Freq: Status: Active Protocol: Document 02/08/21 14:10 [facility] (Rec: 02/08/21 14:57 [facility] [id number]) Lymphedema Measurements Upper Extremity Circumference Measurements Right Affected MCP 20.4 cm Dorsum of Hand 21.5 cm Wrist 17.9 cm 5 cm From Wrist Crease 20.7 cm 10 cm From Wrist Crease 24.6 cm 15 cm From Wrist Crease 30 cm 20 cm From Wrist Crease 32.8 cm 25 cm From Wrist Crease 38.9 cm 30 cm From Wrist Crease 47.8 cm 35 cm From Wrist Crease 48.1 cm 40 cm From Wrist Crease 50.4 cm 45 cm From Wrist Crease 32.5 cm Elbow Joint 63.5 cm PT-OP-Q Treatments Start: 02/06/21 08:16 Freq: Status: Active Protocol: Document 02/13/21 13:01 [facility] (Rec: 02/13/21 13:12 [facility] [id number]) Therapeutic Exercises Supine Exercises pec stretch Reps/Minutes 2x30 shoulder flex stretch Reps/Minutes 2x30 Sitting Exercises shoulder blade squeeze Reps/Minutes 5x sequential lymphedema ex Reps/Minutes 5x pulleys Sitting Exercise Name flex, scaption Reps/Minutes 10x Standing Exercises sequential lymphedema exercises Standing Exercise Name AROM neck, trunk, shoulders, elbows, forearm, wrist Reps/Minutes 10 reps ea Comments standing and sitting. Lymphedema Treatment Manual Lymphatic Drainage Location for right UE lymphedema Comments focus on AAA, AAI, ANURAG pathways for drainage Lymphedema Wrapping Body Location Right UE Materials Tubigrip size F forearm doubled, Size H (or size J doubled due to out of more H) upper arm, size D to right hand Other Tubigrip working well, assisted to don assuring proximal containment. No bandaging. Compression Garment Assessment Compression Garment Assessment Details good fit and benefit from Tubigrip, more comfortable and stays up better for patient than bandaging. Patient Education Compression Garments Patient has consult scheduled 02/19/21 Sequential Lymphedema Exercises performed in standing and sitting PT-OP-T Assessment and Plan Start: 02/06/21 08:16 Freq: Status: Active Protocol: Document 02/13/21 13:01 [facility] (Rec: 02/13/21 13:12 [facility] [id number]) Physical Therapy Assessment Goals Four Impairment lacking regular exercise program Skilled Nursing Goal (LTG) Patient to be independent with HEP and aquatic exercise program for long-term fitness and pain management to include land and aquatic-based exercise LTG Duration 05/08/21 Three Impairment edema right UE Broom Stitcher Goal (LTG) Patient to be independent with all aspects of edema management to include skin care, manual lymphatic drainage, lymphedema bandaging and sequential lymphedema exercises, and be fit with appropriate compression garment right UE when lymphedema stable (no increase or decrease greater than 1 cm over the course of 1 week.) LTG Duration 05/08/21 Two Impairment Pain right UE due to complex regional pain synd Impairment pain 6/10 Broom Stitcher Goal (LTG) Decrease pain to no greater than 3/10 to allow patient to resume prior activities including crafting LTG Duration 05/08/21 One Impairment Lymphedema life impact scale 35% Impairment Function-limiting lymphedema Skilled Nursing Goal (LTG) Decrease lymphedema life impact scale to no greater than 15% as measure of improved activity tolerance, function, and quality of life. LTG Duration 05/08/21 Assessment Summary Assessment Continues to benefit from Tubigrip compression, size D applied to hand today due to mild increased edeme in hand. Tolerated increased exercise. Depression remains large barrier to self care and recovery but she comes to PT wearing Tubigrip appropriately Physical Therapy Plan Frequency and Duration Frequency of Treatment 12 visits Duration of Treatment 12 weeks Plan of Care Start Date 02/06/21 Plan of Care End Date 05/08/21 Therapeutic Interventions Therapeutic Interventions Aquatic Therapy,Lymphedema Management,Manual Therapy,Self -Care/Home Management,Soft Tissue Mobilization, Therapeutic Exercises Modalities Cold Pack/Ice Massage Next Visit Focus/Plan Next Note Type Treatment Note Next Visit Plan Continue lymphedema management , educate on compression options, further discussion of fitting. Progress ther ex as tolerated
--- NOTE | 2021-02-15 17:08 | PT.OTN ---
Current Diagnoses Complex regional pain syndrome I of upper limb, bilateral (02/15/21) Lymphedema, not elsewhere classified (02/15/21) Physical Therapy Treatment Note PT-OP-A Visit Information Start: 02/06/21 08:16 Freq: Status: Active Protocol: Document 02/15/21 13:53 [facility] (Rec: 02/15/21 13:59 [facility] [id number]) Out-Patient Physical Therapy Visit Information Visit Information Visit Type Treatment Note Visit Start Time 13:45 Visit Stop Time 15:00 Total Visit Minutes 75 Visit Number 4 Precautions Precautions Complex regional pain syndrome , depression PT-OP-B Current Condition Start: 02/06/21 08:16 Freq: Status: Active Protocol: Document 02/15/21 13:53 [facility] (Rec: 02/15/21 13:59 [facility] [id number]) Current Condition History of Current Condition Onset Date 10+ years Current Complaints worsening chronic pain and edema right UE History of Current Condition Patient has long history of edema right UE s/p injury to right UE with resulting complex regional pain syndrome . Reports recent worsening since last seen in PT. Now prescribed Hydrocodone, taking 5x/day, helps some with the pain, but when about due arm, neck, and back start hurting. Pain and lymphedema both have been worsening since last seen in PT. 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 Discharged from PT early last time due to insurance issues, never obtained compression garment. Not doing well with stress due to 's leukemia, brother earlier this year, as well as cat . Covid and 's illness have resulted in no in person contact with daughters or children. PT order at this time for PT to include aquatic PT and lymphatic massage and treatment. Patient sees psychologist and psychiatrist for severe depression. 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 Prior short term PT. Treatment Goals Patient/Caregiver Goals Decrease pain, decrease edema. PT-OP-C Subjective Start: 02/06/21 08:16 Freq: Status: Active Protocol: Document 02/15/21 13:53 [facility] (Rec: 02/15/21 13:59 [facility] [id number]) OP-PT Subjective Patient Comments Patient Comments No new c/o, wearing Tubigrip consistently. Patient would like to do aquatic physical therapy but concerned about safety especially due to her brother dying in early 2019 from Covid and her has leukemia. Appt. with [facility] 02/19/21. Will check with as well as [facility] regulations regarding Covid. PT-OP-F Manual Assessment Start: 02/06/21 08:16 Freq: Status: Active Protocol: Document 02/06/21 13:46 [facility] (Rec: 02/07/21 17:26 [facility] [id number]) Manual Assessments Soft Tissue Assessment Soft Tissue Mobility Assessment decreased scar mobility right elbow, no increased warmth or redness or signs of infection right UE. PT-OP-J Posture/Palpation/Skin Start: 02/06/21 08:16 Freq: Status: Active Protocol: Document 02/06/21 13:46 [facility] (Rec: 02/07/21 17:26 [facility] [id number]) Posture Evaluation Position Sitting Head/C-Spine Posture Forward Head T-Spine Posture Increased Kyphosis Shoulder Posture (L) Rounded,(R) Rounded Scapula Posture (L) Protracted,(R) Protracted Arm Posture (L) Internally Rotated,(R) Internally Rotated PT-OP-K Range of Motion Start: 02/06/21 08:16 Freq: Status: Active Protocol: Document 02/06/21 13:46 [facility] (Rec: 02/07/21 17:26 [facility] [id number]) Cervical Spine Range of Motion Cervical Spine Active ROM Limitations Soft Tissue Tightness Comments mod tightness al motions Shoulder Goniometric Range of Motion Shoulder Right Active Shoulder ROM WFL No Testing Position Sitting Flexion 125 Extension 10 Abduction 120 External Rotation at 45 degrees 40 Abduction Internal Rotation Behind Back (text) L5 Left Active Shoulder ROM WFL Yes Shoulder ROM Limitations Shoulder ROM Limitations Soft Tissue Tightness,Pain, Swelling Elbow/Forearm Range of Motion Elbow/Forearm Right Active Elbow/Forearm ROM WFL No Elbow Flexion (degrees) 135 Elbow Extension (degrees) 5 Pronation (degrees) 75 Supination (degrees) 45 Left Active Elbow/Forearm ROM WFL Yes PT-OP-M Strength Start: 02/06/21 08:16 Freq: Status: Active Protocol: Document 02/06/21 13:46 [facility] (Rec: 02/07/21 17:26 [facility] [id number]) Shoulder Strength Shoulder Manual Muscle Testing Right Flexion 4- Good- Extension 4- Good- Abduction (C5) 4- Good- External Rotation 4- Good- Internal Rotation 4- Good- Comments painful Left Flexion 4+ Good+ Extension 4+ Good+ Abduction (C5) 4+ Good+ Adduction 5 Normal External Rotation 5 Normal Internal Rotation 5 Normal Elbow/Forearm Strength Elbow and Forearm Manual Muscle Testing Right Flexion (C6) 4- Good- Extension (C7) 4- Good- Pronation 4- Good- Supination 4- Good- Comments painful Left Flexion (C6) 5 Normal Extension (C7) 5 Normal PT-OP-N Lymphedema Start: 02/06/21 08:16 Freq: Status: Active Protocol: Document 02/15/21 13:53 [facility] (Rec: 02/15/21 17:07 [facility] [id number]) Lymphedema Measurements Upper Extremity Circumference Measurements Right Affected MCP 20.7 cm Dorsum of Hand 21.4 cm Wrist 18 cm 5 cm From Wrist Crease 20.8 cm 10 cm From Wrist Crease 25 cm 15 cm From Wrist Crease 29.1 cm 20 cm From Wrist Crease 32.4 cm 25 cm From Wrist Crease 38 cm 30 cm From Wrist Crease 41.8 cm 35 cm From Wrist Crease 48.6 cm 40 cm From Wrist Crease 51.6 cm 45 cm From Wrist Crease 53.3 cm PT-OP-Q Treatments Start: 02/06/21 08:16 Freq: Status: Active Protocol: Document 02/15/21 13:53 [facility] (Rec: 02/15/21 13:59 [facility] [id number]) Cardio Equipment Recumbent Stepper (Sci-Fit) Duration (Minutes) 6 Resistance 1 Seat Position 12 Other to facilitate lymphatic flow with Tubigrip on Therapeutic Exercises Sitting Exercises shoulder blade squeeze Reps/Minutes 5x sequential lymphedema ex Reps/Minutes 5x pulleys Sitting Exercise Name flex, scaption Reps/Minutes 10x Standing Exercises sequential lymphedema exercises Standing Exercise Name AROM neck, trunk, shoulders, elbows, forearm, wrist Reps/Minutes 10 reps ea Comments standing and sitting. Lymphedema Treatment Manual Lymphatic Drainage Location for right UE lymphedema Comments focus on AAA, AAI, ANURAG pathways for drainage Lymphedema Wrapping Body Location Right UE Materials Tubigrip size F forearm doubled, Size H (or size J doubled due to out of more H) upper arm, size D to right hand Other Tubigrip working well, assisted to don assuring proximal containment. No bandaging. Sequential Lymphedema Exercises Location right UE Duration 5 min Comments supine and sitting Compression Garment Assessment Compression Garment Assessment Details good fit and benefit from Tubigrip, more comfortable and stays up better for patient than bandaging. Patient Education Compression Garments Patient has consult scheduled 02/19/21 Sequential Lymphedema Exercises performed in standing and sitting Other Other encouraged use of [employer] [facility] videos for instruction and discussion of self-wrapping and given information for watching video of self-massage compression garments. PT-OP-T Assessment and Plan Start: 02/06/21 08:16 Freq: Status: Active Protocol: Document 02/15/21 13:53 [facility] (Rec: 02/15/21 13:59 [facility] [id number]) Physical Therapy Assessment Goals Four Impairment lacking regular exercise program Band Splicer Goal (LTG) Patient to be independent with HEP and aquatic exercise program for long-term fitness and pain management to include land and aquatic-based exercise LTG Duration 05/08/21 Three Impairment edema right UE Shelter Goal (LTG) Patient to be independent with all aspects of edema management to include skin care, manual lymphatic drainage, lymphedema bandaging and sequential lymphedema exercises, and be fit with appropriate compression garment right UE when lymphedema stable (no increase or decrease greater than 1 cm over the course of 1 week.) LTG Duration 05/08/21 Two Impairment Pain right UE due to complex regional pain synd Impairment pain 6/10 Band Splicer Goal (LTG) Decrease pain to no greater than 3/10 to allow patient to resume prior activities including crafting LTG Duration 05/08/21 One Impairment Lymphedema life impact scale 35% Impairment Function-limiting lymphedema Shelter Goal (LTG) Decrease lymphedema life impact scale to no greater than 15% as measure of improved activity tolerance, function, and quality of life. LTG Duration 05/08/21 Assessment Summary Assessment Measurements improved in forearm, increased around elbow, stable above elbow. Patient compliant with wearing Tubigrip for compression but it slides down at times, will do better with compression garment, most interested in compression alternative with velcro straps for easy donning and adjustability due to her chronic pain. Will also need gauntlet. Physical Therapy Plan Frequency and Duration Frequency of Treatment 12 visits Duration of Treatment 12 weeks Plan of Care Start Date 02/06/21 Plan of Care End Date 05/08/21 Therapeutic Interventions Therapeutic Interventions Aquatic Therapy,Lymphedema Management,Manual Therapy,Self -Care/Home Management,Soft Tissue Mobilization, Therapeutic Exercises Modalities Cold Pack/Ice Massage Next Visit Focus/Plan Next Note Type Treatment Note Next Visit Plan Further discussion of aquatic therapy option and safety protocols at [facility]. Continue lymphedema management, pain management.
--- NOTE | 2021-02-20 16:23 | PT.OTN ---
Current Diagnoses Complex regional pain syndrome I of upper limb, bilateral (02/20/21) Lymphedema, not elsewhere classified (02/20/21) Physical Therapy Treatment Note PT-OP-A Visit Information Start: 02/06/21 08:16 Freq: Status: Active Protocol: Document 02/20/21 13:01 [facility] (Rec: 02/20/21 14:30 [facility] [id number]) Out-Patient Physical Therapy Visit Information Visit Information Visit Type Treatment Note Visit Note 10 min late Visit Start Time 13:10 Visit Stop Time 14:15 Total Visit Minutes 65 Visit Number 5 Precautions Precautions Complex regional pain syndrome , depression PT-OP-B Current Condition Start: 02/06/21 08:16 Freq: Status: Active Protocol: Document 02/20/21 13:01 [facility] (Rec: 02/20/21 14:30 [facility] [id number]) Current Condition History of Current Condition Onset Date 10+ years Current Complaints worsening chronic pain and edema right UE History of Current Condition Patient has long history of edema right UE s/p injury to right UE with resulting complex regional pain syndrome . Reports recent worsening since last seen in PT. Now prescribed Hydrocodone, taking 5x/day, helps some with the pain, but when about due arm, neck, and back start hurting. Pain and lymphedema both have been worsening since last seen in PT. 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 Discharged from PT early last time due to insurance issues, never obtained compression garment. Not doing well with stress due to 's leukemia, brother earlier this year, as well as cat . Covid and 's illness have resulted in no in person contact with daughters or children. PT order at this time for PT to include aquatic PT and lymphatic massage and treatment. Patient sees psychologist and psychiatrist for severe depression. 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 Prior short term PT. PT-OP-C Subjective Start: 02/06/21 08:16 Freq: Status: Active Protocol: Document 02/20/21 13:01 [facility] (Rec: 02/20/21 14:30 [facility] [id number]) OP-PT Subjective Patient Comments Patient Comments Saw Rekha at [facility] yesterday, she recommended standart compression sleeve, asked for compression level and whether glove needed or not. Elbow hurting a little more. Didn't wear Tubigrip as much yesterday and couldn't find tubigrip for hand this am. Patient Reported Progress Worse PT-OP-F Manual Assessment Start: 02/06/21 08:16 Freq: Status: Active Protocol: Document 02/06/21 13:46 [facility] (Rec: 02/07/21 17:26 [facility] [id number]) Manual Assessments Soft Tissue Assessment Soft Tissue Mobility Assessment decreased scar mobility right elbow, no increased warmth or redness or signs of infection right UE. PT-OP-J Posture/Palpation/Skin Start: 02/06/21 08:16 Freq: Status: Active Protocol: Document 02/06/21 13:46 [facility] (Rec: 02/07/21 17:26 [facility] [id number]) Posture Evaluation Position Sitting Head/C-Spine Posture Forward Head T-Spine Posture Increased Kyphosis Shoulder Posture (L) Rounded,(R) Rounded Scapula Posture (L) Protracted,(R) Protracted Arm Posture (L) Internally Rotated,(R) Internally Rotated PT-OP-K Range of Motion Start: 02/06/21 08:16 Freq: Status: Active Protocol: Document 02/06/21 13:46 [facility] (Rec: 02/07/21 17:26 [facility] [id number]) Cervical Spine Range of Motion Cervical Spine Active ROM Limitations Soft Tissue Tightness Comments mod tightness al motions Shoulder Goniometric Range of Motion Shoulder Right Active Shoulder ROM WFL No Testing Position Sitting Flexion 125 Extension 10 Abduction 120 External Rotation at 45 degrees 40 Abduction Internal Rotation Behind Back (text) L5 Left Active Shoulder ROM WFL Yes Shoulder ROM Limitations Shoulder ROM Limitations Soft Tissue Tightness,Pain, Swelling Elbow/Forearm Range of Motion Elbow/Forearm Right Active Elbow/Forearm ROM WFL No Elbow Flexion (degrees) 135 Elbow Extension (degrees) 5 Pronation (degrees) 75 Supination (degrees) 45 Left Active Elbow/Forearm ROM WFL Yes PT-OP-M Strength Start: 02/06/21 08:16 Freq: Status: Active Protocol: Document 02/06/21 13:46 [facility] (Rec: 02/07/21 17:26 [facility] [id number]) Shoulder Strength Shoulder Manual Muscle Testing Right Flexion 4- Good- Extension 4- Good- Abduction (C5) 4- Good- External Rotation 4- Good- Internal Rotation 4- Good- Comments painful Left Flexion 4+ Good+ Extension 4+ Good+ Abduction (C5) 4+ Good+ Adduction 5 Normal External Rotation 5 Normal Internal Rotation 5 Normal Elbow/Forearm Strength Elbow and Forearm Manual Muscle Testing Right Flexion (C6) 4- Good- Extension (C7) 4- Good- Pronation 4- Good- Supination 4- Good- Comments painful Left Flexion (C6) 5 Normal Extension (C7) 5 Normal PT-OP-N Lymphedema Start: 02/06/21 08:16 Freq: Status: Active Protocol: Document 02/20/21 13:01 [facility] (Rec: 02/20/21 16:20 [facility] [id number]) Lymphedema Measurements Upper Extremity Circumference Measurements Right Affected MCP 21.2 cm Dorsum of Hand 22.3 cm Wrist 18.5 cm 5 cm From Wrist Crease 20.8 cm 10 cm From Wrist Crease 25.1 cm 15 cm From Wrist Crease 30.7 cm 20 cm From Wrist Crease 33.3 cm 25 cm From Wrist Crease 39.9 cm 30 cm From Wrist Crease 40.6 cm 35 cm From Wrist Crease 48 cm 40 cm From Wrist Crease 52.2 cm 45 cm From Wrist Crease 54 cm Elbow Joint 34.2 cm Axilla 62 cm PT-OP-Q Treatments Start: 02/06/21 08:16 Freq: Status: Active Protocol: Document 02/20/21 13:01 [facility] (Rec: 02/20/21 14:30 [facility] [id number]) Cardio Equipment Recumbent Stepper (Sci-Fit) Duration (Minutes) 8 Resistance 1 Seat Position 12 Other to facilitate lymphatic flow with Tubigrip on Therapeutic Exercises Sitting Exercises pulleys Sitting Exercise Name flex, scaption Reps/Minutes 10x Standing Exercises sequential lymphedema exercises Standing Exercise Name AROM neck, trunk, shoulders, elbows, forearm, wrist Reps/Minutes 10 reps ea Comments standing and sitting. Manual Therapy Treatment Soft Tissue Mobilization triceps Body Location right triceps Mobilization Type Myofascial Release UT, c/s, periscapular Body Location right UE Mobilization Type Myofascial Release,Rolling, Strumming Body Position Hooklying Lymphedema Treatment Manual Lymphatic Drainage Location for right UE lymphedema Comments focus on AAA, AAI, ANURAG pathways for drainage Lymphedema Wrapping Body Location Right UE Materials Tubigrip size F forearm doubled, Size H (or size J doubled due to out of more H) upper arm, size D to right hand Other Tubigrip working well, assisted to don assuring proximal containment. No bandaging. Sequential Lymphedema Exercises Location right UE Duration 5 min Comments sitting Compression Garment Assessment Compression Garment Assessment Details emailed [facility] regarding 20-30 mm Hg and yes to gauntlet with short fingers PT-OP-T Assessment and Plan Start: 02/06/21 08:16 Freq: Status: Active Protocol: Document 02/20/21 13:01 [facility] (Rec: 02/20/21 14:30 [facility] [id number]) Physical Therapy Assessment Goals Four Impairment lacking regular exercise program Custodial Goal (LTG) Patient to be independent with HEP and aquatic exercise program for long-term fitness and pain management to include land and aquatic-based exercise LTG Duration 05/08/21 Three Impairment edema right UE Custodial Goal (LTG) Patient to be independent with all aspects of edema management to include skin care, manual lymphatic drainage, lymphedema bandaging and sequential lymphedema exercises, and be fit with appropriate compression garment right UE when lymphedema stable (no increase or decrease greater than 1 cm over the course of 1 week.) LTG Duration 05/08/21 Two Impairment Pain right UE due to complex regional pain synd Impairment pain 6/10 Inspector Aluminum Boat Goal (LTG) Decrease pain to no greater than 3/10 to allow patient to resume prior activities including crafting LTG Duration 05/08/21 One Impairment Lymphedema life impact scale 35% Impairment Function-limiting lymphedema Inspector Aluminum Boat Goal (LTG) Decrease lymphedema life impact scale to no greater than 15% as measure of improved activity tolerance, function, and quality of life. LTG Duration 05/08/21 Assessment Summary Assessment Patient had good consult at [facility] yesterday, further information emailed by PT regarding compression level and yes to glove with short fingers. Myofascial tightness right triceps may be contributing to patient's right elbow pain; increased emphasis today on myofascial release techniques right UE. Circumferential measurements increased after patient not wearing Tubigrip as much, indicator of how helpful compression garment will be. Physical Therapy Plan Frequency and Duration Frequency of Treatment 12 visits Duration of Treatment 12 weeks Plan of Care Start Date 02/06/21 Plan of Care End Date 05/08/21 Therapeutic Interventions Therapeutic Interventions Aquatic Therapy,Lymphedema Management,Manual Therapy,Self -Care/Home Management,Soft Tissue Mobilization, Therapeutic Exercises Modalities Cold Pack/Ice Massage Next Visit Focus/Plan Next Note Type Treatment Note Next Visit Plan Continue lymphedema management , problem solve compression until obtains compression sleeve, work on pain management.
--- NOTE | 2021-02-22 16:43 | PT.OTN ---
Current Diagnoses Complex regional pain syndrome I of upper limb, bilateral (02/22/21) Lymphedema, not elsewhere classified (02/22/21) Physical Therapy Treatment Note PT-OP-A Visit Information Start: 02/06/21 08:16 Freq: Status: Active Protocol: Document 02/22/21 12:58 [facility] (Rec: 02/22/21 13:21 [facility] [id number]) Out-Patient Physical Therapy Visit Information Visit Information Visit Type Treatment Note Visit Start Time 13:00 Visit Stop Time 14:16 Total Visit Minutes 66 Visit Number 6 Precautions Precautions Complex regional pain syndrome , depression PT-OP-B Current Condition Start: 02/06/21 08:16 Freq: Status: Active Protocol: Document 02/22/21 12:58 [facility] (Rec: 02/22/21 13:21 [facility] [id number]) Current Condition History of Current Condition Onset Date 10+ years Current Complaints worsening chronic pain and edema right UE History of Current Condition Patient has long history of edema right UE s/p injury to right UE with resulting complex regional pain syndrome . Reports recent worsening since last seen in PT. Now prescribed Hydrocodone, taking 5x/day, helps some with the pain, but when about due arm, neck, and back start hurting. Pain and lymphedema both have been worsening since last seen in PT. 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 Discharged from PT early last time due to insurance issues, never obtained compression garment. Not doing well with stress due to 's leukemia, brother earlier this year, as well as cat . Covid and 's illness have resulted in no in person contact with daughters or children. PT order at this time for PT to include aquatic PT and lymphatic massage and treatment. Patient sees psychologist and psychiatrist for severe depression. 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 Prior short term PT. Treatment Goals Patient/Caregiver Goals Decrease pain, decrease edema. PT-OP-C Subjective Start: 02/06/21 08:16 Freq: Status: Active Protocol: Document 02/22/21 12:58 [facility] (Rec: 02/22/21 13:21 [facility] [id number]) OP-PT Subjective Patient Comments Patient Comments C/o Tyubigrip rolling down on arm, received glove that she ordered online, 2 pack for $8 not sure of brand or compression level; long finger glove which she feels helps with her hand swelling Patient Reported Progress Improving PT-OP-F Manual Assessment Start: 02/06/21 08:16 Freq: Status: Active Protocol: Document 02/06/21 13:46 [facility] (Rec: 02/07/21 17:26 [facility] [id number]) Manual Assessments Soft Tissue Assessment Soft Tissue Mobility Assessment decreased scar mobility right elbow, no increased warmth or redness or signs of infection right UE. PT-OP-J Posture/Palpation/Skin Start: 02/06/21 08:16 Freq: Status: Active Protocol: Document 02/06/21 13:46 [facility] (Rec: 02/07/21 17:26 [facility] [id number]) Posture Evaluation Position Sitting Head/C-Spine Posture Forward Head T-Spine Posture Increased Kyphosis Shoulder Posture (L) Rounded,(R) Rounded Scapula Posture (L) Protracted,(R) Protracted Arm Posture (L) Internally Rotated,(R) Internally Rotated PT-OP-K Range of Motion Start: 02/06/21 08:16 Freq: Status: Active Protocol: Document 02/06/21 13:46 [facility] (Rec: 02/07/21 17:26 [facility] [id number]) Cervical Spine Range of Motion Cervical Spine Active ROM Limitations Soft Tissue Tightness Comments mod tightness al motions Shoulder Goniometric Range of Motion Shoulder Right Active Shoulder ROM WFL No Testing Position Sitting Flexion 125 Extension 10 Abduction 120 External Rotation at 45 degrees 40 Abduction Internal Rotation Behind Back (text) L5 Left Active Shoulder ROM WFL Yes Shoulder ROM Limitations Shoulder ROM Limitations Soft Tissue Tightness,Pain, Swelling Elbow/Forearm Range of Motion Elbow/Forearm Right Active Elbow/Forearm ROM WFL No Elbow Flexion (degrees) 135 Elbow Extension (degrees) 5 Pronation (degrees) 75 Supination (degrees) 45 Left Active Elbow/Forearm ROM WFL Yes PT-OP-M Strength Start: 02/06/21 08:16 Freq: Status: Active Protocol: Document 02/06/21 13:46 [facility] (Rec: 02/07/21 17:26 [facility] [id number]) Shoulder Strength Shoulder Manual Muscle Testing Right Flexion 4- Good- Extension 4- Good- Abduction (C5) 4- Good- External Rotation 4- Good- Internal Rotation 4- Good- Comments painful Left Flexion 4+ Good+ Extension 4+ Good+ Abduction (C5) 4+ Good+ Adduction 5 Normal External Rotation 5 Normal Internal Rotation 5 Normal Elbow/Forearm Strength Elbow and Forearm Manual Muscle Testing Right Flexion (C6) 4- Good- Extension (C7) 4- Good- Pronation 4- Good- Supination 4- Good- Comments painful Left Flexion (C6) 5 Normal Extension (C7) 5 Normal PT-OP-N Lymphedema Start: 02/06/21 08:16 Freq: Status: Active Protocol: Document 02/20/21 13:01 [facility] (Rec: 02/20/21 16:20 [facility] [id number]) Lymphedema Measurements Upper Extremity Circumference Measurements Right Affected MCP 21.2 cm Dorsum of Hand 22.3 cm Wrist 18.5 cm 5 cm From Wrist Crease 20.8 cm 10 cm From Wrist Crease 25.1 cm 15 cm From Wrist Crease 30.7 cm 20 cm From Wrist Crease 33.3 cm 25 cm From Wrist Crease 39.9 cm 30 cm From Wrist Crease 40.6 cm 35 cm From Wrist Crease 48 cm 40 cm From Wrist Crease 52.2 cm 45 cm From Wrist Crease 54 cm Elbow Joint 34.2 cm Axilla 62 cm PT-OP-Q Treatments Start: 02/06/21 08:16 Freq: Status: Active Protocol: Document 02/22/21 12:58 [facility] (Rec: 02/22/21 13:21 [facility] [id number]) Cardio Equipment Recumbent Stepper (Sci-Fit) Duration (Minutes) 10 Resistance 1 Seat Position 12 Other to facilitate lymphatic flow with Tubigrip on Therapeutic Exercises Sitting Exercises shoulder blade squeeze Reps/Minutes 5x pulleys Sitting Exercise Name flex, scaption Reps/Minutes 10x Manual Therapy Treatment Soft Tissue Mobilization triceps Body Location right triceps Mobilization Type Myofascial Release UT, c/s, periscapular Body Location right UE Mobilization Type Myofascial Release,Rolling, Strumming Body Position Hooklying Lymphedema Treatment Manual Lymphatic Drainage Location for right UE lymphedema Comments focus on AAA, AAI, ANURAG pathways for drainage Lymphedema Wrapping Body Location Right UE Materials Tubigrip size F forearm doubled, size J doubled upper arm, glove to right hand Other Tubigrip working well, assisted to don assuring proximal containment. No bandaging as patient doesn't tolerate Sequential Lymphedema Exercises Location right UE Duration 5 min Comments sitting Compression Garment Assessment Compression Garment Assessment Details emailed to change to long fingers on gauntlet/glove as patient tolerating the long fingered glove well and will provided better compression. Other Other Continue to encourage use of [employer] [facility] videos for instruction and discussion of self-wrapping and given information for watching video of self-massage compression garments. PT-OP-T Assessment and Plan Start: 02/06/21 08:16 Freq: Status: Active Protocol: Document 02/22/21 12:58 [facility] (Rec: 02/22/21 13:21 [facility] [id number]) Physical Therapy Assessment Goals Four Impairment lacking regular exercise program Distillation Operator Goal (LTG) Patient to be independent with HEP and aquatic exercise program for long-term fitness and pain management to include land and aquatic-based exercise LTG Duration 05/08/21 Three Impairment edema right UE Distillation Operator Goal (LTG) Patient to be independent with all aspects of edema management to include skin care, manual lymphatic drainage, lymphedema bandaging and sequential lymphedema exercises, and be fit with appropriate compression garment right UE when lymphedema stable (no increase or decrease greater than 1 cm over the course of 1 week.) LTG Duration 05/08/21 Two Impairment Pain right UE due to complex regional pain synd Impairment pain 6/10 Distillation Operator Goal (LTG) Decrease pain to no greater than 3/10 to allow patient to resume prior activities including crafting LTG Duration 05/08/21 One Impairment Lymphedema life impact scale 35% Impairment Function-limiting lymphedema Distillation Operator Goal (LTG) Decrease lymphedema life impact scale to no greater than 15% as measure of improved activity tolerance, function, and quality of life. LTG Duration 05/08/21 Assessment Summary Assessment New Tubigrip issued as quickly wears out, and patient still doesn't tolerate bandaging. MFR beneficial in improving soft tissue mobility especially in distal tricep, patient instructed in self- massage with ball and demonstrated good understanding. She is compliant with HEP. Physical Therapy Plan Frequency and Duration Frequency of Treatment 12 visits Duration of Treatment 12 weeks Plan of Care Start Date 02/06/21 Plan of Care End Date 05/08/21 Therapeutic Interventions Therapeutic Interventions Aquatic Therapy,Lymphedema Management,Manual Therapy,Self -Care/Home Management,Soft Tissue Mobilization, Therapeutic Exercises Modalities Cold Pack/Ice Massage Next Visit Focus/Plan Next Note Type Treatment Note Next Visit Plan Continue lymphedema management , problem solve compression until obtains compression sleeve, work on pain management.
--- NOTE | 2021-03-06 14:19 | PT.OTN ---
Current Diagnoses Complex regional pain syndrome I of upper limb, bilateral (03/06/21) Lymphedema, not elsewhere classified (03/06/21) Physical Therapy Treatment Note PT-OP-A Visit Information Start: 02/06/21 08:16 Freq: Status: Active Protocol: Document 03/06/21 12:58 [facility] (Rec: 03/06/21 14:19 [facility] [id number]) Out-Patient Physical Therapy Visit Information Visit Information Visit Type Treatment Note Visit Start Time 13:00 Visit Stop Time 14:16 Total Visit Minutes 66 Visit Number 7 Precautions Precautions Complex regional pain syndrome , depression PT-OP-B Current Condition Start: 02/06/21 08:16 Freq: Status: Active Protocol: Document 03/06/21 12:58 [facility] (Rec: 03/06/21 14:19 [facility] [id number]) Current Condition History of Current Condition Onset Date 10+ years Current Complaints worsening chronic pain and edema right UE History of Current Condition Patient has long history of edema right UE s/p injury to right UE with resulting complex regional pain syndrome . Reports recent worsening since last seen in PT. Now prescribed Hydrocodone, taking 5x/day, helps some with the pain, but when about due arm, neck, and back start hurting. Pain and lymphedema both have been worsening since last seen in PT. 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 Discharged from PT early last time due to insurance issues, never obtained compression garment. Not doing well with stress due to 's leukemia, brother earlier this year, as well as cat . Covid and 's illness have resulted in no in person contact with daughters or children. PT order at this time for PT to include aquatic PT and lymphatic massage and treatment. Patient sees psychologist and psychiatrist for severe depression. 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 Prior short term PT. PT-OP-C Subjective Start: 02/06/21 08:16 Freq: Status: Active Protocol: Document 03/06/21 12:58 [facility] (Rec: 03/06/21 14:19 [facility] [id number]) OP-PT Subjective Patient Comments Patient Comments No new c/o, had to cancel due to other medical appointments. Prescribed new med usually used for ADHD, and to get me moving and I think it's helped a bit. PT-OP-F Manual Assessment Start: 02/06/21 08:16 Freq: Status: Active Protocol: Document 02/06/21 13:46 [facility] (Rec: 02/07/21 17:26 [facility] [id number]) Manual Assessments Soft Tissue Assessment Soft Tissue Mobility Assessment decreased scar mobility right elbow, no increased warmth or redness or signs of infection right UE. PT-OP-J Posture/Palpation/Skin Start: 02/06/21 08:16 Freq: Status: Active Protocol: Document 02/06/21 13:46 [facility] (Rec: 02/07/21 17:26 [facility] [id number]) Posture Evaluation Position Sitting Head/C-Spine Posture Forward Head T-Spine Posture Increased Kyphosis Shoulder Posture (L) Rounded,(R) Rounded Scapula Posture (L) Protracted,(R) Protracted Arm Posture (L) Internally Rotated,(R) Internally Rotated PT-OP-K Range of Motion Start: 02/06/21 08:16 Freq: Status: Active Protocol: Document 02/06/21 13:46 [facility] (Rec: 02/07/21 17:26 [facility] [id number]) Cervical Spine Range of Motion Cervical Spine Active ROM Limitations Soft Tissue Tightness Comments mod tightness al motions Shoulder Goniometric Range of Motion Shoulder Right Active Shoulder ROM WFL No Testing Position Sitting Flexion 125 Extension 10 Abduction 120 External Rotation at 45 degrees 40 Abduction Internal Rotation Behind Back (text) L5 Left Active Shoulder ROM WFL Yes Shoulder ROM Limitations Shoulder ROM Limitations Soft Tissue Tightness,Pain, Swelling Elbow/Forearm Range of Motion Elbow/Forearm Right Active Elbow/Forearm ROM WFL No Elbow Flexion (degrees) 135 Elbow Extension (degrees) 5 Pronation (degrees) 75 Supination (degrees) 45 Left Active Elbow/Forearm ROM WFL Yes PT-OP-M Strength Start: 02/06/21 08:16 Freq: Status: Active Protocol: Document 02/06/21 13:46 [facility] (Rec: 02/07/21 17:26 [facility] [id number]) Shoulder Strength Shoulder Manual Muscle Testing Right Flexion 4- Good- Extension 4- Good- Abduction (C5) 4- Good- External Rotation 4- Good- Internal Rotation 4- Good- Comments painful Left Flexion 4+ Good+ Extension 4+ Good+ Abduction (C5) 4+ Good+ Adduction 5 Normal External Rotation 5 Normal Internal Rotation 5 Normal Elbow/Forearm Strength Elbow and Forearm Manual Muscle Testing Right Flexion (C6) 4- Good- Extension (C7) 4- Good- Pronation 4- Good- Supination 4- Good- Comments painful Left Flexion (C6) 5 Normal Extension (C7) 5 Normal PT-OP-N Lymphedema Start: 02/06/21 08:16 Freq: Status: Active Protocol: Document 02/20/21 13:01 [facility] (Rec: 02/20/21 16:20 [facility] [id number]) Lymphedema Measurements Upper Extremity Circumference Measurements Right Affected MCP 21.2 cm Dorsum of Hand 22.3 cm Wrist 18.5 cm 5 cm From Wrist Crease 20.8 cm 10 cm From Wrist Crease 25.1 cm 15 cm From Wrist Crease 30.7 cm 20 cm From Wrist Crease 33.3 cm 25 cm From Wrist Crease 39.9 cm 30 cm From Wrist Crease 40.6 cm 35 cm From Wrist Crease 48 cm 40 cm From Wrist Crease 52.2 cm 45 cm From Wrist Crease 54 cm Elbow Joint 34.2 cm Axilla 62 cm PT-OP-Q Treatments Start: 02/06/21 08:16 Freq: Status: Active Protocol: Document 03/06/21 12:58 [facility] (Rec: 03/06/21 14:19 [facility] [id number]) Cardio Equipment Recumbent Stepper (Sci-Fit) Duration (Minutes) 10 Resistance 1.5 Seat Position 12 Other to facilitate lymphatic flow with Tubigrip on Therapeutic Exercises Sidelying Exercises open book Reps/Minutes 10x Sitting Exercises forearm pron/sup Resistance 1# Reps/Minutes 10x Standing Exercises biceps Equipment Used L2 TB Reps/Minutes 10x triceps Equipment Used L2 TB Reps/Minutes 10x row Equipment Used L2 TB Reps/Minutes 10x sequential lymphedema exercises Standing Exercise Name AROM neck, trunk, shoulders, elbows, forearm, wrist Reps/Minutes 10 reps ea Comments standing and sitting. Manual Therapy Treatment Soft Tissue Mobilization triceps Body Location right triceps Mobilization Type Myofascial Release Lymphedema Treatment Manual Lymphatic Drainage Location for right UE lymphedema Comments focus on AAA, AAI, ANURAG pathways for drainage Lymphedema Wrapping Body Location Right UE Materials Tubigrip size F forearm doubled, size J doubled upper arm, glove to right hand Other Tubigrip working well, assisted to don assuring proximal containment. No bandaging as patient doesn't tolerate Sequential Lymphedema Exercises Location right UE Duration 5 min Comments sitting Compression Garment Assessment Compression Garment Assessment Details still hasn't received yet, patient to call [facility]. Other Other Continue to encourage use of [employer] [facility] videos for instruction and discussion of self-wrapping and given information for watching video of self-massage compression garments. PT-OP-T Assessment and Plan Start: 02/06/21 08:16 Freq: Status: Active Protocol: Document 03/06/21 12:58 [facility] (Rec: 03/06/21 14:19 [facility] [id number]) Physical Therapy Assessment Goals Four Impairment lacking regular exercise program Product Support Rep Goal (LTG) Patient to be independent with HEP and aquatic exercise program for long-term fitness and pain management to include land and aquatic-based exercise LTG Duration 05/08/21 Three Impairment edema right UE Skilled Nursing Goal (LTG) Patient to be independent with all aspects of edema management to include skin care, manual lymphatic drainage, lymphedema bandaging and sequential lymphedema exercises, and be fit with appropriate compression garment right UE when lymphedema stable (no increase or decrease greater than 1 cm over the course of 1 week.) LTG Duration 05/08/21 Two Impairment Pain right UE due to complex regional pain synd Impairment pain 6/10 Skilled Nursing Goal (LTG) Decrease pain to no greater than 3/10 to allow patient to resume prior activities including crafting LTG Duration 05/08/21 One Impairment Lymphedema life impact scale 35% Impairment Function-limiting lymphedema Product Support Rep Goal (LTG) Decrease lymphedema life impact scale to no greater than 15% as measure of improved activity tolerance, function, and quality of life. LTG Duration 05/08/21 Assessment Summary Assessment Patient more compliant to HEP. Measurements decreased in hand, increased in UE. Awaitiing new compression garments. Missed PT for 2 weeks. Physical Therapy Plan Frequency and Duration Frequency of Treatment 12 visits Duration of Treatment 12 weeks Plan of Care Start Date 02/06/21 Plan of Care End Date 05/08/21 Therapeutic Interventions Therapeutic Interventions Aquatic Therapy,Lymphedema Management,Manual Therapy,Self -Care/Home Management,Soft Tissue Mobilization, Therapeutic Exercises Modalities Cold Pack/Ice Massage Next Visit Focus/Plan Next Note Type Treatment Note Next Visit Plan Continue lymphedema management , problem solve compression until obtains compression sleeve, work on pain management.
--- NOTE | 2021-03-08 14:31 | PT.OTN ---
Current Diagnoses Complex regional pain syndrome I of upper limb, bilateral (03/08/21) Lymphedema, not elsewhere classified (03/08/21) Physical Therapy Treatment Note PT-OP-A Visit Information Start: 02/06/21 08:16 Freq: Status: Active Protocol: Document 03/08/21 13:01 [facility] (Rec: 03/08/21 13:19 [facility] [id number]) Out-Patient Physical Therapy Visit Information Visit Information Visit Type Treatment Note Visit Start Time 13:00 Visit Stop Time 14:16 Total Visit Minutes 70 Visit Number 8 Precautions Precautions Complex regional pain syndrome , depression PT-OP-B Current Condition Start: 02/06/21 08:16 Freq: Status: Active Protocol: Document 03/08/21 13:01 [facility] (Rec: 03/08/21 13:19 [facility] [id number]) Current Condition History of Current Condition Onset Date 10+ years Current Complaints worsening chronic pain and edema right UE History of Current Condition Patient has long history of edema right UE s/p injury to right UE with resulting complex regional pain syndrome . Reports recent worsening since last seen in PT. Now prescribed Hydrocodone, taking 5x/day, helps some with the pain, but when about due arm, neck, and back start hurting. Pain and lymphedema both have been worsening since last seen in PT. 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 Discharged from PT early last time due to insurance issues, never obtained compression garment. Not doing well with stress due to 's leukemia, brother earlier this year, as well as cat . Covid and 's illness have resulted in no in person contact with daughters or children. PT order at this time for PT to include aquatic PT and lymphatic massage and treatment. Patient sees psychologist and psychiatrist for severe depression. 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 Prior short term PT. PT-OP-C Subjective Start: 02/06/21 08:16 Freq: Status: Active Protocol: Document 03/08/21 13:01 [facility] (Rec: 03/08/21 13:19 [facility] [id number]) OP-PT Subjective Patient Comments Patient Comments Reports since last night having sorness in shoulder and down to hand on right, not sure what I did. Thinks maybe she slept wrong on it. Reports left a message at [facility] regarding compression sleeve; hasn't received it yet or heard anything. Had appointment with dietary today prior to PT. PT-OP-F Manual Assessment Start: 02/06/21 08:16 Freq: Status: Active Protocol: Document 02/06/21 13:46 [facility] (Rec: 02/07/21 17:26 [facility] [id number]) Manual Assessments Soft Tissue Assessment Soft Tissue Mobility Assessment decreased scar mobility right elbow, no increased warmth or redness or signs of infection right UE. PT-OP-J Posture/Palpation/Skin Start: 02/06/21 08:16 Freq: Status: Active Protocol: Document 02/06/21 13:46 [facility] (Rec: 02/07/21 17:26 [facility] [id number]) Posture Evaluation Position Sitting Head/C-Spine Posture Forward Head T-Spine Posture Increased Kyphosis Shoulder Posture (L) Rounded,(R) Rounded Scapula Posture (L) Protracted,(R) Protracted Arm Posture (L) Internally Rotated,(R) Internally Rotated PT-OP-K Range of Motion Start: 02/06/21 08:16 Freq: Status: Active Protocol: Document 02/06/21 13:46 [facility] (Rec: 02/07/21 17:26 [facility] [id number]) Cervical Spine Range of Motion Cervical Spine Active ROM Limitations Soft Tissue Tightness Comments mod tightness al motions Shoulder Goniometric Range of Motion Shoulder Right Active Shoulder ROM WFL No Testing Position Sitting Flexion 125 Extension 10 Abduction 120 External Rotation at 45 degrees 40 Abduction Internal Rotation Behind Back (text) L5 Left Active Shoulder ROM WFL Yes Shoulder ROM Limitations Shoulder ROM Limitations Soft Tissue Tightness,Pain, Swelling Elbow/Forearm Range of Motion Elbow/Forearm Right Active Elbow/Forearm ROM WFL No Elbow Flexion (degrees) 135 Elbow Extension (degrees) 5 Pronation (degrees) 75 Supination (degrees) 45 Left Active Elbow/Forearm ROM WFL Yes PT-OP-M Strength Start: 02/06/21 08:16 Freq: Status: Active Protocol: Document 02/06/21 13:46 [facility] (Rec: 02/07/21 17:26 [facility] [id number]) Shoulder Strength Shoulder Manual Muscle Testing Right Flexion 4- Good- Extension 4- Good- Abduction (C5) 4- Good- External Rotation 4- Good- Internal Rotation 4- Good- Comments painful Left Flexion 4+ Good+ Extension 4+ Good+ Abduction (C5) 4+ Good+ Adduction 5 Normal External Rotation 5 Normal Internal Rotation 5 Normal Elbow/Forearm Strength Elbow and Forearm Manual Muscle Testing Right Flexion (C6) 4- Good- Extension (C7) 4- Good- Pronation 4- Good- Supination 4- Good- Comments painful Left Flexion (C6) 5 Normal Extension (C7) 5 Normal PT-OP-N Lymphedema Start: 02/06/21 08:16 Freq: Status: Active Protocol: Document 02/20/21 13:01 [facility] (Rec: 02/20/21 16:20 [facility] [id number]) Lymphedema Measurements Upper Extremity Circumference Measurements Right Affected MCP 21.2 cm Dorsum of Hand 22.3 cm Wrist 18.5 cm 5 cm From Wrist Crease 20.8 cm 10 cm From Wrist Crease 25.1 cm 15 cm From Wrist Crease 30.7 cm 20 cm From Wrist Crease 33.3 cm 25 cm From Wrist Crease 39.9 cm 30 cm From Wrist Crease 40.6 cm 35 cm From Wrist Crease 48 cm 40 cm From Wrist Crease 52.2 cm 45 cm From Wrist Crease 54 cm Elbow Joint 34.2 cm Axilla 62 cm PT-OP-Q Treatments Start: 02/06/21 08:16 Freq: Status: Active Protocol: Document 03/08/21 13:01 [facility] (Rec: 03/08/21 13:19 [facility] [id number]) Cardio Equipment Recumbent Stepper (Sci-Fit) Duration (Minutes) 10 Resistance 1.0 Seat Position 12 Other to facilitate lymphatic flow with Tubigrip on Therapeutic Exercises Sidelying Exercises open book Reps/Minutes 10x Sitting Exercises forearm pron/sup Resistance 1# Reps/Minutes 10x Standing Exercises biceps Equipment Used L2 TB Reps/Minutes 10x triceps Equipment Used L2 TB Reps/Minutes 10x row Equipment Used L2 TB Reps/Minutes 10x sequential lymphedema exercises Standing Exercise Name AROM neck, trunk, shoulders, elbows, forearm, wrist Reps/Minutes 10 reps ea Comments standing and sitting. Manual Therapy Treatment Soft Tissue Mobilization triceps Body Location right triceps Mobilization Type Myofascial Release UT, c/s, periscapular Body Location right UE Mobilization Type Myofascial Release,Rolling, Strumming Body Position Hooklying Lymphedema Treatment Manual Lymphatic Drainage Location for right UE lymphedema Comments focus on AAA, AAI, ANURAG pathways for drainage Lymphedema Wrapping Body Location Right UE Materials patient glove and size F Tubigrip right hand, size F Tricofix, Artiflex and Comprilan right UE. Sequential Lymphedema Exercises Location right UE Duration 5 min Comments sitting Compression Garment Assessment Compression Garment Assessment Details awaiting Other Other Continue to encourage use of [employer] [facility] videos for instruction and discussion of self-wrapping and given information for watching video of self-massage compression garments. PT-OP-T Assessment and Plan Start: 02/06/21 08:16 Freq: Status: Active Protocol: Document 03/08/21 13:01 [facility] (Rec: 03/08/21 13:19 [facility] [id number]) Physical Therapy Assessment Goals Four Impairment lacking regular exercise program Mcfp Goal (LTG) Patient to be independent with HEP and aquatic exercise program for long-term fitness and pain management to include land and aquatic-based exercise LTG Duration 05/08/21 Three Impairment edema right UE Trench Digger Goal (LTG) Patient to be independent with all aspects of edema management to include skin care, manual lymphatic drainage, lymphedema bandaging and sequential lymphedema exercises, and be fit with appropriate compression garment right UE when lymphedema stable (no increase or decrease greater than 1 cm over the course of 1 week.) LTG Duration 05/08/21 Two Impairment Pain right UE due to complex regional pain synd Impairment pain 6/10 Trench Digger Goal (LTG) Decrease pain to no greater than 3/10 to allow patient to resume prior activities including crafting LTG Duration 05/08/21 One Impairment Lymphedema life impact scale 35% Impairment Function-limiting lymphedema Mcfp Goal (LTG) Decrease lymphedema life impact scale to no greater than 15% as measure of improved activity tolerance, function, and quality of life. LTG Duration 05/08/21 Assessment Summary Assessment Patient able to tolerate compression bandaging; did trial today, patient to remove if too painful. Physical Therapy Plan Frequency and Duration Frequency of Treatment 12 visits Duration of Treatment 12 weeks Plan of Care Start Date 02/06/21 Plan of Care End Date 05/08/21 Therapeutic Interventions Therapeutic Interventions Aquatic Therapy,Lymphedema Management,Manual Therapy,Self -Care/Home Management,Soft Tissue Mobilization, Therapeutic Exercises Modalities Cold Pack/Ice Massage Next Visit Focus/Plan Next Note Type Treatment Note Next Visit Plan Continue lymphedema management , problem solve compression until obtains compression sleeve, work on pain management.
--- NOTE | 2021-03-13 14:27 | PT.OTN ---
Current Diagnoses Complex regional pain syndrome I of upper limb, bilateral (03/13/21) Lymphedema, not elsewhere classified (03/13/21) Physical Therapy Treatment Note PT-OP-A Visit Information Start: 02/06/21 08:16 Freq: Status: Active Protocol: Document 03/13/21 14:17 [facility] (Rec: 03/13/21 14:27 [facility] [id number]) Out-Patient Physical Therapy Visit Information Visit Information Visit Type Treatment Note Visit Start Time 13:00 Visit Stop Time 14:20 Total Visit Minutes 80 Visit Number 9 Precautions Precautions Complex regional pain syndrome , depression PT-OP-B Current Condition Start: 02/06/21 08:16 Freq: Status: Active Protocol: Document 03/13/21 14:17 [facility] (Rec: 03/13/21 14:27 [facility] [id number]) Current Condition History of Current Condition Onset Date 10+ years Current Complaints worsening chronic pain and edema right UE History of Current Condition Patient has long history of edema right UE s/p injury to right UE with resulting complex regional pain syndrome . Reports recent worsening since last seen in PT. Now prescribed Hydrocodone, taking 5x/day, helps some with the pain, but when about due arm, neck, and back start hurting. Pain and lymphedema both have been worsening since last seen in PT. 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 Discharged from PT early last time due to insurance issues, never obtained compression garment. Not doing well with stress due to 's leukemia, brother earlier this year, as well as cat . Covid and 's illness have resulted in no in person contact with daughters or children. PT order at this time for PT to include aquatic PT and lymphatic massage and treatment. Patient sees psychologist and psychiatrist for severe depression. 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 Prior short term PT. PT-OP-C Subjective Start: 02/06/21 08:16 Freq: Status: Active Protocol: Document 03/13/21 14:17 [facility] (Rec: 03/13/21 14:27 [facility] [id number]) OP-PT Subjective Patient Comments Patient Comments Reports elbow still very sore, maybe from too much exercise. Tolerated compression bandaging better than previously, did most days, hasn't tried sleeping in it. Called [employer], states paperwork still on her desk, hasn't gotten insurance approval yet. PT-OP-F Manual Assessment Start: 02/06/21 08:16 Freq: Status: Active Protocol: Document 02/06/21 13:46 [facility] (Rec: 02/07/21 17:26 [facility] [id number]) Manual Assessments Soft Tissue Assessment Soft Tissue Mobility Assessment decreased scar mobility right elbow, no increased warmth or redness or signs of infection right UE. PT-OP-J Posture/Palpation/Skin Start: 02/06/21 08:16 Freq: Status: Active Protocol: Document 02/06/21 13:46 [facility] (Rec: 02/07/21 17:26 [facility] [id number]) Posture Evaluation Position Sitting Head/C-Spine Posture Forward Head T-Spine Posture Increased Kyphosis Shoulder Posture (L) Rounded,(R) Rounded Scapula Posture (L) Protracted,(R) Protracted Arm Posture (L) Internally Rotated,(R) Internally Rotated PT-OP-K Range of Motion Start: 02/06/21 08:16 Freq: Status: Active Protocol: Document 02/06/21 13:46 [facility] (Rec: 02/07/21 17:26 [facility] [id number]) Cervical Spine Range of Motion Cervical Spine Active ROM Limitations Soft Tissue Tightness Comments mod tightness al motions Shoulder Goniometric Range of Motion Shoulder Right Active Shoulder ROM WFL No Testing Position Sitting Flexion 125 Extension 10 Abduction 120 External Rotation at 45 degrees 40 Abduction Internal Rotation Behind Back (text) L5 Left Active Shoulder ROM WFL Yes Shoulder ROM Limitations Shoulder ROM Limitations Soft Tissue Tightness,Pain, Swelling Elbow/Forearm Range of Motion Elbow/Forearm Right Active Elbow/Forearm ROM WFL No Elbow Flexion (degrees) 135 Elbow Extension (degrees) 5 Pronation (degrees) 75 Supination (degrees) 45 Left Active Elbow/Forearm ROM WFL Yes PT-OP-M Strength Start: 02/06/21 08:16 Freq: Status: Active Protocol: Document 02/06/21 13:46 [facility] (Rec: 02/07/21 17:26 [facility] [id number]) Shoulder Strength Shoulder Manual Muscle Testing Right Flexion 4- Good- Extension 4- Good- Abduction (C5) 4- Good- External Rotation 4- Good- Internal Rotation 4- Good- Comments painful Left Flexion 4+ Good+ Extension 4+ Good+ Abduction (C5) 4+ Good+ Adduction 5 Normal External Rotation 5 Normal Internal Rotation 5 Normal Elbow/Forearm Strength Elbow and Forearm Manual Muscle Testing Right Flexion (C6) 4- Good- Extension (C7) 4- Good- Pronation 4- Good- Supination 4- Good- Comments painful Left Flexion (C6) 5 Normal Extension (C7) 5 Normal PT-OP-N Lymphedema Start: 02/06/21 08:16 Freq: Status: Active Protocol: Document 03/13/21 14:17 [facility] (Rec: 03/13/21 14:27 [facility] [id number]) Lymphedema Measurements Upper Extremity Circumference Measurements Right Affected MCP 20 cm Dorsum of Hand 21.8 cm Wrist 18.4 cm 5 cm From Wrist Crease 21.5 cm 10 cm From Wrist Crease 26 cm 15 cm From Wrist Crease 30.6 cm 20 cm From Wrist Crease 33.7 cm 25 cm From Wrist Crease 36.8 cm 30 cm From Wrist Crease 43.7 cm 35 cm From Wrist Crease 51 cm 40 cm From Wrist Crease 54.8 cm 45 cm From Wrist Crease 56.7 cm Elbow Joint 35.2 cm Axilla 59.9 cm PT-OP-Q Treatments Start: 02/06/21 08:16 Freq: Status: Active Protocol: Document 03/13/21 14:17 [facility] (Rec: 03/13/21 14:27 [facility] [id number]) Cardio Equipment Recumbent Stepper (Sci-Fit) Duration (Minutes) 10 Resistance 1.0 Seat Position 12 Other to facilitate lymphatic flow after lymphedema bandaging Manual Therapy Treatment Soft Tissue Mobilization right wrist extensors Mobilization Type Myofascial Release,Strumming Body Position Supine triceps Body Location right triceps Mobilization Type Myofascial Release UT, c/s, periscapular Body Location right UE Mobilization Type Myofascial Release,Rolling, Strumming Body Position Hooklying Lymphedema Treatment Manual Lymphatic Drainage Location for right UE lymphedema Comments focus on AAA, AAI, ANURAG pathways for drainage Lymphedema Wrapping Body Location Right UE Materials patient glove and size F Tubigrip right hand, size F Tricofix, Artiflex and Comprilan (4 rolls) right UE. Compression Garment Assessment Compression Garment Assessment Details awaiting insurance approval and delievery PT-OP-T Assessment and Plan Start: 02/06/21 08:16 Freq: Status: Active Protocol: Document 03/13/21 14:17 [facility] (Rec: 03/13/21 14:27 [facility] [id number]) Physical Therapy Assessment Goals Four Impairment lacking regular exercise program Longterm Goal (LTG) Patient to be independent with HEP and aquatic exercise program for long-term fitness and pain management to include land and aquatic-based exercise LTG Duration 05/08/21 Three Impairment edema right UE [employer] Driver Goal (LTG) Patient to be independent with all aspects of edema management to include skin care, manual lymphatic drainage, lymphedema bandaging and sequential lymphedema exercises, and be fit with appropriate compression garment right UE when lymphedema stable (no increase or decrease greater than 1 cm over the course of 1 week.) LTG Duration 05/08/21 Two Impairment Pain right UE due to complex regional pain synd Impairment pain 6/10 [employer] Driver Goal (LTG) Decrease pain to no greater than 3/10 to allow patient to resume prior activities including crafting LTG Duration 05/08/21 One Impairment Lymphedema life impact scale 35% Impairment Function-limiting lymphedema [employer] Driver Goal (LTG) Decrease lymphedema life impact scale to no greater than 15% as measure of improved activity tolerance, function, and quality of life. LTG Duration 05/08/21 Assessment Summary Assessment Patient encouraged to try wearing bandaging overnight and coming to PT bandaged ( reports didn't plan time well and came to PT today not bandaged) next session to be able to better ascertain progress. Decreased ther ex today and increased time with manual techniques. Physical Therapy Plan Frequency and Duration Frequency of Treatment 12 visits Duration of Treatment 12 weeks Plan of Care Start Date 02/06/21 Plan of Care End Date 05/08/21 Therapeutic Interventions Therapeutic Interventions Aquatic Therapy,Lymphedema Management,Manual Therapy,Self -Care/Home Management,Soft Tissue Mobilization, Therapeutic Exercises Modalities Cold Pack/Ice Massage Next Visit Focus/Plan Next Note Type Treatment Note Next Visit Plan Continue lymphedema management , problem solve compression until obtains compression sleeve, work on pain management.
--- NOTE | 2021-03-15 15:22 | PT.OTN ---
Current Diagnoses Complex regional pain syndrome I of upper limb, bilateral (03/15/21) Lymphedema, not elsewhere classified (03/15/21) Physical Therapy Treatment Note PT-OP-A Visit Information Start: 02/06/21 08:16 Freq: Status: Active Protocol: Document 03/15/21 13:49 [facility] (Rec: 03/15/21 14:16 [facility] [id number]) Out-Patient Physical Therapy Visit Information Visit Information Visit Type Treatment Note Visit Start Time 13:45 Visit Stop Time 15:05 Total Visit Minutes 80 Visit Number 10 Precautions Precautions Complex regional pain syndrome , depression PT-OP-B Current Condition Start: 02/06/21 08:16 Freq: Status: Active Protocol: Document 03/15/21 13:49 [facility] (Rec: 03/15/21 14:16 [facility] [id number]) Current Condition History of Current Condition Onset Date 10+ years Current Complaints worsening chronic pain and edema right UE History of Current Condition Patient has long history of edema right UE s/p injury to right UE with resulting complex regional pain syndrome . Reports recent worsening since last seen in PT. Now prescribed Hydrocodone, taking 5x/day, helps some with the pain, but when about due arm, neck, and back start hurting. Pain and lymphedema both have been worsening since last seen in PT. 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 Discharged from PT early last time due to insurance issues, never obtained compression garment. Not doing well with stress due to 's leukemia, brother earlier this year, as well as cat . Covid and 's illness have resulted in no in person contact with daughters or children. PT order at this time for PT to include aquatic PT and lymphatic massage and treatment. Patient sees psychologist and psychiatrist for severe depression. 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 Prior short term PT. PT-OP-C Subjective Start: 02/06/21 08:16 Freq: Status: Active Protocol: Document 03/15/21 13:49 [facility] (Rec: 03/15/21 14:16 [facility] [id number]) OP-PT Subjective Patient Comments Patient Comments Has been self-bandaging, not too sure how I did but it's hard to get up high enough, plus it slides down. Pain persists at elbow, even after less exercise last session. PT-OP-F Manual Assessment Start: 02/06/21 08:16 Freq: Status: Active Protocol: Document 02/06/21 13:46 [facility] (Rec: 02/07/21 17:26 [facility] [id number]) Manual Assessments Soft Tissue Assessment Soft Tissue Mobility Assessment decreased scar mobility right elbow, no increased warmth or redness or signs of infection right UE. PT-OP-J Posture/Palpation/Skin Start: 02/06/21 08:16 Freq: Status: Active Protocol: Document 02/06/21 13:46 [facility] (Rec: 02/07/21 17:26 [facility] [id number]) Posture Evaluation Position Sitting Head/C-Spine Posture Forward Head T-Spine Posture Increased Kyphosis Shoulder Posture (L) Rounded,(R) Rounded Scapula Posture (L) Protracted,(R) Protracted Arm Posture (L) Internally Rotated,(R) Internally Rotated PT-OP-K Range of Motion Start: 02/06/21 08:16 Freq: Status: Active Protocol: Document 02/06/21 13:46 [facility] (Rec: 02/07/21 17:26 [facility] [id number]) Cervical Spine Range of Motion Cervical Spine Active ROM Limitations Soft Tissue Tightness Comments mod tightness al motions Shoulder Goniometric Range of Motion Shoulder Right Active Shoulder ROM WFL No Testing Position Sitting Flexion 125 Extension 10 Abduction 120 External Rotation at 45 degrees 40 Abduction Internal Rotation Behind Back (text) L5 Left Active Shoulder ROM WFL Yes Shoulder ROM Limitations Shoulder ROM Limitations Soft Tissue Tightness,Pain, Swelling Elbow/Forearm Range of Motion Elbow/Forearm Right Active Elbow/Forearm ROM WFL No Elbow Flexion (degrees) 135 Elbow Extension (degrees) 5 Pronation (degrees) 75 Supination (degrees) 45 Left Active Elbow/Forearm ROM WFL Yes PT-OP-M Strength Start: 02/06/21 08:16 Freq: Status: Active Protocol: Document 02/06/21 13:46 [facility] (Rec: 02/07/21 17:26 [facility] [id number]) Shoulder Strength Shoulder Manual Muscle Testing Right Flexion 4- Good- Extension 4- Good- Abduction (C5) 4- Good- External Rotation 4- Good- Internal Rotation 4- Good- Comments painful Left Flexion 4+ Good+ Extension 4+ Good+ Abduction (C5) 4+ Good+ Adduction 5 Normal External Rotation 5 Normal Internal Rotation 5 Normal Elbow/Forearm Strength Elbow and Forearm Manual Muscle Testing Right Flexion (C6) 4- Good- Extension (C7) 4- Good- Pronation 4- Good- Supination 4- Good- Comments painful Left Flexion (C6) 5 Normal Extension (C7) 5 Normal PT-OP-N Lymphedema Start: 02/06/21 08:16 Freq: Status: Active Protocol: Document 03/15/21 13:49 [facility] (Rec: 03/15/21 14:16 [facility] [id number]) Lymphedema Measurements Upper Extremity Circumference Measurements Right Affected MCP 20.1 cm Dorsum of Hand 21.8 cm Wrist 18.3 cm 5 cm From Wrist Crease 21.2 cm 10 cm From Wrist Crease 26.3 cm 15 cm From Wrist Crease 30.5 cm 20 cm From Wrist Crease 34 cm 25 cm From Wrist Crease 34 cm 30 cm From Wrist Crease 41.9 cm 35 cm From Wrist Crease 51.3 cm 40 cm From Wrist Crease 51.3 cm 45 cm From Wrist Crease 54.1 cm Elbow Joint 34.2 cm Axilla 59 cm PT-OP-Q Treatments Start: 02/06/21 08:16 Freq: Status: Active Protocol: Document 03/15/21 13:49 [facility] (Rec: 03/15/21 14:16 [facility] [id number]) Cardio Equipment Recumbent Stepper (Sci-Fit) Duration (Minutes) 10 Resistance 1.0 Seat Position 12 Other to facilitate lymphatic flow after lymphedema bandaging Therapeutic Exercises Sitting Exercises pulleys Sitting Exercise Name flex, scaption Reps/Minutes 10x Manual Therapy Treatment Soft Tissue Mobilization right wrist extensors Mobilization Type Myofascial Release,Strumming Body Position Supine triceps Body Location right triceps Mobilization Type Myofascial Release UT, c/s, periscapular Body Location right UE Mobilization Type Myofascial Release,Rolling, Strumming Body Position Hooklying Lymphedema Treatment Manual Lymphatic Drainage Location for right UE lymphedema Comments focus on AAA, AAI, ANURAG pathways for drainage Lymphedema Wrapping Body Location Right UE Materials patient glove and size F Tubigrip right hand, size F Tricofix, Artiflex and Comprilan (4 rolls) right UE. Compression Garment Assessment Compression Garment Assessment Details awaiting insurance approval and montyvery Other Other Continue to encourage use of [employer] [facility] videos for instruction and discussion of self-wrapping and given information for watching video of self-massage compression garments. PT-OP-T Assessment and Plan Start: 02/06/21 08:16 Freq: Status: Active Protocol: Document 03/15/21 13:49 [facility] (Rec: 03/15/21 14:16 [facility] [id number]) Physical Therapy Assessment Impairments Impairments Activity Tolerance,Edema,Pain, ROM Goals Four Impairment lacking regular exercise program Neuroscience Specialist Goal (LTG) Patient to be independent with HEP and aquatic exercise program for long-term fitness and pain management to include land and aquatic-based exercise LTG Duration 05/08/21 Three Impairment edema right UE Care Home Goal (LTG) Patient to be independent with all aspects of edema management to include skin care, manual lymphatic drainage, lymphedema bandaging and sequential lymphedema exercises, and be fit with appropriate compression garment right UE when lymphedema stable (no increase or decrease greater than 1 cm over the course of 1 week.) LTG Duration 05/08/21 Two Impairment Pain right UE due to complex regional pain synd Impairment pain 6/10 Neuroscience Specialist Goal (LTG) Decrease pain to no greater than 3/10 to allow patient to resume prior activities including crafting LTG Duration 05/08/21 One Impairment Lymphedema life impact scale 35% Impairment Function-limiting lymphedema Care Home Goal (LTG) Decrease lymphedema life impact scale to no greater than 15% as measure of improved activity tolerance, function, and quality of life. LTG Duration 05/08/21 Assessment Summary Assessment variations in circumferential measurements but overall decreased signficiantly especially just inferior to elbow, at elbow, and at proximal upper arm. Pain persists. Physical Therapy Plan Frequency and Duration Frequency of Treatment 12 visits Duration of Treatment 12 weeks Plan of Care Start Date 02/06/21 Plan of Care End Date 05/08/21 Therapeutic Interventions Therapeutic Interventions Aquatic Therapy,Lymphedema Management,Manual Therapy,Self -Care/Home Management,Soft Tissue Mobilization, Therapeutic Exercises Modalities Cold Pack/Ice Massage Next Visit Focus/Plan Next Note Type Treatment Note Next Visit Plan Continue lymphedema management , problem solve compression until obtains compression sleeve, work on pain management.
--- NOTE | 2021-03-20 15:47 | PT.OTN ---
Current Diagnoses Complex regional pain syndrome I of upper limb, bilateral (03/20/21) Lymphedema, not elsewhere classified (03/20/21) Physical Therapy Treatment Note PT-OP-A Visit Information Start: 02/06/21 08:16 Freq: Status: Active Protocol: Document 03/20/21 13:04 SAK (Rec: 03/20/21 13:13 SAK [id number]) Out-Patient Physical Therapy Visit Information Visit Information Visit Type Treatment Note Visit Start Time 13:00 Visit Stop Time 14:20 Total Visit Minutes 80 Visit Number 11 Precautions Precautions Complex regional pain syndrome , depression PT-OP-B Current Condition Start: 02/06/21 08:16 Freq: Status: Active Protocol: Document 03/20/21 13:04 SAK (Rec: 03/20/21 13:13 SAK [id number]) Current Condition History of Current Condition Onset Date 10+ years Current Complaints worsening chronic pain and edema right UE History of Current Condition Patient has long history of edema right UE s/p injury to right UE with resulting complex regional pain syndrome . Reports recent worsening since last seen in PT. Now prescribed Hydrocodone, taking 5x/day, helps some with the pain, but when about due arm, neck, and back start hurting. Pain and lymphedema both have been worsening since last seen in PT. 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 Discharged from PT early last time due to insurance issues, never obtained compression garment. Not doing well with stress due to 's leukemia, brother earlier this year, as well as cat . Covid and 's illness have resulted in no in person contact with daughters or children. PT order at this time for PT to include aquatic PT and lymphatic massage and treatment. Patient sees psychologist and psychiatrist for severe depression. 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 Prior short term PT. PT-OP-C Subjective Start: 02/06/21 08:16 Freq: Status: Active Protocol: Document 03/20/21 13:04 SAK (Rec: 03/20/21 13:13 SAK [id number]) OP-PT Subjective Patient Comments Patient Comments Wore compression bandaging overnight, but woke up very sore, with increased swelling into hand, couldn't take ring off finger. Doesn't want to wear overnight. Hasn't heard yet from [facility] about compression garment yet. PT-OP-F Manual Assessment Start: 02/06/21 08:16 Freq: Status: Active Protocol: Document 02/06/21 13:46 [facility] (Rec: 02/07/21 17:26 [facility] [id number]) Manual Assessments Soft Tissue Assessment Soft Tissue Mobility Assessment decreased scar mobility right elbow, no increased warmth or redness or signs of infection right UE. PT-OP-J Posture/Palpation/Skin Start: 02/06/21 08:16 Freq: Status: Active Protocol: Document 02/06/21 13:46 [facility] (Rec: 02/07/21 17:26 [facility] [id number]) Posture Evaluation Position Sitting Head/C-Spine Posture Forward Head T-Spine Posture Increased Kyphosis Shoulder Posture (L) Rounded,(R) Rounded Scapula Posture (L) Protracted,(R) Protracted Arm Posture (L) Internally Rotated,(R) Internally Rotated PT-OP-K Range of Motion Start: 02/06/21 08:16 Freq: Status: Active Protocol: Document 02/06/21 13:46 [facility] (Rec: 02/07/21 17:26 [facility] [id number]) Cervical Spine Range of Motion Cervical Spine Active ROM Limitations Soft Tissue Tightness Comments mod tightness al motions Shoulder Goniometric Range of Motion Shoulder Right Active Shoulder ROM WFL No Testing Position Sitting Flexion 125 Extension 10 Abduction 120 External Rotation at 45 degrees 40 Abduction Internal Rotation Behind Back (text) L5 Left Active Shoulder ROM WFL Yes Shoulder ROM Limitations Shoulder ROM Limitations Soft Tissue Tightness,Pain, Swelling Elbow/Forearm Range of Motion Elbow/Forearm Right Active Elbow/Forearm ROM WFL No Elbow Flexion (degrees) 135 Elbow Extension (degrees) 5 Pronation (degrees) 75 Supination (degrees) 45 Left Active Elbow/Forearm ROM WFL Yes PT-OP-M Strength Start: 02/06/21 08:16 Freq: Status: Active Protocol: Document 02/06/21 13:46 [facility] (Rec: 02/07/21 17:26 [facility] [id number]) Shoulder Strength Shoulder Manual Muscle Testing Right Flexion 4- Good- Extension 4- Good- Abduction (C5) 4- Good- External Rotation 4- Good- Internal Rotation 4- Good- Comments painful Left Flexion 4+ Good+ Extension 4+ Good+ Abduction (C5) 4+ Good+ Adduction 5 Normal External Rotation 5 Normal Internal Rotation 5 Normal Elbow/Forearm Strength Elbow and Forearm Manual Muscle Testing Right Flexion (C6) 4- Good- Extension (C7) 4- Good- Pronation 4- Good- Supination 4- Good- Comments painful Left Flexion (C6) 5 Normal Extension (C7) 5 Normal PT-OP-N Lymphedema Start: 02/06/21 08:16 Freq: Status: Active Protocol: Document 03/20/21 13:04 [facility] (Rec: 03/20/21 15:46 [facility] [id number]) Lymphedema Measurements Upper Extremity Circumference Measurements Right Affected MCP 20.5 cm Dorsum of Hand 22 cm Wrist 18.8 cm 5 cm From Wrist Crease 20.9 cm 10 cm From Wrist Crease 25.6 cm 15 cm From Wrist Crease 31 cm 20 cm From Wrist Crease 33.9 cm 25 cm From Wrist Crease 34.7 cm 30 cm From Wrist Crease 42.8 cm 35 cm From Wrist Crease 50.5 cm 40 cm From Wrist Crease 54.7 cm 45 cm From Wrist Crease 55.8 cm Elbow Joint 34.8 cm Axilla 60.5 cm PT-OP-Q Treatments Start: 02/06/21 08:16 Freq: Status: Active Protocol: Document 03/20/21 13:04 [facility] (Rec: 03/20/21 13:13 [facility] [id number]) Cardio Equipment Recumbent Stepper (Sci-Fit) Duration (Minutes) 10 Resistance 1.0 Seat Position 12 Other to facilitate lymphatic flow after lymphedema bandaging Therapeutic Exercises Sitting Exercises pulleys Sitting Exercise Name flex, scaption Reps/Minutes 10x ea Manual Therapy Treatment Soft Tissue Mobilization right wrist extensors Mobilization Type Myofascial Release,Strumming Body Position Supine triceps Body Location right triceps Mobilization Type Myofascial Release UT, c/s, periscapular Body Location right UE Mobilization Type Myofascial Release,Rolling, Strumming Body Position Hooklying Lymphedema Treatment Manual Lymphatic Drainage Location for right UE lymphedema Comments focus on AAA, AAI, ANURAG pathways for drainage Lymphedema Wrapping Body Location Right UE Materials patient glove and size F Tubigrip right hand, size F Tricofix, Artiflex and Comprilan (4 rolls) right UE. Compression Garment Assessment Compression Garment Assessment Details awaiting insurance approval and delievery; PT emailed [facility] today to check. Other Other Continue to encourage use of [employer] [facility] videos for instruction and discussion of self-wrapping and given information for watching video of self-massage compression garments. PT-OP-T Assessment and Plan Start: 02/06/21 08:16 Freq: Status: Active Protocol: Document 03/20/21 13:04 [facility] (Rec: 03/20/21 13:13 [facility] [id number]) Physical Therapy Assessment Impairments Impairments Activity Tolerance,Edema,Pain, ROM Goals Four Impairment lacking regular exercise program [facility] Goal (LTG) Patient to be independent with HEP and aquatic exercise program for long-term fitness and pain management to include land and aquatic-based exercise LTG Duration 05/08/21 Three Impairment edema right UE [facility] Goal (LTG) Patient to be independent with all aspects of edema management to include skin care, manual lymphatic drainage, lymphedema bandaging and sequential lymphedema exercises, and be fit with appropriate compression garment right UE when lymphedema stable (no increase or decrease greater than 1 cm over the course of 1 week.) LTG Duration 05/08/21 Two Impairment Pain right UE due to complex regional pain synd Impairment pain 6/10 Emergency Communications Officer Goal (LTG) Decrease pain to no greater than 3/10 to allow patient to resume prior activities including crafting LTG Duration 05/08/21 One Impairment Lymphedema life impact scale 35% Impairment Function-limiting lymphedema [facility] Goal (LTG) Decrease lymphedema life impact scale to no greater than 15% as measure of improved activity tolerance, function, and quality of life. LTG Duration 05/08/21 Assessment Summary Assessment Measurements increased today due to patient not wearing compression since last night ( see measurement section). Patient did not tolerate wearing bandaging overnight, will continue to bandage during the day until receives compresison garment. Physical Therapy Plan Frequency and Duration Frequency of Treatment 12 visits Duration of Treatment 12 weeks Plan of Care Start Date 02/06/21 Plan of Care End Date 05/08/21 Therapeutic Interventions Therapeutic Interventions Aquatic Therapy,Lymphedema Management,Manual Therapy,Self -Care/Home Management,Soft Tissue Mobilization, Therapeutic Exercises Modalities Cold Pack/Ice Massage Next Visit Focus/Plan Next Note Type Treatment Note Next Visit Plan Emailed [facility] to check on compression garment. Continue lymphedema management. Ther ex and manual techniques for pain management.
--- NOTE | 2021-03-27 15:06 | PT.OTN ---
Current Diagnoses Complex regional pain syndrome I of upper limb, bilateral (03/27/21) Lymphedema, not elsewhere classified (03/27/21) Physical Therapy Treatment Note PT-OP-A Visit Information Start: 02/06/21 08:16 Freq: Status: Active Protocol: Document 03/27/21 13:00 SAK (Rec: 03/27/21 13:41 [facility] [id number]) Out-Patient Physical Therapy Visit Information Visit Information Visit Type Treatment Note Visit Note 04/08 visits Visit Start Time 13:00 Visit Stop Time 14:20 Total Visit Minutes 85 Visit Number 12 Precautions Precautions Complex regional pain syndrome , depression PT-OP-B Current Condition Start: 02/06/21 08:16 Freq: Status: Active Protocol: Document 03/27/21 13:00 SAK (Rec: 03/27/21 13:41 SAK [id number]) Current Condition History of Current Condition Onset Date 10+ years Current Complaints worsening chronic pain and edema right UE History of Current Condition Patient has long history of edema right UE s/p injury to right UE with resulting complex regional pain syndrome . Reports recent worsening since last seen in PT. Now prescribed Hydrocodone, taking 5x/day, helps some with the pain, but when about due arm, neck, and back start hurting. Pain and lymphedema both have been worsening since last seen in PT. 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 Discharged from PT early last time due to insurance issues, never obtained compression garment. Not doing well with stress due to 's leukemia, brother earlier this year, as well as cat . Covid and 's illness have resulted in no in person contact with daughters or children. PT order at this time for PT to include aquatic PT and lymphatic massage and treatment. Patient sees psychologist and psychiatrist for severe depression. 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 Prior short term PT. PT-OP-C Subjective Start: 02/06/21 08:16 Freq: Status: Active Protocol: Document 03/27/21 13:00 SAK (Rec: 03/27/21 13:41 SAK [id number]) OP-PT Subjective Patient Comments Patient Comments Reports has been bandaging, but has difficulty with the bandaging sliding down. More elbow pain, states likely doing more with her arm at home, getting ready for [place]. Still hasn't heard back from [facility], will contact again, and PT to contact as well. PT-OP-F Manual Assessment Start: 02/06/21 08:16 Freq: Status: Active Protocol: Document 02/06/21 13:46 [facility] (Rec: 02/07/21 17:26 [facility] [id number]) Manual Assessments Soft Tissue Assessment Soft Tissue Mobility Assessment decreased scar mobility right elbow, no increased warmth or redness or signs of infection right UE. PT-OP-J Posture/Palpation/Skin Start: 02/06/21 08:16 Freq: Status: Active Protocol: Document 02/06/21 13:46 [facility] (Rec: 02/07/21 17:26 [facility] [id number]) Posture Evaluation Position Sitting Head/C-Spine Posture Forward Head T-Spine Posture Increased Kyphosis Shoulder Posture (L) Rounded,(R) Rounded Scapula Posture (L) Protracted,(R) Protracted Arm Posture (L) Internally Rotated,(R) Internally Rotated PT-OP-K Range of Motion Start: 02/06/21 08:16 Freq: Status: Active Protocol: Document 02/06/21 13:46 [facility] (Rec: 02/07/21 17:26 [facility] [id number]) Cervical Spine Range of Motion Cervical Spine Active ROM Limitations Soft Tissue Tightness Comments mod tightness al motions Shoulder Goniometric Range of Motion Shoulder Right Active Shoulder ROM WFL No Testing Position Sitting Flexion 125 Extension 10 Abduction 120 External Rotation at 45 degrees 40 Abduction Internal Rotation Behind Back (text) L5 Left Active Shoulder ROM WFL Yes Shoulder ROM Limitations Shoulder ROM Limitations Soft Tissue Tightness,Pain, Swelling Elbow/Forearm Range of Motion Elbow/Forearm Right Active Elbow/Forearm ROM WFL No Elbow Flexion (degrees) 135 Elbow Extension (degrees) 5 Pronation (degrees) 75 Supination (degrees) 45 Left Active Elbow/Forearm ROM WFL Yes PT-OP-M Strength Start: 02/06/21 08:16 Freq: Status: Active Protocol: Document 02/06/21 13:46 [facility] (Rec: 02/07/21 17:26 [facility] [id number]) Shoulder Strength Shoulder Manual Muscle Testing Right Flexion 4- Good- Extension 4- Good- Abduction (C5) 4- Good- External Rotation 4- Good- Internal Rotation 4- Good- Comments painful Left Flexion 4+ Good+ Extension 4+ Good+ Abduction (C5) 4+ Good+ Adduction 5 Normal External Rotation 5 Normal Internal Rotation 5 Normal Elbow/Forearm Strength Elbow and Forearm Manual Muscle Testing Right Flexion (C6) 4- Good- Extension (C7) 4- Good- Pronation 4- Good- Supination 4- Good- Comments painful Left Flexion (C6) 5 Normal Extension (C7) 5 Normal PT-OP-N Lymphedema Start: 02/06/21 08:16 Freq: Status: Active Protocol: Document 03/20/21 13:04 [facility] (Rec: 03/20/21 15:46 [facility] [id number]) Lymphedema Measurements Upper Extremity Circumference Measurements Right Affected MCP 20.5 cm Dorsum of Hand 22 cm Wrist 18.8 cm 5 cm From Wrist Crease 20.9 cm 10 cm From Wrist Crease 25.6 cm 15 cm From Wrist Crease 31 cm 20 cm From Wrist Crease 33.9 cm 25 cm From Wrist Crease 34.7 cm 30 cm From Wrist Crease 42.8 cm 35 cm From Wrist Crease 50.5 cm 40 cm From Wrist Crease 54.7 cm 45 cm From Wrist Crease 55.8 cm Elbow Joint 34.8 cm Axilla 60.5 cm PT-OP-Q Treatments Start: 02/06/21 08:16 Freq: Status: Active Protocol: Document 03/27/21 13:00 [facility] (Rec: 03/27/21 13:41 [facility] [id number]) Cardio Equipment Recumbent Stepper (Sci-Fit) Duration (Minutes) 10 Resistance 1.0 Seat Position 12 Other to facilitate lymphatic flow after lymphedema bandaging, 1. 0 mile Therapeutic Exercises Sitting Exercises pulleys Sitting Exercise Name flex, scaption Reps/Minutes 10x ea Manual Therapy Treatment Soft Tissue Mobilization right wrist extensors Mobilization Type Myofascial Release,Strumming Body Position Supine triceps Body Location right triceps Mobilization Type Myofascial Release Lymphedema Treatment Manual Lymphatic Drainage Location for right UE lymphedema Comments focus on AAA, AAI, ANURAG pathways for drainage Lymphedema Wrapping Body Location Right UE Materials patient glove and size F Tubigrip right hand, size F Tricofix, Artiflex and Comprilan (4 rolls) right UE. Compression Garment Assessment Compression Garment Assessment Details awaiting insurance approval and delievery. PT emailed again and phoned and left message Other Other Patient reports she lost information and was given again for [employer] videos for instruction and discussion of self-bandaging (instructed to have view and help as able) and given information for watching video of self- massage and for compression garments. PT-OP-T Assessment and Plan Start: 02/06/21 08:16 Freq: Status: Active Protocol: Document 03/27/21 13:00 [facility] (Rec: 03/27/21 13:41 [facility] [id number]) Physical Therapy Assessment Impairments Impairments Activity Tolerance,Edema,Pain, ROM Goals Four Impairment lacking regular exercise program Manager Social Services Goal (LTG) Patient to be independent with HEP and aquatic exercise program for long-term fitness and pain management to include land and aquatic-based exercise LTG Duration 05/08/21 Three Impairment edema right UE Manager Social Services Goal (LTG) Patient to be independent with all aspects of edema management to include skin care, manual lymphatic drainage, lymphedema bandaging and sequential lymphedema exercises, and be fit with appropriate compression garment right UE when lymphedema stable (no increase or decrease greater than 1 cm over the course of 1 week.) LTG Duration 05/08/21 Two Impairment Pain right UE due to complex regional pain synd Impairment pain 6/10 Group Home Goal (LTG) Decrease pain to no greater than 3/10 to allow patient to resume prior activities including crafting LTG Duration 05/08/21 One Impairment Lymphedema life impact scale 35% Impairment Function-limiting lymphedema Group Home Goal (LTG) Decrease lymphedema life impact scale to no greater than 15% as measure of improved activity tolerance, function, and quality of life. LTG Duration 05/08/21 Assessment Summary Assessment Measurements stable, patient having difficulty keeping bandaging from sliding down. Needs compression garment. Contacted [facility] again for her . Pain increased in elbow, spent increased manual time on soft tissue mobilization throughout forearm and triceps . Physical Therapy Plan Frequency and Duration Frequency of Treatment 12 visits Duration of Treatment 12 weeks Plan of Care Start Date 02/06/21 Plan of Care End Date 05/08/21 Therapeutic Interventions Therapeutic Interventions Aquatic Therapy,Lymphedema Management,Manual Therapy,Self -Care/Home Management,Soft Tissue Mobilization, Therapeutic Exercises Modalities Cold Pack/Ice Massage Next Visit Focus/Plan Next Note Type Treatment Note Next Visit Plan increased manual treatment time with MFR and consider increased strengthening right forearm and elbow.
--- NOTE | 2021-03-29 13:01 | PT.OTN ---
Current Diagnoses Complex regional pain syndrome I of upper limb, bilateral (03/29/21) Lymphedema, not elsewhere classified (03/29/21) Physical Therapy Treatment Note PT-OP-A Visit Information Start: 02/06/21 08:16 Freq: Status: Active Protocol: Document 03/29/21 13:04 [facility] (Rec: 03/29/21 13:19 [facility] [id number]) Out-Patient Physical Therapy Visit Information Visit Information Visit Type Treatment Note Visit Start Time 13:00 Visit Stop Time 14:20 Total Visit Minutes 85 Visit Number 13 Precautions Precautions Complex regional pain syndrome , depression PT-OP-B Current Condition Start: 02/06/21 08:16 Freq: Status: Active Protocol: Document 03/29/21 13:04 [facility] (Rec: 03/29/21 13:19 [facility] [id number]) Current Condition History of Current Condition Onset Date 10+ years Current Complaints worsening chronic pain and edema right UE History of Current Condition Patient has long history of edema right UE s/p injury to right UE with resulting complex regional pain syndrome . Reports recent worsening since last seen in PT. Now prescribed Hydrocodone, taking 5x/day, helps some with the pain, but when about due arm, neck, and back start hurting. Pain and lymphedema both have been worsening since last seen in PT. 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 Discharged from PT early last time due to insurance issues, never obtained compression garment. Not doing well with stress due to 's leukemia, brother earlier this year, as well as cat . Covid and 's illness have resulted in no in person contact with daughters or children. PT order at this time for PT to include aquatic PT and lymphatic massage and treatment. Patient sees psychologist and psychiatrist for severe depression. Prior Treatments and Tests Seeing finish painter: Hydrocodone, Flexeril . Prior short term PT. PT-OP-C Subjective Start: 02/06/21 08:16 Freq: Status: Active Protocol: Document 03/29/21 13:04 [facility] (Rec: 03/29/21 13:19 [facility] [id number]) OP-PT Subjective Patient Comments Patient Comments Had pain management appointment this am, talked about what she might be doing differently as elbow continues to hurt. Agreeable to spend more of PT session working on pain control. Has been trying to get insurance company to cover infrared heating pad. PT-OP-F Manual Assessment Start: 02/06/21 08:16 Freq: Status: Active Protocol: Document 02/06/21 13:46 [facility] (Rec: 02/07/21 17:26 [facility] [id number]) Manual Assessments Soft Tissue Assessment Soft Tissue Mobility Assessment decreased scar mobility right elbow, no increased warmth or redness or signs of infection right UE. PT-OP-J Posture/Palpation/Skin Start: 02/06/21 08:16 Freq: Status: Active Protocol: Document 02/06/21 13:46 [facility] (Rec: 02/07/21 17:26 [facility] [id number]) Posture Evaluation Position Sitting Head/C-Spine Posture Forward Head T-Spine Posture Increased Kyphosis Shoulder Posture (L) Rounded,(R) Rounded Scapula Posture (L) Protracted,(R) Protracted Arm Posture (L) Internally Rotated,(R) Internally Rotated PT-OP-K Range of Motion Start: 02/06/21 08:16 Freq: Status: Active Protocol: Document 02/06/21 13:46 [facility] (Rec: 02/07/21 17:26 [facility] [id number]) Cervical Spine Range of Motion Cervical Spine Active ROM Limitations Soft Tissue Tightness Comments mod tightness al motions Shoulder Goniometric Range of Motion Shoulder Right Active Shoulder ROM WFL No Testing Position Sitting Flexion 125 Extension 10 Abduction 120 External Rotation at 45 degrees 40 Abduction Internal Rotation Behind Back (text) L5 Left Active Shoulder ROM WFL Yes Shoulder ROM Limitations Shoulder ROM Limitations Soft Tissue Tightness,Pain, Swelling Elbow/Forearm Range of Motion Elbow/Forearm Right Active Elbow/Forearm ROM WFL No Elbow Flexion (degrees) 135 Elbow Extension (degrees) 5 Pronation (degrees) 75 Supination (degrees) 45 Left Active Elbow/Forearm ROM WFL Yes PT-OP-M Strength Start: 02/06/21 08:16 Freq: Status: Active Protocol: Document 02/06/21 13:46 [facility] (Rec: 02/07/21 17:26 [facility] [id number]) Shoulder Strength Shoulder Manual Muscle Testing Right Flexion 4- Good- Extension 4- Good- Abduction (C5) 4- Good- External Rotation 4- Good- Internal Rotation 4- Good- Comments painful Left Flexion 4+ Good+ Extension 4+ Good+ Abduction (C5) 4+ Good+ Adduction 5 Normal External Rotation 5 Normal Internal Rotation 5 Normal Elbow/Forearm Strength Elbow and Forearm Manual Muscle Testing Right Flexion (C6) 4- Good- Extension (C7) 4- Good- Pronation 4- Good- Supination 4- Good- Comments painful Left Flexion (C6) 5 Normal Extension (C7) 5 Normal PT-OP-N Lymphedema Start: 02/06/21 08:16 Freq: Status: Active Protocol: Document 03/20/21 13:04 [facility] (Rec: 03/20/21 15:46 [facility] [id number]) Lymphedema Measurements Upper Extremity Circumference Measurements Right Affected MCP 20.5 cm Dorsum of Hand 22 cm Wrist 18.8 cm 5 cm From Wrist Crease 20.9 cm 10 cm From Wrist Crease 25.6 cm 15 cm From Wrist Crease 31 cm 20 cm From Wrist Crease 33.9 cm 25 cm From Wrist Crease 34.7 cm 30 cm From Wrist Crease 42.8 cm 35 cm From Wrist Crease 50.5 cm 40 cm From Wrist Crease 54.7 cm 45 cm From Wrist Crease 55.8 cm Elbow Joint 34.8 cm Axilla 60.5 cm PT-OP-Q Treatments Start: 02/06/21 08:16 Freq: Status: Active Protocol: Document 03/29/21 13:04 [facility] (Rec: 03/29/21 13:19 [facility] [id number]) Cardio Equipment Recumbent Stepper (Sci-Fit) Other not done due to elbow pain. Therapeutic Exercises Supine Exercises forearm extensor and flexor stretches Reps/Minutes 2x30 ea Comments manual Sitting Exercises pulleys Sitting Exercise Name flex, scaption Reps/Minutes 10x ea Manual Therapy Treatment Soft Tissue Mobilization forearm flexors Mobilization Type Myofascial Release,Rolling, Strumming right wrist extensors Mobilization Type Myofascial Release,Rolling, Strumming Body Position Supine triceps Body Location right triceps Mobilization Type Myofascial Release,Rolling, Strumming Lymphedema Treatment Lymphedema Wrapping Body Location Right UE Materials patient glove and size F Tubigrip right hand, size F Tricofix, Artiflex and Comprilan (4 rolls) right UE. Compression Garment Assessment Compression Garment Assessment Details not received yet. PT emailed again to check on status, hasn 't heard back yet. PT-OP-T Assessment and Plan Start: 02/06/21 08:16 Freq: Status: Active Protocol: Document 03/29/21 13:04 [facility] (Rec: 03/29/21 13:19 [facility] [id number]) Physical Therapy Assessment Impairments Impairments Activity Tolerance,Edema,Pain, ROM Goals Four Impairment lacking regular exercise program Fast Food Restaurant Manager Goal (LTG) Patient to be independent with HEP and aquatic exercise program for long-term fitness and pain management to include land and aquatic-based exercise LTG Duration 05/08/21 Three Impairment edema right UE [employer] Food Restaurant Manager Goal (LTG) Patient to be independent with all aspects of edema management to include skin care, manual lymphatic drainage, lymphedema bandaging and sequential lymphedema exercises, and be fit with appropriate compression garment right UE when lymphedema stable (no increase or decrease greater than 1 cm over the course of 1 week.) LTG Duration 05/08/21 Two Impairment Pain right UE due to complex regional pain synd Impairment pain 6/10 Fast Food Restaurant Manager Goal (LTG) Decrease pain to no greater than 3/10 to allow patient to resume prior activities including crafting LTG Duration 05/08/21 One Impairment Lymphedema life impact scale 35% Impairment Function-limiting lymphedema Alf Goal (LTG) Decrease lymphedema life impact scale to no greater than 15% as measure of improved activity tolerance, function, and quality of life. LTG Duration 05/08/21 Assessment Summary Assessment Increased emphasis on pain management with trial ultrasound, stretching, soft tissue mobilization. Continue lymphedema bandaging. Physical Therapy Plan Frequency and Duration Frequency of Treatment 12 visits Duration of Treatment 12 weeks Plan of Care Start Date 02/06/21 Plan of Care End Date 05/08/21 Therapeutic Interventions Therapeutic Interventions Aquatic Therapy,Lymphedema Management,Manual Therapy,Self -Care/Home Management,Soft Tissue Mobilization, Therapeutic Exercises Modalities Cold Pack/Ice Massage Next Visit Focus/Plan Next Note Type Treatment Note Next Visit Plan Evaluate response to today's modified treatment. Continue PT per POC for pain and lymphedema management.
--- NOTE | 2021-06-21 14:43 | PT.OTRE ---
Current Diagnoses Complex regional pain syndrome I of upper limb, bilateral (06/21/21) Lymphedema, not elsewhere classified (06/21/21) Past Medical History (Last Updated 05/12/20 @ 09:14 by Arnav Meza DO) CPRS 1 (complex regional pain syndrome I) of upper limb S/P gastric bypass Surgical History (Last Updated 05/12/20 @ 09:14 by Arnav Meza DO) S/P gastric bypass Visit Care Team Role Provider Type Gaby Hopson MD Family Provider Non-Staff Primary Care Provider Specialty: Internal Medicine Address: [address] [place] [address], [address], [place], [address] Email: Cristóbal Webster LAC Attending Provider Non-Staff Referring Provider Specialty: Anesthesia/Pain Management Address: [address] [place] [address], [address] Email: Physical Therapy Re-Evaluation PT-OP-A Visit Information Start: 02/06/21 08:16 Freq: Status: Active Protocol: Document 06/21/21 10:36 [facility] (Rec: 06/21/21 11:15 [facility] [id number]) Out-Patient Physical Therapy Visit Information Visit Information Visit Type Re-Evaluation Visit Start Time 10:30 Visit Stop Time 11:45 Total Visit Minutes 75 Visit Number 14 Precautions Precautions Complex regional pain syndrome , depression PT-OP-B Current Condition Start: 02/06/21 08:16 Freq: Status: Active Protocol: Document 06/21/21 10:36 [facility] (Rec: 06/21/21 11:15 [facility] [id number]) Current Condition History of Current Condition Onset Date 10+ years Current Complaints worsening chronic pain and edema right UE History of Current Condition Patient has long history of edema right UE s/p injury to right UE with resulting complex regional pain syndrome . Reports recent worsening since last seen in PT. Now prescribed Hydrocodone, taking 5x/day, helps some with the pain, but when about due arm, neck, and back start hurting. Pain and lymphedema both have been worsening since last seen in PT. 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 Discharged from PT early last time due to insurance issues, never obtained compression garment. Not doing well with stress due to 's leukemia, brother earlier this year, as well as cat . Covid and 's illness have resulted in no in person contact with daughters or children. PT order at this time for PT to include aquatic PT and lymphatic massage and treatment. Patient sees psychologist and psychiatrist for severe depression. Prior Treatments and Tests Seeing paint mixer: Hydrocodone, Flexeril . Prior short term PT. PT-OP-C Subjective Start: 02/06/21 08:16 Freq: Status: Active Protocol: Document 06/21/21 10:36 [facility] (Rec: 06/21/21 11:15 [facility] [id number]) OP-PT Subjective Patient Comments Patient Comments REturns to PT due to ongoing difficulty with lymphedema right UE and pain right elbow down to the wrist including sharp pains through whole arm. Also reports left elbow pain , possibly due to favoring right. Seeing paint mixer, medications not helpful no other techniques. Hasn't heard from [facility] yet about compression garment; was measured back in March. Hasn't been able to do compression on her own. PT-OP-F Manual Assessment Start: 02/06/21 08:16 Freq: Status: Active Protocol: Document 02/06/21 13:46 [facility] (Rec: 02/07/21 17:26 [facility] [id number]) Manual Assessments Soft Tissue Assessment Soft Tissue Mobility Assessment decreased scar mobility right elbow, no increased warmth or redness or signs of infection right UE. PT-OP-J Posture/Palpation/Skin Start: 02/06/21 08:16 Freq: Status: Active Protocol: Document 02/06/21 13:46 [facility] (Rec: 02/07/21 17:26 [facility] [id number]) Posture Evaluation Position Sitting Head/C-Spine Posture Forward Head T-Spine Posture Increased Kyphosis Shoulder Posture (L) Rounded,(R) Rounded Scapula Posture (L) Protracted,(R) Protracted Arm Posture (L) Internally Rotated,(R) Internally Rotated PT-OP-K Range of Motion Start: 02/06/21 08:16 Freq: Status: Active Protocol: Document 02/06/21 13:46 [facility] (Rec: 02/07/21 17:26 [facility] [id number]) Cervical Spine Range of Motion Cervical Spine Active ROM Limitations Soft Tissue Tightness Comments mod tightness al motions Shoulder Goniometric Range of Motion Shoulder Measured in Degrees Right Active Shoulder ROM WFL No Testing Position Sitting Flexion 125 Extension 10 Abduction 120 External Rotation at 45 degrees 40 Abduction Internal Rotation Behind Back (text) L5 Left Active Shoulder ROM WFL Yes Shoulder ROM Limitations Shoulder ROM Limitations Soft Tissue Tightness,Pain, Swelling Elbow/Forearm Range of Motion Elbow/Forearm Measured in Degrees Right Active Elbow/Forearm ROM WFL No Elbow Flexion (degrees) 135 Elbow Extension (degrees) 5 Pronation (degrees) 75 Supination (degrees) 45 Left Active Elbow/Forearm ROM WFL Yes PT-OP-M Strength Start: 02/06/21 08:16 Freq: Status: Active Protocol: Document 02/06/21 13:46 [facility] (Rec: 02/07/21 17:26 [facility] [id number]) Shoulder Strength Shoulder Manual Muscle Testing Right Flexion 4- Good- Extension 4- Good- Abduction (C5) 4- Good- External Rotation 4- Good- Internal Rotation 4- Good- Comments painful Left Flexion 4+ Good+ Extension 4+ Good+ Abduction (C5) 4+ Good+ Adduction 5 Normal External Rotation 5 Normal Internal Rotation 5 Normal Elbow/Forearm Strength Elbow and Forearm Manual Muscle Testing Right Flexion (C6) 4- Good- Extension (C7) 4- Good- Pronation 4- Good- Supination 4- Good- Comments painful Left Flexion (C6) 5 Normal Extension (C7) 5 Normal PT-OP-N Lymphedema Start: 02/06/21 08:16 Freq: Status: Active Protocol: Document 06/21/21 10:36 [facility] (Rec: 06/21/21 14:42 [facility] [id number]) Lymphedema Measurements Upper Extremity Circumference Measurements Right Affected MCP 21.8 cm Dorsum of Hand 20.8 cm Wrist 19.1 cm 5 cm From Wrist Crease 23.9 cm 10 cm From Wrist Crease 29.3 cm 15 cm From Wrist Crease 33.7 cm 20 cm From Wrist Crease 35.8 cm 25 cm From Wrist Crease 40 cm 30 cm From Wrist Crease 47.3 cm 35 cm From Wrist Crease 53.8 cm 40 cm From Wrist Crease 59.4 cm 45 cm From Wrist Crease 58.5 cm Elbow Joint 35.3 cm Axilla 67 cm Left Unaffected MCP 20.7 cm Dorsum of Hand 22.4 cm Wrist 18.6 cm 5 cm From Wrist Crease 23.5 cm 10 cm From Wrist Crease 27.5 cm 15 cm From Wrist Crease 31.4 cm 20 cm From Wrist Crease 34.8 cm 25 cm From Wrist Crease 37.4 cm 30 cm From Wrist Crease 44.4 cm 35 cm From Wrist Crease 52.9 cm 40 cm From Wrist Crease 56.4 cm 45 cm From Wrist Crease 35 cm Elbow Joint 37.4 cm Axilla 62.8 cm PT-OP-Q Treatments Start: 02/06/21 08:16 Freq: Status: Active Protocol: Document 06/21/21 10:36 [facility] (Rec: 06/21/21 14:42 [facility] [id number]) Lymphedema Treatment Manual Lymphatic Drainage Location for right UE lymphedema Comments focus on AAA, AAI, ANURAG pathways for drainage Lymphedema Wrapping Body Location Right UE Materials Size F Tubigrip right hand and forearm, Size G proximal forearm and elbow, Size K upper arm Compression Garment Assessment Compression Garment Assessment Details PT emailed [facility] and left phone message. PT-OP-T Assessment and Plan Start: 02/06/21 08:16 Freq: Status: Active Protocol: Document 06/21/21 10:36 [facility] (Rec: 06/21/21 11:15 [facility] [id number]) Physical Therapy Assessment Impairments Impairments Activity Tolerance,Edema,Pain, ROM Goals Four Impairment lacking regular exercise program Senior Care Goal (LTG) Patient to be independent with HEP and aquatic exercise program for long-term fitness and pain management to include land and aquatic-based exercise 06/21/21: patient severe depression has interfered with her ability to do exercise on own but reports she now feels she wants to try aquatic PT as previously recommended by patient. Also willing to start either treadmill or LE pedaler that she has at home; instructed to start 5 min daily. LTG Duration 08/19/21 Three Impairment edema right UE Product Expert Goal (LTG) Patient to be independent with all aspects of edema management to include skin care, manual lymphatic drainage, lymphedema bandaging and sequential lymphedema exercises, and be fit with appropriate compression garment right UE when lymphedema stable (no increase or decrease greater than 1 cm over the course of 1 week.) 06/21/21: Patient had appointment with [facility] for measurements back in March but hasn't heard back. Has left multiple messages and hasn't heard back from them regarding her compression garment. Edema has increased without treatment or garment. She is unable to bandage herself. LTG Duration 08/19/21 Two Impairment Pain right UE due to complex regional pain synd Impairment pain 6/10 Senior Care Goal (LTG) Decrease pain to no greater than 3/10 to allow patient to resume prior activities including crafting 06/21/21: pain has increased past couple months, extending from her elbow to her writst. LTG Duration 08/19/21 One Impairment Lymphedema life impact scale 35% Impairment Function-limiting lymphedema Product Expert Goal (LTG) Decrease lymphedema life impact scale to no greater than 15% as measure of improved activity tolerance, function, and quality of life. 06/21/21: had made some progress, was measured for compression garment but hasn't received yet and has experienced worsening edema, and thus LTG Duration 08/19/21 Assessment Summary Assessment Patient presents to PT with worsening right UE edema and pain. She was measured for a compression garment for right UE but has not been contacted by the company and has had messages unreturned. She is unable to do self-bandaging and her is unable to help due to cancer diagnosis. Her severe depression makes it difficult for her to follow through with therapeutic exercises. She would benefit from resumption of PT to address her edema and pain. She is now receptive to trial aquatic therapy which I feel would be highly beneficial for her. Additionally I recommended she consider an appointment with Dr. Gastelum for dry needling trial for pain management. Also recommended patient obtain compression shirt for UE compression. Physical Therapy Plan Frequency and Duration Frequency of Treatment 16 visits Duration of Treatment 8 weeks Plan of Care Start Date 06/21/21 Plan of Care End Date 08/19/21 Therapeutic Interventions Therapeutic Interventions Aquatic Therapy,Lymphedema Management,Manual Therapy,Self -Care/Home Management,Soft Tissue Mobilization, Therapeutic Exercises Modalities Cold Pack/Ice Massage Next Visit Focus/Plan Next Note Type Treatment Note Next Visit Plan Recommend dry needling with Dr Monica Gastelum, contact [facility] regarding compression garment, schedule for aquatic therapy. lymphedema management, pain management with manual techniques, compression bandages and garment problem- solving.
--- NOTE | 2021-06-21 14:43 | PT.OPPOC ---
Physical, Occupational & Speech Therapy At [facility] Current Diagnoses Complex regional pain syndrome I of upper limb, bilateral (06/21/21) Lymphedema, not elsewhere classified (06/21/21) Visit Care Team Role Provider Type Gaby Hopson MD Family Provider Non-Staff Primary Care Provider Specialty: Internal Medicine Address: [address], [address], [place], [address] Email: Cristóbal Webster LAC Attending Provider Non-Staff Referring Provider Specialty: Anesthesia/Pain Management Address: [address] [place] [address], [id number] Email: Plan Of Care PT-OP-T Assessment and Plan Start: 02/06/21 08:16 Freq: Status: Active Protocol: Document 06/21/21 10:36 [facility] (Rec: 06/21/21 11:15 [facility] [id number]) Physical Therapy Assessment Impairments Impairments Activity Tolerance,Edema,Pain, ROM Goals Four Impairment lacking regular exercise program Snf Goal (LTG) Patient to be independent with HEP and aquatic exercise program for long-term fitness and pain management to include land and aquatic-based exercise 06/21/21: patient severe depression has interfered with her ability to do exercise on own but reports she now feels she wants to try aquatic PT as previously recommended by patient. Also willing to start either treadmill or LE pedaler that she has at home; instructed to start 5 min daily. LTG Duration 08/19/21 Three Impairment edema right UE Snf Goal (LTG) Patient to be independent with all aspects of edema management to include skin care, manual lymphatic drainage, lymphedema bandaging and sequential lymphedema exercises, and be fit with appropriate compression garment right UE when lymphedema stable (no increase or decrease greater than 1 cm over the course of 1 week.) 06/21/21: Patient had appointment with [employer] for measurements back in March but hasn't heard back. Has left multiple messages and hasn't heard back from them regarding her compression garment. Edema has increased without treatment or garment. She is unable to bandage herself. LTG Duration 08/19/21 Two Impairment Pain right UE due to complex regional pain synd Impairment pain 6/10 [employer] Goal (LTG) Decrease pain to no greater than 3/10 to allow patient to resume prior activities including crafting 06/21/21: pain has increased past couple months, extending from her elbow to her writst. LTG Duration 08/19/21 One Impairment Lymphedema life impact scale 35% Impairment Function-limiting lymphedema Fruit [employer] Goal (LTG) Decrease lymphedema life impact scale to no greater than 15% as measure of improved activity tolerance, function, and quality of life. 06/21/21: had made some progress, was measured for compression garment but hasn't received yet and has experienced worsening edema, and thus LTG Duration 08/19/21 Assessment Summary Assessment Patient presents to PT with worsening right UE edema and pain. She was measured for a compression garment for right UE but has not been contacted by the company and has had messages unreturned. She is unable to do self-bandaging and her is unable to help due to cancer diagnosis. Her severe depression makes it difficult for her to follow through with therapeutic exercises. She would benefit from resumption of PT to address her edema and pain. She is now receptive to trial aquatic therapy which I feel would be highly beneficial for her. Additionally I recommended she consider an appointment with Dr. Gastelum for dry needling trial for pain management. Also recommended patient obtain compression shirt for UE compression. Physical Therapy Plan Frequency and Duration Frequency of Treatment 16 visits Duration of Treatment 8 weeks Plan of Care Start Date 06/21/21 Plan of Care End Date 08/19/21 Therapeutic Interventions Therapeutic Interventions Aquatic Therapy,Lymphedema Management,Manual Therapy,Self -Care/Home Management,Soft Tissue Mobilization, Therapeutic Exercises Modalities Cold Pack/Ice Massage Next Visit Focus/Plan Next Note Type Treatment Note Next Visit Plan Recommend dry needling with Dr Monica Gastelum, contact [employer] regarding compression garment, schedule for aquatic therapy. lymphedema management, pain management with manual techniques, compression bandages and garment problem- solving. Plan of Care Dates Plan of Care Start Date 06/21/21 Plan of Care End Date 08/19/21 Electronically Signed by: Jena Schulz, PT 06/21/21 3525 Please Sign and Return: I have reviewed this Plan of Care and certify that the skilled therapy services above are required to meet the patient?s needs. Physician Signature Date Printed Name and Credentials Clinical Instructor Signature Printed Name and Credentials
--- NOTE | 2021-06-26 17:10 | PT.OTN ---
Current Diagnoses Complex regional pain syndrome I of upper limb, bilateral (06/26/21) Lymphedema, not elsewhere classified (06/26/21) Physical Therapy Treatment Note PT-OP-A Visit Information Start: 02/06/21 08:16 Freq: Status: Active Protocol: Document 06/26/21 14:27 AW (Rec: 06/26/21 15:53 AW [id number]) Out-Patient Physical Therapy Visit Information Visit Information Visit Type Treatment Note Visit Start Time 14:36 Visit Stop Time 15:55 Visit Number 15 Precautions Precautions Complex regional pain syndrome , depression PT-OP-B Current Condition Start: 02/06/21 08:16 Freq: Status: Active Protocol: Document 06/21/21 10:36 [facility] (Rec: 06/21/21 11:15 [facility] [id number]) Current Condition History of Current Condition Onset Date 10+ years Current Complaints worsening chronic pain and edema right UE History of Current Condition Patient has long history of edema right UE s/p injury to right UE with resulting complex regional pain syndrome . Reports recent worsening since last seen in PT. Now prescribed Hydrocodone, taking 5x/day, helps some with the pain, but when about due arm, neck, and back start hurting. Pain and lymphedema both have been worsening since last seen in PT. 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 Discharged from PT early last time due to insurance issues, never obtained compression garment. Not doing well with stress due to 's leukemia, brother earlier this year, as well as cat . Covid and 's illness have resulted in no in person contact with daughters or children. PT order at this time for PT to include aquatic PT and lymphatic massage and treatment. Patient sees psychologist and psychiatrist for severe depression. 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 Prior short term PT. PT-OP-C Subjective Start: 02/06/21 08:16 Freq: Status: Active Protocol: Document 06/26/21 14:27 AW (Rec: 06/26/21 15:53 AW [id number]) OP-PT Subjective Patient Comments Patient Comments Pt purchased a long-sleeved compression garment and is wearing it today. It's a little loose in the lower arm and pt is planning to purchase a smaller size. PT-OP-F Manual Assessment Start: 02/06/21 08:16 Freq: Status: Active Protocol: Document 02/06/21 13:46 [facility] (Rec: 02/07/21 17:26 [facility] [id number]) Manual Assessments Soft Tissue Assessment Soft Tissue Mobility Assessment decreased scar mobility right elbow, no increased warmth or redness or signs of infection right UE. PT-OP-J Posture/Palpation/Skin Start: 02/06/21 08:16 Freq: Status: Active Protocol: Document 02/06/21 13:46 [facility] (Rec: 02/07/21 17:26 [facility] [id number]) Posture Evaluation Position Sitting Head/C-Spine Posture Forward Head T-Spine Posture Increased Kyphosis Shoulder Posture (L) Rounded,(R) Rounded Scapula Posture (L) Protracted,(R) Protracted Arm Posture (L) Internally Rotated,(R) Internally Rotated PT-OP-K Range of Motion Start: 02/06/21 08:16 Freq: Status: Active Protocol: Document 02/06/21 13:46 [facility] (Rec: 02/07/21 17:26 [facility] [id number]) Cervical Spine Range of Motion Cervical Spine Active ROM Limitations Soft Tissue Tightness Comments mod tightness al motions Shoulder Goniometric Range of Motion Shoulder Right Active Shoulder ROM WFL No Testing Position Sitting Flexion 125 Extension 10 Abduction 120 External Rotation at 45 degrees 40 Abduction Internal Rotation Behind Back (text) L5 Left Active Shoulder ROM WFL Yes Shoulder ROM Limitations Shoulder ROM Limitations Soft Tissue Tightness,Pain, Swelling Elbow/Forearm Range of Motion Elbow/Forearm Right Active Elbow/Forearm ROM WFL No Elbow Flexion (degrees) 135 Elbow Extension (degrees) 5 Pronation (degrees) 75 Supination (degrees) 45 Left Active Elbow/Forearm ROM WFL Yes PT-OP-M Strength Start: 02/06/21 08:16 Freq: Status: Active Protocol: Document 02/06/21 13:46 [facility] (Rec: 02/07/21 17:26 [facility] [id number]) Shoulder Strength Shoulder Manual Muscle Testing Right Flexion 4- Good- Extension 4- Good- Abduction (C5) 4- Good- External Rotation 4- Good- Internal Rotation 4- Good- Comments painful Left Flexion 4+ Good+ Extension 4+ Good+ Abduction (C5) 4+ Good+ Adduction 5 Normal External Rotation 5 Normal Internal Rotation 5 Normal Elbow/Forearm Strength Elbow and Forearm Manual Muscle Testing Right Flexion (C6) 4- Good- Extension (C7) 4- Good- Pronation 4- Good- Supination 4- Good- Comments painful Left Flexion (C6) 5 Normal Extension (C7) 5 Normal PT-OP-N Lymphedema Start: 02/06/21 08:16 Freq: Status: Active Protocol: Document 06/26/21 14:27 AW (Rec: 06/26/21 15:53 AW [id number]) Lymphedema Measurements Upper Extremity Circumference Measurements Right Affected MCP 20.7 cm Dorsum of Hand 21.1 cm Wrist 19 cm 5 cm From Wrist Crease 22.7 cm 10 cm From Wrist Crease 27 cm 15 cm From Wrist Crease 31.6 cm 20 cm From Wrist Crease 34 cm 25 cm From Wrist Crease 36.5 cm 30 cm From Wrist Crease 43.8 cm 35 cm From Wrist Crease 52.2 cm 40 cm From Wrist Crease 55.5 cm 45 cm From Wrist Crease 55.7 cm Elbow Joint 33.8 cm Axilla 61 cm PT-OP-Q Treatments Start: 02/06/21 08:16 Freq: Status: Active Protocol: Document 06/26/21 14:27 AW (Rec: 06/26/21 15:53 AW [id number]) Cardio Equipment Recumbent Elliptical (Giant Swarm) Duration (Minutes) 10 Resistance 2 Seat Position 8 seen Other after bandaging Lymphedema Treatment Manual Lymphatic Drainage Location for right UE lymphedema Comments focus on AAA, AAI, ANURAG pathways for drainage Lymphedema Wrapping Body Location Right UE Materials Finger wraps, Tricofix, Artiflex and Comprilan (4 rolls) right UE. PT-OP-T Assessment and Plan Start: 02/06/21 08:16 Freq: Status: Active Protocol: Document 06/26/21 14:27 AW (Rec: 06/26/21 15:53 AW [id number]) Physical Therapy Assessment Goals Four Impairment lacking regular exercise program Nursing Home Goal (LTG) Patient to be independent with HEP and aquatic exercise program for long-term fitness and pain management to include land and aquatic-based exercise 06/21/21: patient severe depression has interfered with her ability to do exercise on own but reports she now feels she wants to try aquatic PT as previously recommended by patient. Also willing to start either treadmill or LE pedaler that she has at home; instructed to start 5 min daily. LTG Duration 08/19/21 Three Impairment edema right UE Auto Rental Clerk Goal (LTG) Patient to be independent with all aspects of edema management to include skin care, manual lymphatic drainage, lymphedema bandaging and sequential lymphedema exercises, and be fit with appropriate compression garment right UE when lymphedema stable (no increase or decrease greater than 1 cm over the course of 1 week.) 06/21/21: Patient had appointment with [employer] for measurements back in March but hasn't heard back. Has left multiple messages and hasn't heard back from them regarding her compression garment. Edema has increased without treatment or garment. She is unable to bandage herself. LTG Duration 08/19/21 Two Impairment Pain right UE due to complex regional pain synd Impairment pain 6/10 Auto Rental Clerk Goal (LTG) Decrease pain to no greater than 3/10 to allow patient to resume prior activities including crafting 06/21/21: pain has increased past couple months, extending from her elbow to her writst. LTG Duration 08/19/21 One Impairment Lymphedema life impact scale 35% Impairment Function-limiting lymphedema Nursing Home Goal (LTG) Decrease lymphedema life impact scale to no greater than 15% as measure of improved activity tolerance, function, and quality of life. 06/21/21: had made some progress, was measured for compression garment but hasn't received yet and has experienced worsening edema, and thus LTG Duration 08/19/21 Assessment Summary Assessment Pt tolerated MLD and compression bandaging well today. Encouraged pt to continue to use RUE as much as possible while bandaged. Will need to follow up on dry needling recommendation and on fit of new compression garment purchased by patient. Physical Therapy Plan Frequency and Duration Frequency of Treatment 16 visits Duration of Treatment 8 weeks Plan of Care Start Date 06/21/21 Plan of Care End Date 08/19/21 Therapeutic Interventions Therapeutic Interventions Aquatic Therapy,Lymphedema Management,Manual Therapy,Self -Care/Home Management,Soft Tissue Mobilization, Therapeutic Exercises Modalities Cold Pack/Ice Massage Next Visit Focus/Plan Next Note Type Treatment Note Next Visit Plan Recommend dry needling with Dr Monica Gastelum, contact [employer] regarding compression garment, schedule for aquatic therapy. lymphedema management, pain management with manual techniques, compression bandages and garment problem- solving.
--- NOTE | 2021-07-02 14:09 | PT-IP ANOTE ---
cancelled due to migraine
--- NOTE | 2021-07-10 16:53 | PT.OTN ---
Current Diagnoses Complex regional pain syndrome I of upper limb, bilateral (07/10/21) Lymphedema, not elsewhere classified (07/10/21) Physical Therapy Treatment Note PT-OP-A Visit Information Start: 02/06/21 08:16 Freq: Status: Active Protocol: Document 07/10/21 16:40 [facility] (Rec: 07/10/21 16:52 [facility] [id number]) Out-Patient Physical Therapy Visit Information Visit Information Visit Type Treatment Note Visit Start Time 13:00 Visit Stop Time 14:20 Total Visit Minutes 75 Visit Number 17 Evaluation Information Evaluation Date 02/06/21 Precautions Precautions Complex regional pain syndrome , depression PT-OP-B Current Condition Start: 02/06/21 08:16 Freq: Status: Active Protocol: Document 06/21/21 10:36 [facility] (Rec: 06/21/21 11:15 [facility] [id number]) Current Condition History of Current Condition Onset Date 10+ years Current Complaints worsening chronic pain and edema right UE History of Current Condition Patient has long history of edema right UE s/p injury to right UE with resulting complex regional pain syndrome . Reports recent worsening since last seen in PT. Now prescribed Hydrocodone, taking 5x/day, helps some with the pain, but when about due arm, neck, and back start hurting. Pain and lymphedema both have been worsening since last seen in PT. 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 Discharged from PT early last time due to insurance issues, never obtained compression garment. Not doing well with stress due to 's leukemia, brother earlier this year, as well as cat . Covid and 's illness have resulted in no in person contact with daughters or children. PT order at this time for PT to include aquatic PT and lymphatic massage and treatment. Patient sees psychologist and psychiatrist for severe depression. 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 Prior short term PT. PT-OP-C Subjective Start: 02/06/21 08:16 Freq: Status: Active Protocol: Document 07/10/21 16:40 [facility] (Rec: 07/10/21 16:52 [facility] [id number]) OP-PT Subjective Patient Comments Patient Comments Forgot to bring compression bandages. Has been wearing compression shirts. Pain in right elbow persists, looking forward to aquatic therapy next month. Hand not swelling this week. PT-OP-F Manual Assessment Start: 02/06/21 08:16 Freq: Status: Active Protocol: Document 02/06/21 13:46 [facility] (Rec: 02/07/21 17:26 [facility] [id number]) Manual Assessments Soft Tissue Assessment Soft Tissue Mobility Assessment decreased scar mobility right elbow, no increased warmth or redness or signs of infection right UE. PT-OP-J Posture/Palpation/Skin Start: 02/06/21 08:16 Freq: Status: Active Protocol: Document 02/06/21 13:46 [facility] (Rec: 02/07/21 17:26 [facility] [id number]) Posture Evaluation Position Sitting Head/C-Spine Posture Forward Head T-Spine Posture Increased Kyphosis Shoulder Posture (L) Rounded,(R) Rounded Scapula Posture (L) Protracted,(R) Protracted Arm Posture (L) Internally Rotated,(R) Internally Rotated PT-OP-K Range of Motion Start: 02/06/21 08:16 Freq: Status: Active Protocol: Document 02/06/21 13:46 [facility] (Rec: 02/07/21 17:26 [facility] [id number]) Cervical Spine Range of Motion Cervical Spine Active ROM Limitations Soft Tissue Tightness Comments mod tightness al motions Shoulder Goniometric Range of Motion Shoulder Right Active Shoulder ROM WFL No Testing Position Sitting Flexion 125 Extension 10 Abduction 120 External Rotation at 45 degrees 40 Abduction Internal Rotation Behind Back (text) L5 Left Active Shoulder ROM WFL Yes Shoulder ROM Limitations Shoulder ROM Limitations Soft Tissue Tightness,Pain, Swelling Elbow/Forearm Range of Motion Elbow/Forearm Right Active Elbow/Forearm ROM WFL No Elbow Flexion (degrees) 135 Elbow Extension (degrees) 5 Pronation (degrees) 75 Supination (degrees) 45 Left Active Elbow/Forearm ROM WFL Yes PT-OP-M Strength Start: 02/06/21 08:16 Freq: Status: Active Protocol: Document 02/06/21 13:46 [facility] (Rec: 02/07/21 17:26 [facility] [id number]) Shoulder Strength Shoulder Manual Muscle Testing Right Flexion 4- Good- Extension 4- Good- Abduction (C5) 4- Good- External Rotation 4- Good- Internal Rotation 4- Good- Comments painful Left Flexion 4+ Good+ Extension 4+ Good+ Abduction (C5) 4+ Good+ Adduction 5 Normal External Rotation 5 Normal Internal Rotation 5 Normal Elbow/Forearm Strength Elbow and Forearm Manual Muscle Testing Right Flexion (C6) 4- Good- Extension (C7) 4- Good- Pronation 4- Good- Supination 4- Good- Comments painful Left Flexion (C6) 5 Normal Extension (C7) 5 Normal PT-OP-N Lymphedema Start: 02/06/21 08:16 Freq: Status: Active Protocol: Document 07/10/21 16:40 [facility] (Rec: 07/10/21 16:52 [facility] [id number]) Lymphedema Measurements Upper Extremity Circumference Measurements Right Affected MCP 21.2 cm Dorsum of Hand 23.3 cm Wrist 18.2 cm 5 cm From Wrist Crease 22.7 cm 10 cm From Wrist Crease 26 cm 15 cm From Wrist Crease 31.5 cm 20 cm From Wrist Crease 34.5 cm 25 cm From Wrist Crease 35.2 cm 30 cm From Wrist Crease 44.8 cm 35 cm From Wrist Crease 52 cm 40 cm From Wrist Crease 58 cm 45 cm From Wrist Crease 60.3 cm Elbow Joint 34.8 cm Axilla 63 cm PT-OP-Q Treatments Start: 02/06/21 08:16 Freq: Status: Active Protocol: Document 07/10/21 16:40 [facility] (Rec: 07/10/21 16:52 [facility] [id number]) Therapeutic Exercises Supine Exercises shoulder flex stretch Equipment Used wand Reps/Minutes 2x30 Sidelying Exercises open book Reps/Minutes 10x Sitting Exercises pec stretch Reps/Minutes 2x30 pulleys Sitting Exercise Name flex, scaption Reps/Minutes 10x ea Manual Therapy Treatment Soft Tissue Mobilization forearm flexors Mobilization Type Instrument Assisted,Myofascial Release,Rolling,Strumming Comments Tristan marrero right wrist extensors Mobilization Type Instrument Assisted,Myofascial Release,Rolling,Strumming Body Position Supine Comments Tristan marrero Self-Care/Home Management Treatment Education Patient Education Home Exercise Program,Pain Management,Posture Lymphedema Treatment Manual Lymphatic Drainage Location for right UE lymphedema Comments focus on AAA, AAI, ANURAG pathways for drainage Lymphedema Wrapping Other not done today; patient didn't bring bandages, c/o bandages sliding down. and has been doing fairly well with compression shirts. Will bring bandages next session PT-OP-T Assessment and Plan Start: 02/06/21 08:16 Freq: Status: Active Protocol: Document 07/10/21 16:40 [facility] (Rec: 07/10/21 16:52 [facility] [id number]) Physical Therapy Assessment Goals Four Impairment lacking regular exercise program Nursing Home Goal (LTG) Patient to be independent with HEP and aquatic exercise program for long-term fitness and pain management to include land and aquatic-based exercise 06/21/21: patient severe depression has interfered with her ability to do exercise on own but reports she now feels she wants to try aquatic PT as previously recommended by patient. Also willing to start either treadmill or LE pedaler that she has at home; instructed to start 5 min daily. LTG Duration 08/19/21 Three Impairment edema right UE Headmaster/Mistress Goal (LTG) Patient to be independent with all aspects of edema management to include skin care, manual lymphatic drainage, lymphedema bandaging and sequential lymphedema exercises, and be fit with appropriate compression garment right UE when lymphedema stable (no increase or decrease greater than 1 cm over the course of 1 week.) 06/21/21: Patient had appointment with [employer] for measurements back in March but hasn't heard back. Has left multiple messages and hasn't heard back from them regarding her compression garment. Edema has increased without treatment or garment. She is unable to bandage herself. LTG Duration 08/19/21 Two Impairment Pain right UE due to complex regional pain synd Impairment pain 6/10 Nursing Home Goal (LTG) Decrease pain to no greater than 3/10 to allow patient to resume prior activities including crafting 06/21/21: pain has increased past couple months, extending from her elbow to her writst. LTG Duration 08/19/21 One Impairment Lymphedema life impact scale 35% Impairment Function-limiting lymphedema Headmaster/Mistress Goal (LTG) Decrease lymphedema life impact scale to no greater than 15% as measure of improved activity tolerance, function, and quality of life. 06/21/21: had made some progress, was measured for compression garment but hasn't received yet and has experienced worsening edema, and thus LTG Duration 08/19/21 Assessment Summary Assessment Hand swelling persists, forearm stable, mild increase in upper arm; patient re- educated on need to perform ther ex especially pec and subaxillary stretch to facilitate lymphatic flow. Physical Therapy Plan Frequency and Duration Frequency of Treatment 16 visits Duration of Treatment 8 weeks Plan of Care Start Date 06/21/21 Plan of Care End Date 08/19/21 Therapeutic Interventions Therapeutic Interventions Aquatic Therapy,Lymphedema Management,Manual Therapy,Self -Care/Home Management,Soft Tissue Mobilization, Therapeutic Exercises Modalities Cold Pack/Ice Massage Next Visit Focus/Plan Next Note Type Treatment Note Next Visit Plan Aquatic therapy next session. Contact [employer] (again) regarding prior ordered compression garment for patient.
--- NOTE | 2021-07-18 14:20 | PT.OTN ---
Current Diagnoses Complex regional pain syndrome I of upper limb, bilateral (07/10/21) Lymphedema, not elsewhere classified (07/10/21) Physical Therapy Treatment Note PT-OP-A Visit Information Start: 02/06/21 08:16 Freq: Status: Active Protocol: Document 07/18/21 14:11 [facility]AK (Rec: 07/18/21 14:13 [facility] [id number]) Out-Patient Physical Therapy Visit Information Visit Information Visit Type Treatment Note Visit Start Time 11:45 Visit Stop Time 12:30 Total Visit Minutes 45 Visit Number 18 Evaluation Information Evaluation Date 02/06/21 Precautions Precautions Complex regional pain syndrome , depression PT-OP-B Current Condition Start: 02/06/21 08:16 Freq: Status: Active Protocol: Document 06/21/21 10:36 SAK (Rec: 06/21/21 11:15 [facility]AK [id number]) Current Condition History of Current Condition Onset Date 10+ years Current Complaints worsening chronic pain and edema right UE History of Current Condition Patient has long history of edema right UE s/p injury to right UE with resulting complex regional pain syndrome . Reports recent worsening since last seen in PT. Now prescribed Hydrocodone, taking 5x/day, helps some with the pain, but when about due arm, neck, and back start hurting. Pain and lymphedema both have been worsening since last seen in PT. 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 Discharged from PT early last time due to insurance issues, never obtained compression garment. Not doing well with stress due to 's leukemia, brother earlier this year, as well as cat . Covid and 's illness have resulted in no in person contact with daughters or children. PT order at this time for PT to include aquatic PT and lymphatic massage and treatment. Patient sees psychologist and psychiatrist for severe depression. 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 Prior short term PT. PT-OP-C Subjective Start: 02/06/21 08:16 Freq: Status: Active Protocol: Document 07/18/21 14:11 SAK (Rec: 07/18/21 14:13 [facility] [id number]) OP-PT Subjective Patient Comments Patient Comments Patient excited to do aquatic PT today, found it helpful in the past. PT-OP-F Manual Assessment Start: 02/06/21 08:16 Freq: Status: Active Protocol: Document 02/06/21 13:46 [facility] (Rec: 02/07/21 17:26 [facility] [id number]) Manual Assessments Soft Tissue Assessment Soft Tissue Mobility Assessment decreased scar mobility right elbow, no increased warmth or redness or signs of infection right UE. PT-OP-J Posture/Palpation/Skin Start: 02/06/21 08:16 Freq: Status: Active Protocol: Document 02/06/21 13:46 [facility] (Rec: 02/07/21 17:26 [facility] [id number]) Posture Evaluation Position Sitting Head/C-Spine Posture Forward Head T-Spine Posture Increased Kyphosis Shoulder Posture (L) Rounded,(R) Rounded Scapula Posture (L) Protracted,(R) Protracted Arm Posture (L) Internally Rotated,(R) Internally Rotated PT-OP-K Range of Motion Start: 02/06/21 08:16 Freq: Status: Active Protocol: Document 02/06/21 13:46 [facility] (Rec: 02/07/21 17:26 [facility] [id number]) Cervical Spine Range of Motion Cervical Spine Active ROM Limitations Soft Tissue Tightness Comments mod tightness al motions Shoulder Goniometric Range of Motion Shoulder Right Active Shoulder ROM WFL No Testing Position Sitting Flexion 125 Extension 10 Abduction 120 External Rotation at 45 degrees 40 Abduction Internal Rotation Behind Back (text) L5 Left Active Shoulder ROM WFL Yes Shoulder ROM Limitations Shoulder ROM Limitations Soft Tissue Tightness,Pain, Swelling Elbow/Forearm Range of Motion Elbow/Forearm Right Active Elbow/Forearm ROM WFL No Elbow Flexion (degrees) 135 Elbow Extension (degrees) 5 Pronation (degrees) 75 Supination (degrees) 45 Left Active Elbow/Forearm ROM WFL Yes PT-OP-M Strength Start: 02/06/21 08:16 Freq: Status: Active Protocol: Document 02/06/21 13:46 [facility] (Rec: 02/07/21 17:26 [facility] [id number]) Shoulder Strength Shoulder Manual Muscle Testing Right Flexion 4- Good- Extension 4- Good- Abduction (C5) 4- Good- External Rotation 4- Good- Internal Rotation 4- Good- Comments painful Left Flexion 4+ Good+ Extension 4+ Good+ Abduction (C5) 4+ Good+ Adduction 5 Normal External Rotation 5 Normal Internal Rotation 5 Normal Elbow/Forearm Strength Elbow and Forearm Manual Muscle Testing Right Flexion (C6) 4- Good- Extension (C7) 4- Good- Pronation 4- Good- Supination 4- Good- Comments painful Left Flexion (C6) 5 Normal Extension (C7) 5 Normal PT-OP-N Lymphedema Start: 02/06/21 08:16 Freq: Status: Active Protocol: Document 07/10/21 16:40 [facility] (Rec: 07/10/21 16:52 [facility] [id number]) Lymphedema Measurements Upper Extremity Circumference Measurements Right Affected MCP 21.2 cm Dorsum of Hand 23.3 cm Wrist 18.2 cm 5 cm From Wrist Crease 22.7 cm 10 cm From Wrist Crease 26 cm 15 cm From Wrist Crease 31.5 cm 20 cm From Wrist Crease 34.5 cm 25 cm From Wrist Crease 35.2 cm 30 cm From Wrist Crease 44.8 cm 35 cm From Wrist Crease 52 cm 40 cm From Wrist Crease 58 cm 45 cm From Wrist Crease 60.3 cm Elbow Joint 34.8 cm Axilla 63 cm PT-OP-Q Treatments Start: 02/06/21 08:16 Freq: Status: Active Protocol: Document 07/10/21 16:40 [facility] (Rec: 07/10/21 16:52 [facility] [id number]) Therapeutic Exercises Supine Exercises shoulder flex stretch Equipment Used wand Reps/Minutes 2x30 Sidelying Exercises open book Reps/Minutes 10x Sitting Exercises pec stretch Reps/Minutes 2x30 pulleys Sitting Exercise Name flex, scaption Reps/Minutes 10x ea Manual Therapy Treatment Soft Tissue Mobilization forearm flexors Mobilization Type Instrument Assisted,Myofascial Release,Rolling,Strumming Comments Graston tool right wrist extensors Mobilization Type Instrument Assisted,Myofascial Release,Rolling,Strumming Body Position Supine Comments Graston tool Self-Care/Home Management Treatment Education Patient Education Home Exercise Program,Pain Management,Posture Lymphedema Treatment Manual Lymphatic Drainage Location for right UE lymphedema Comments focus on AAA, AAI, ANURAG pathways for drainage Lymphedema Wrapping Other not done today; patient didn't bring bandages, c/o bandages sliding down. and has been doing fairly well with compression shirts. Will bring bandages next session PT-OP-S Aquatic Treatment Start: 02/06/21 08:16 Freq: Status: Active Protocol: Document 07/18/21 14:11 [facility] (Rec: 07/18/21 14:20 [facility] [id number]) Aquatics Treatment Pool Entry/Exit Pool Entry/Exit Method Stairs Assistance Independent Water Walking june, soldjune Level of Assistance Verbal Cues Comments reaching for opposite knee for trunk rotation and UE ROM fwd/bck/side Water Level Chest Level Level of Assistance Verbal Cues Comments UE breastroke, reverse breastroke, ab/ad with walking Upper Extremity Exercises push pull with scapular squeeze Body Position Standing Reps/Duration 10x figure 8's Body Position Standing Water Level Neck Level Equipment plastic dot against palm Reps/Duration 10x IR/ER Body Position Standing Water Level Neck Level Reps/Duration 20x circles Body Position Standing Water Level Neck Level Reps/Duration 15 flex/ext Body Position Standing Water Level Neck Level Reps/Duration 20x Comments withforearm pron/sup hor ab/ad Body Position Standing Water Level Neck Level Reps/Duration 20x Upper Extremity Stretches rainbow Body Position Standing Water Level Neck Level Reps/Duration cahe Spinal Exercises burpees Body Position Standing Water Level [place] Reps/Duration 10x ea Comments forward, diagonals [place] Activities [place] Activities Bicycle,Bicycle Backwards, Cross Country,Running,Hip Abduction/Adduction Other Activities with UE movement for propulsion, ROM and strengthening. Equipment none Duration 15 min Swim Strokes Breastroke Other Equipment Used non Laps/Duration 1 PT-OP-T Assessment and Plan Start: 02/06/21 08:16 Freq: Status: Active Protocol: Document 07/18/21 14:11 [facility] (Rec: 07/18/21 14:13 [facility] [id number]) Physical Therapy Assessment Goals Four Impairment lacking regular exercise program Intermediate Goal (LTG) Patient to be independent with HEP and aquatic exercise program for long-term fitness and pain management to include land and aquatic-based exercise 06/21/21: patient severe depression has interfered with her ability to do exercise on own but reports she now feels she wants to try aquatic PT as previously recommended by patient. Also willing to start either treadmill or LE pedaler that she has at home; instructed to start 5 min daily. LTG Duration 08/19/21 Three Impairment edema right UE Mica Miner Goal (LTG) Patient to be independent with all aspects of edema management to include skin care, manual lymphatic drainage, lymphedema bandaging and sequential lymphedema exercises, and be fit with appropriate compression garment right UE when lymphedema stable (no increase or decrease greater than 1 cm over the course of 1 week.) 06/21/21: Patient had appointment with [facility] for measurements back in March but hasn't heard back. Has left multiple messages and hasn't heard back from them regarding her compression garment. Edema has increased without treatment or garment. She is unable to bandage herself. LTG Duration 08/19/21 Two Impairment Pain right UE due to complex regional pain synd Impairment pain 6/10 Intermediate Goal (LTG) Decrease pain to no greater than 3/10 to allow patient to resume prior activities including crafting 06/21/21: pain has increased past couple months, extending from her elbow to her writst. LTG Duration 08/19/21 One Impairment Lymphedema life impact scale 35% Impairment Function-limiting lymphedema Mica Miner Goal (LTG) Decrease lymphedema life impact scale to no greater than 15% as measure of improved activity tolerance, function, and quality of life. 06/21/21: had made some progress, was measured for compression garment but hasn't received yet and has experienced worsening edema, and thus LTG Duration 08/19/21 Physical Therapy Plan Frequency and Duration Frequency of Treatment 16 visits Duration of Treatment 8 weeks Plan of Care Start Date 06/21/21 Plan of Care End Date 08/19/21 Therapeutic Interventions Therapeutic Interventions Aquatic Therapy,Lymphedema Management,Manual Therapy,Self -Care/Home Management,Soft Tissue Mobilization, Therapeutic Exercises Modalities Cold Pack/Ice Massage Next Visit Focus/Plan Next Note Type Treatment Note Next Visit Plan Assess response to today's session and make modifications as indicated to decrease pain , improve lymphedema.
--- NOTE | 2021-08-14 16:27 | PT.OTN ---
Current Diagnoses Complex regional pain syndrome I of upper limb, bilateral (08/14/21) Lymphedema, not elsewhere classified (08/14/21) Physical Therapy Treatment Note PT-OP-A Visit Information Start: 02/06/21 08:16 Freq: Status: Active Protocol: Document 08/14/21 13:45 SAK (Rec: 08/14/21 14:18 SAK [id number]) Out-Patient Physical Therapy Visit Information Visit Information Visit Type Treatment Note Visit Start Time 13:45 Visit Stop Time 15:02 Total Visit Minutes 77 Visit Number 19 Evaluation Information Evaluation Date 02/06/21 Precautions Precautions Complex regional pain syndrome , depression PT-OP-B Current Condition Start: 02/06/21 08:16 Freq: Status: Active Protocol: Document 06/21/21 10:36 SAK (Rec: 06/21/21 11:15 SAK [id number]) Current Condition History of Current Condition Onset Date 10+ years Current Complaints worsening chronic pain and edema right UE History of Current Condition Patient has long history of edema right UE s/p injury to right UE with resulting complex regional pain syndrome . Reports recent worsening since last seen in PT. Now prescribed Hydrocodone, taking 5x/day, helps some with the pain, but when about due arm, neck, and back start hurting. Pain and lymphedema both have been worsening since last seen in PT. 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 Discharged from PT early last time due to insurance issues, never obtained compression garment. Not doing well with stress due to 's leukemia, brother earlier this year, as well as cat . Covid and 's illness have resulted in no in person contact with daughters or children. PT order at this time for PT to include aquatic PT and lymphatic massage and treatment. Patient sees psychologist and psychiatrist for severe depression. 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 Prior short term PT. PT-OP-C Subjective Start: 02/06/21 08:16 Freq: Status: Active Protocol: Document 08/14/21 13:45 SAK (Rec: 08/14/21 14:18 SAK [id number]) OP-PT Subjective Patient Comments Patient Comments Liked the pool, surprised wasn 't sore. Hasn't been seen since 07/18/21. Since not seen has noted increase in swelling right UE znd some recent discoloration of her hand. Weight has been stable. Has not seen pain management since last seen. For medications has been taken off Wellbutrin, increase dose on Methyl..... depression about the same. Saw counselor today. Hasn't heard from [employer] about compression garment yet, PT called again and left message. Patient agreed to look for different vendor for compression garment. Feels only thing that helps her pain so far is MLD and aquatic therapy PT-OP-F Manual Assessment Start: 02/06/21 08:16 Freq: Status: Active Protocol: Document 02/06/21 13:46 [facility] (Rec: 02/07/21 17:26 [facility] [id number]) Manual Assessments Soft Tissue Assessment Soft Tissue Mobility Assessment decreased scar mobility right elbow, no increased warmth or redness or signs of infection right UE. PT-OP-J Posture/Palpation/Skin Start: 02/06/21 08:16 Freq: Status: Active Protocol: Document 02/06/21 13:46 [facility] (Rec: 02/07/21 17:26 [facility] [id number]) Posture Evaluation Position Sitting Head/C-Spine Posture Forward Head T-Spine Posture Increased Kyphosis Shoulder Posture (L) Rounded,(R) Rounded Scapula Posture (L) Protracted,(R) Protracted Arm Posture (L) Internally Rotated,(R) Internally Rotated PT-OP-K Range of Motion Start: 02/06/21 08:16 Freq: Status: Active Protocol: Document 02/06/21 13:46 [facility] (Rec: 02/07/21 17:26 [facility] [id number]) Cervical Spine Range of Motion Cervical Spine Active ROM Limitations Soft Tissue Tightness Comments mod tightness al motions Shoulder Goniometric Range of Motion Shoulder Right Active Shoulder ROM WFL No Testing Position Sitting Flexion 125 Extension 10 Abduction 120 External Rotation at 45 degrees 40 Abduction Internal Rotation Behind Back (text) L5 Left Active Shoulder ROM WFL Yes Shoulder ROM Limitations Shoulder ROM Limitations Soft Tissue Tightness,Pain, Swelling Elbow/Forearm Range of Motion Elbow/Forearm Right Active Elbow/Forearm ROM WFL No Elbow Flexion (degrees) 135 Elbow Extension (degrees) 5 Pronation (degrees) 75 Supination (degrees) 45 Left Active Elbow/Forearm ROM WFL Yes PT-OP-M Strength Start: 02/06/21 08:16 Freq: Status: Active Protocol: Document 02/06/21 13:46 [facility]AK (Rec: 02/07/21 17:26 [facility] [id number]) Shoulder Strength Shoulder Manual Muscle Testing Right Flexion 4- Good- Extension 4- Good- Abduction (C5) 4- Good- External Rotation 4- Good- Internal Rotation 4- Good- Comments painful Left Flexion 4+ Good+ Extension 4+ Good+ Abduction (C5) 4+ Good+ Adduction 5 Normal External Rotation 5 Normal Internal Rotation 5 Normal Elbow/Forearm Strength Elbow and Forearm Manual Muscle Testing Right Flexion (C6) 4- Good- Extension (C7) 4- Good- Pronation 4- Good- Supination 4- Good- Comments painful Left Flexion (C6) 5 Normal Extension (C7) 5 Normal PT-OP-N Lymphedema Start: 02/06/21 08:16 Freq: Status: Active Protocol: Document 07/10/21 16:40 [facility] (Rec: 07/10/21 16:52 [facility] [id number]) Lymphedema Measurements Upper Extremity Circumference Measurements Right Affected MCP 21.2 cm Dorsum of Hand 23.3 cm Wrist 18.2 cm 5 cm From Wrist Crease 22.7 cm 10 cm From Wrist Crease 26 cm 15 cm From Wrist Crease 31.5 cm 20 cm From Wrist Crease 34.5 cm 25 cm From Wrist Crease 35.2 cm 30 cm From Wrist Crease 44.8 cm 35 cm From Wrist Crease 52 cm 40 cm From Wrist Crease 58 cm 45 cm From Wrist Crease 60.3 cm Elbow Joint 34.8 cm Axilla 63 cm PT-OP-Q Treatments Start: 02/06/21 08:16 Freq: Status: Active Protocol: Document 08/14/21 13:45 [facility] (Rec: 08/14/21 16:26 [facility] [id number]) Self-Care/Home Management Treatment Education Patient Education Home Exercise Program,Pain Management,Posture Lymphedema Treatment Manual Lymphatic Drainage Location for right UE lymphedema Comments focus on AAA, AAI, ANURAG pathways for drainage Lymphedema Wrapping Other did not bring bandages, reports she feels it causes increase in pain, prefers MLD Compression Garment Assessment Compression Garment Assessment Details discussed options, patient given list of options for different vendor as [facility] has not returned her messages or my messages. Also given information regarding compression sleeve for plus size people. Patient Education Other benefits of aquatic therapy over land-based PT for addressing her PT goals. Other Other circumferential measurements taken; see measurements in chart PT-OP-S Aquatic Treatment Start: 02/06/21 08:16 Freq: Status: Active Protocol: Document 07/18/21 14:11 [facility] (Rec: 07/18/21 14:20 [facility] [id number]) Aquatics Treatment Pool Entry/Exit Pool Entry/Exit Method Stairs Assistance Independent Water Walking june, june Level of Assistance Verbal Cues Comments reaching for opposite knee for trunk rotation and UE ROM fwd/bck/side Water Level Chest Level Level of Assistance Verbal Cues Comments UE breastroke, reverse breastroke, ab/ad with walking Upper Extremity Exercises push pull with scapular squeeze Body Position Standing Reps/Duration 10x figure 8's Body Position Standing Water Level Neck Level Equipment plastic dot against palm Reps/Duration 10x IR/ER Body Position Standing Water Level Neck Level Reps/Duration 20x circles Body Position Standing Water Level Neck Level Reps/Duration 15 flex/ext Body Position Standing Water Level Neck Level Reps/Duration 20x Comments withforearm pron/sup hor ab/ad Body Position Standing Water Level Neck Level Reps/Duration 20x Upper Extremity Stretches rainbow Body Position Standing Water Level Neck Level Reps/Duration cahe Spinal Exercises burpees Body Position Standing Water Level [place] Reps/Duration 10x ea Comments forward, diagonals [place] Activities [place] Activities Bicycle,Bicycle Backwards, Cross [place],Running,Hip Abduction/Adduction Other Activities with UE movement for propulsion, ROM and strengthening. Equipment none Duration 15 min Swim Strokes Breastroke Other Equipment Used non Laps/Duration 1 PT-OP-T Assessment and Plan Start: 02/06/21 08:16 Freq: Status: Active Protocol: Document 08/14/21 13:45 [facility] (Rec: 08/14/21 14:18 [facility] [id number]) Physical Therapy Assessment Goals Four Impairment lacking regular exercise program [employer] Goal (LTG) Patient to be independent with HEP and aquatic exercise program for long-term fitness and pain management to include land and aquatic-based exercise 06/21/21: patient severe depression has interfered with her ability to do exercise on own but reports she now feels she wants to try aquatic PT as previously recommended by patient. Also willing to start either treadmill or LE pedaler that she has at home; instructed to start 5 min daily. 08/14/21: having difficulty complying due to depression and poor tolerance. Plan emphasis on aquatic therapy moving forward due to ability to perform fully body exercise with good tolerance and noted decreased edema LTG Duration 10/13/21 Three Impairment edema right UE Correction Goal (LTG) Patient to be independent with all aspects of edema management to include skin care, manual lymphatic drainage, lymphedema bandaging and sequential lymphedema exercises, and be fit with appropriate compression garment right UE when lymphedema stable (no increase or decrease greater than 1 cm over the course of 1 week.) 06/21/21: Patient had appointment with [facility] for measurements back in March but hasn't heard back. Has left multiple messages and hasn't heard back from them regarding her compression garment. Edema has increased without treatment or garment. She is unable to bandage herself. 08/14/21:measurements actually mildly decreased today, despite not being bandaged and denying weight reduction. Possibly due to good compliance to the deep breathing exercises which open deep lymphatics, patient has been compliant to this. PT and patient have not heard from [facility] regarding compression garment, patient given information regarding other vendors and will pursue LTG Duration 10/13/21 Two Impairment Pain right UE due to complex regional pain synd Impairment pain 6/10 [employer] Goal (LTG) Decrease pain to no greater than 3/10 to allow patient to resume prior activities including crafting 06/21/21: pain has increased past couple months, extending from her elbow to her writst. 07/14/21:7-8/10, was less after aquatic therapy. Emphasis will be on aquatic therapy moving forward LTG Duration 10/13/21 One Impairment Lymphedema life impact scale 35% Impairment Function-limiting lymphedema [employer] Goal (LTG) Decrease lymphedema life impact scale to no greater than 15% as measure of improved activity tolerance, function, and quality of life. 06/21/21: had made some progress, was measured for compression garment but hasn't received yet and has experienced worsening edema, and thus 07/14/21: goal progress LTG Duration 10/13/21 Progress Towards Goals Progress Towards Goals Slow Progress - Other Progress Comments progress hampered significantly by patient depression as well as lack of follow-through by compression garment vendor Assessment Summary Assessment Patient reporting best results with decrease in pain and edema from both MLD and aquatic therapy (has only had 1 session so far of aquatic therapy due to short staffed). Moving forward have agreed to emphasis on aquatic therapy . Patient has not yet received compression garment from vendor despite having been measured and supposedly ordered. Both PT and patient have left messages and heard nothing back. At this point encouraging patient to seek different vendor and was given list of options. Would benefit from further PT to address goals with emphasis on aquatic therapy. Physical Therapy Plan Frequency and Duration Frequency of Treatment 16 visits Duration of Treatment 8 weeks Plan of Care Start Date 08/14/21 Plan of Care End Date 10/13/21 Therapeutic Interventions Therapeutic Interventions Aquatic Therapy,Lymphedema Management,Manual Therapy,Self -Care/Home Management,Soft Tissue Mobilization, Therapeutic Exercises Modalities Cold Pack/Ice Massage Next Visit Focus/Plan Next Note Type Treatment Note
--- NOTE | 2021-08-14 16:27 | PT.OPPOC ---
Physical, Occupational & Speech Therapy At [facility] Current Diagnoses Complex regional pain syndrome I of upper limb, bilateral (08/14/21) Lymphedema, not elsewhere classified (08/14/21) Visit Care Team Role Provider Type Gaby Hopson MD Family Provider Non-Staff Primary Care Provider Specialty: Internal Medicine Address: [address], [address], [place], [address] Email: Cristóbal Webster LAC Attending Provider Non-Staff Referring Provider Specialty: Anesthesia/Pain Management Address: [address] [place] [address], [id number] Email: Plan Of Care PT-OP-T Assessment and Plan Start: 02/06/21 08:16 Freq: Status: Active Protocol: Document 08/14/21 13:45 SAK (Rec: 08/14/21 14:18 SAK [id number]) Physical Therapy Assessment Goals Four Impairment lacking regular exercise program Custodial Goal (LTG) Patient to be independent with HEP and aquatic exercise program for long-term fitness and pain management to include land and aquatic-based exercise 06/21/21: patient severe depression has interfered with her ability to do exercise on own but reports she now feels she wants to try aquatic PT as previously recommended by patient. Also willing to start either treadmill or LE pedaler that she has at home; instructed to start 5 min daily. 08/14/21: having difficulty complying due to depression and poor tolerance. Plan emphasis on aquatic therapy moving forward due to ability to perform fully body exercise with good tolerance and noted decreased edema LTG Duration 10/13/21 Three Impairment edema right UE Custodial Goal (LTG) Patient to be independent with all aspects of edema management to include skin care, manual lymphatic drainage, lymphedema bandaging and sequential lymphedema exercises, and be fit with appropriate compression garment right UE when lymphedema stable (no increase or decrease greater than 1 cm over the course of 1 week.) 06/21/21: Patient had appointment with [employer] for measurements back in March but hasn't heard back. Has left multiple messages and hasn't heard back from them regarding her compression garment. Edema has increased without treatment or garment. She is unable to bandage herself. 08/14/21:measurements actually mildly decreased today, despite not being bandaged and denying weight reduction. Possibly due to good compliance to the deep breathing exercises which open deep lymphatics, patient has been compliant to this. PT and patient have not heard from [employer] regarding compression garment, patient given information regarding other vendors and will pursue LTG Duration 10/13/21 Two Impairment Pain right UE due to complex regional pain synd Impairment pain 6/10 Custodial Goal (LTG) Decrease pain to no greater than 3/10 to allow patient to resume prior activities including crafting 06/21/21: pain has increased past couple months, extending from her elbow to her writst. 07/14/21:7-8/10, was less after aquatic therapy. Emphasis will be on aquatic therapy moving forward LTG Duration 10/13/21 One Impairment Lymphedema life impact scale 35% Impairment Function-limiting lymphedema Data Collection Technician Goal (LTG) Decrease lymphedema life impact scale to no greater than 15% as measure of improved activity tolerance, function, and quality of life. 06/21/21: had made some progress, was measured for compression garment but hasn't received yet and has experienced worsening edema, and thus 07/14/21: goal progress LTG Duration 10/13/21 Progress Towards Goals Progress Towards Goals Slow Progress - Other Progress Comments progress hampered significantly by patient depression as well as lack of follow-through by compression garment vendor Assessment Summary Assessment Patient reporting best results with decrease in pain and edema from both MLD and aquatic therapy (has only had 1 session so far of aquatic therapy due to short staffed). Moving forward have agreed to emphasis on aquatic therapy . Patient has not yet received compression garment from vendor despite having been measured and supposedly ordered. Both PT and patient have left messages and heard nothing back. At this point encouraging patient to seek different vendor and was given list of options. Would benefit from further PT to address goals with emphasis on aquatic therapy. Physical Therapy Plan Frequency and Duration Frequency of Treatment 16 visits Duration of Treatment 8 weeks Plan of Care Start Date 08/14/21 Plan of Care End Date 10/13/21 Therapeutic Interventions Therapeutic Interventions Aquatic Therapy,Lymphedema Management,Manual Therapy,Self -Care/Home Management,Soft Tissue Mobilization, Therapeutic Exercises Modalities Cold Pack/Ice Massage Next Visit Focus/Plan Next Note Type Treatment Note Plan of Care Dates Plan of Care Start Date 08/14/21 Plan of Care End Date 10/13/21 Electronically Signed by: Jena Schulz, PT 08/14/21 [id number] If you are in agreement with this Plan of Care, please return a signed and dated copy. I have reviewed this Plan of Care and certify that the skilled therapy services above are required to meet the patient?s needs. Physician Signature Date Printed Name and Credentials Clinical Instructor Signature Printed Name and Credentials
--- NOTE | 2021-08-22 16:58 | PT.OTN ---
Current Diagnoses Complex regional pain syndrome I of upper limb, bilateral (08/20/21) Lymphedema, not elsewhere classified (08/20/21) Physical Therapy Treatment Note PT-OP-A Visit Information Start: 02/06/21 08:16 Freq: Status: Active Protocol: Document 08/20/21 12:30 SAK (Rec: 08/22/21 16:57 [facility] [id number]) Out-Patient Physical Therapy Visit Information Visit Information Visit Type Aquatic Treatment Note Visit Start Time 12:30 Visit Stop Time 13:15 Total Visit Minutes 45 Visit Number 20 Evaluation Information Evaluation Date 02/06/21 Precautions Precautions Complex regional pain syndrome , depression PT-OP-B Current Condition Start: 02/06/21 08:16 Freq: Status: Active Protocol: Document 06/21/21 10:36 SAK (Rec: 06/21/21 11:15 SAK [id number]) Current Condition History of Current Condition Onset Date 10+ years Current Complaints worsening chronic pain and edema right UE History of Current Condition Patient has long history of edema right UE s/p injury to right UE with resulting complex regional pain syndrome . Reports recent worsening since last seen in PT. Now prescribed Hydrocodone, taking 5x/day, helps some with the pain, but when about due arm, neck, and back start hurting. Pain and lymphedema both have been worsening since last seen in PT. 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 Discharged from PT early last time due to insurance issues, never obtained compression garment. Not doing well with stress due to 's leukemia, brother earlier this year, as well as cat . Covid and 's illness have resulted in no in person contact with daughters or children. PT order at this time for PT to include aquatic PT and lymphatic massage and treatment. Patient sees psychologist and psychiatrist for severe depression. 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 Prior short term PT. PT-OP-C Subjective Start: 02/06/21 08:16 Freq: Status: Active Protocol: Document 08/20/21 12:30 SAK (Rec: 08/22/21 16:57 [facility] [id number]) OP-PT Subjective Patient Comments Patient Comments Glad to be back in aquatic therapy, hasn't been able to try going to the pool by herself, limited largely by depression. She continues to see counselor. PT-OP-F Manual Assessment Start: 02/06/21 08:16 Freq: Status: Active Protocol: Document 02/06/21 13:46 [facility] (Rec: 02/07/21 17:26 [facility] [id number]) Manual Assessments Soft Tissue Assessment Soft Tissue Mobility Assessment decreased scar mobility right elbow, no increased warmth or redness or signs of infection right UE. PT-OP-J Posture/Palpation/Skin Start: 02/06/21 08:16 Freq: Status: Active Protocol: Document 02/06/21 13:46 [facility] (Rec: 02/07/21 17:26 [facility] [id number]) Posture Evaluation Position Sitting Head/C-Spine Posture Forward Head T-Spine Posture Increased Kyphosis Shoulder Posture (L) Rounded,(R) Rounded Scapula Posture (L) Protracted,(R) Protracted Arm Posture (L) Internally Rotated,(R) Internally Rotated PT-OP-K Range of Motion Start: 02/06/21 08:16 Freq: Status: Active Protocol: Document 02/06/21 13:46 [facility] (Rec: 02/07/21 17:26 [facility] [id number]) Cervical Spine Range of Motion Cervical Spine Active ROM Limitations Soft Tissue Tightness Comments mod tightness al motions Shoulder Goniometric Range of Motion Shoulder Right Active Shoulder ROM WFL No Testing Position Sitting Flexion 125 Extension 10 Abduction 120 External Rotation at 45 degrees 40 Abduction Internal Rotation Behind Back (text) L5 Left Active Shoulder ROM WFL Yes Shoulder ROM Limitations Shoulder ROM Limitations Soft Tissue Tightness,Pain, Swelling Elbow/Forearm Range of Motion Elbow/Forearm Right Active Elbow/Forearm ROM WFL No Elbow Flexion (degrees) 135 Elbow Extension (degrees) 5 Pronation (degrees) 75 Supination (degrees) 45 Left Active Elbow/Forearm ROM WFL Yes PT-OP-M Strength Start: 02/06/21 08:16 Freq: Status: Active Protocol: Document 02/06/21 13:46 [facility] (Rec: 02/07/21 17:26 [facility] [id number]) Shoulder Strength Shoulder Manual Muscle Testing Right Flexion 4- Good- Extension 4- Good- Abduction (C5) 4- Good- External Rotation 4- Good- Internal Rotation 4- Good- Comments painful Left Flexion 4+ Good+ Extension 4+ Good+ Abduction (C5) 4+ Good+ Adduction 5 Normal External Rotation 5 Normal Internal Rotation 5 Normal Elbow/Forearm Strength Elbow and Forearm Manual Muscle Testing Right Flexion (C6) 4- Good- Extension (C7) 4- Good- Pronation 4- Good- Supination 4- Good- Comments painful Left Flexion (C6) 5 Normal Extension (C7) 5 Normal PT-OP-N Lymphedema Start: 02/06/21 08:16 Freq: Status: Active Protocol: Document 07/10/21 16:40 SAK (Rec: 07/10/21 16:52 [facility] [id number]) Lymphedema Measurements Upper Extremity Circumference Measurements Right Affected MCP 21.2 cm Dorsum of Hand 23.3 cm Wrist 18.2 cm 5 cm From Wrist Crease 22.7 cm 10 cm From Wrist Crease 26 cm 15 cm From Wrist Crease 31.5 cm 20 cm From Wrist Crease 34.5 cm 25 cm From Wrist Crease 35.2 cm 30 cm From Wrist Crease 44.8 cm 35 cm From Wrist Crease 52 cm 40 cm From Wrist Crease 58 cm 45 cm From Wrist Crease 60.3 cm Elbow Joint 34.8 cm Axilla 63 cm PT-OP-Q Treatments Start: 02/06/21 08:16 Freq: Status: Active Protocol: Document 08/14/21 13:45 SAK (Rec: 08/14/21 16:26 [facility] [id number]) Self-Care/Home Management Treatment Education Patient Education Home Exercise Program,Pain Management,Posture Lymphedema Treatment Manual Lymphatic Drainage Location for right UE lymphedema Comments focus on AAA, AAI, ANURAG pathways for drainage Lymphedema Wrapping Other did not bring bandages, reports she feels it causes increase in pain, prefers MLD Compression Garment Assessment Compression Garment Assessment Details discussed options, patient given list of options for different vendor as [employer] has not returned her messages or my messages. Also given information regarding compression sleeve for plus size people. Patient Education Other benefits of aquatic therapy over land-based PT for addressing her PT goals. Other Other circumferential measurements taken; see measurements in chart PT-OP-S Aquatic Treatment Start: 02/06/21 08:16 Freq: Status: Active Protocol: Document 08/20/21 12:30 SAK (Rec: 08/22/21 16:57 [facility] [id number]) Aquatics Treatment Pool Entry/Exit Pool Entry/Exit Method Stairs Assistance Independent Water Walking june, soldjune Level of Assistance Verbal Cues Comments reaching for opposite knee for trunk rotation and UE ROM fwd/bck/side Water Level Chest Level Level of Assistance Verbal Cues Comments UE breastroke, reverse breastroke, ab/ad with walking Upper Extremity Exercises push pull with scapular squeeze Body Position Standing Reps/Duration 10x figure 8's Body Position Standing Water Level Neck Level Equipment plastic dot against palm Reps/Duration 10x circles Body Position Standing Water Level Neck Level Reps/Duration 15 flex/ext Body Position Standing Water Level Neck Level Reps/Duration 20x Comments withforearm pron/sup hor ab/ad Body Position Standing Water Level Neck Level Reps/Duration 20x Upper Extremity Stretches rainbow Body Position Standing Water Level Neck Level Reps/Duration cane Spinal Exercises burpees Body Position Standing Water Level [place] Reps/Duration 10x ea Comments forward, diagonals [place] Activities [place] Activities Bicycle,Bicycle Backwards, Cross Country,Running,Hip Abduction/Adduction Other Activities with UE movement for propulsion, ROM and strengthening. Equipment none Duration 15 min Swim Strokes Breastroke Other Equipment Used none Laps/Duration 1 PT-OP-T Assessment and Plan Start: 02/06/21 08:16 Freq: Status: Active Protocol: Document 08/20/21 12:30 [facility] (Rec: 08/22/21 16:57 [facility] [id number]) Physical Therapy Assessment Goals Four Impairment lacking regular exercise program Jail Goal (LTG) Patient to be independent with HEP and aquatic exercise program for long-term fitness and pain management to include land and aquatic-based exercise 06/21/21: patient severe depression has interfered with her ability to do exercise on own but reports she now feels she wants to try aquatic PT as previously recommended by patient. Also willing to start either treadmill or LE pedaler that she has at home; instructed to start 5 min daily. 08/14/21: having difficulty complying due to depression and poor tolerance. Plan emphasis on aquatic therapy moving forward due to ability to perform fully body exercise with good tolerance and noted decreased edema LTG Duration 10/13/21 Three Impairment edema right UE Criminal Court Judge Goal (LTG) Patient to be independent with all aspects of edema management to include skin care, manual lymphatic drainage, lymphedema bandaging and sequential lymphedema exercises, and be fit with appropriate compression garment right UE when lymphedema stable (no increase or decrease greater than 1 cm over the course of 1 week.) 06/21/21: Patient had appointment with [employer] for measurements back in March but hasn't heard back. Has left multiple messages and hasn't heard back from them regarding her compression garment. Edema has increased without treatment or garment. She is unable to bandage herself. 08/14/21:measurements actually mildly decreased today, despite not being bandaged and denying weight reduction. Possibly due to good compliance to the deep breathing exercises which open deep lymphatics, patient has been compliant to this. PT and patient have not heard from [employer] regarding compression garment, patient given information regarding other vendors and will pursue LTG Duration 10/13/21 Two Impairment Pain right UE due to complex regional pain synd Impairment pain 6/[address] Goal (LTG) Decrease pain to no greater than 3/10 to allow patient to resume prior activities including crafting 06/21/21: pain has increased past couple months, extending from her elbow to her writst. 07/14/21:7-8/10, was less after aquatic therapy. Emphasis will be on aquatic therapy moving forward LTG Duration 10/13/21 One Impairment Lymphedema life impact scale 35% Impairment Function-limiting lymphedema Criminal Court Judge Goal (LTG) Decrease lymphedema life impact scale to no greater than 15% as measure of improved activity tolerance, function, and quality of life. 06/21/21: had made some progress, was measured for compression garment but hasn't received yet and has experienced worsening edema, and thus 07/14/21: goal progress LTG Duration 10/13/21 Progress Towards Goals Progress Towards Goals Slow Progress - Other Progress Comments progress hampered significantly by patient depression as well as lack of follow-through by compression garment vendor Assessment Summary Assessment good tolerance for aquatic therapy with patient demonstrating improved mobility and swelling, decreased pain after session. Physical Therapy Plan Frequency and Duration Frequency of Treatment 16 visits Duration of Treatment 8 weeks Plan of Care Start Date 08/14/21 Plan of Care End Date 10/13/21 Therapeutic Interventions Therapeutic Interventions Aquatic Therapy,Lymphedema Management,Manual Therapy,Self -Care/Home Management,Soft Tissue Mobilization, Therapeutic Exercises Modalities Cold Pack/Ice Massage Next Visit Focus/Plan Next Note Type Treatment Note Next Visit Plan Aquatic therapy for ROM, strengthening, lymphedema management, pain management.
--- NOTE | 2021-09-03 14:58 | PT.OTN ---
Current Diagnoses Complex regional pain syndrome I of upper limb, bilateral (09/03/21) Lymphedema, not elsewhere classified (09/03/21) Physical Therapy Treatment Note PT-OP-A Visit Information Start: 02/06/21 08:16 Freq: Status: Active Protocol: Document 09/03/21 14:52 SAK (Rec: 09/03/21 14:58 [facility] [id number]) Out-Patient Physical Therapy Visit Information Visit Information Visit Type Aquatic Treatment Note Visit Start Time 12:30 Visit Stop Time 13:15 Total Visit Minutes 45 Visit Number 21 Evaluation Information Evaluation Date 02/06/21 Precautions Precautions Complex regional pain syndrome , depression PT-OP-B Current Condition Start: 02/06/21 08:16 Freq: Status: Active Protocol: Document 06/21/21 10:36 SAK (Rec: 06/21/21 11:15 [facility] [id number]) Current Condition History of Current Condition Onset Date 10+ years Current Complaints worsening chronic pain and edema right UE History of Current Condition Patient has long history of edema right UE s/p injury to right UE with resulting complex regional pain syndrome . Reports recent worsening since last seen in PT. Now prescribed Hydrocodone, taking 5x/day, helps some with the pain, but when about due arm, neck, and back start hurting. Pain and lymphedema both have been worsening since last seen in PT. 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 Discharged from PT early last time due to insurance issues, never obtained compression garment. Not doing well with stress due to 's leukemia, brother earlier this year, as well as cat . Covid and 's illness have resulted in no in person contact with daughters or children. PT order at this time for PT to include aquatic PT and lymphatic massage and treatment. Patient sees psychologist and psychiatrist for severe depression. 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 Prior short term PT. PT-OP-C Subjective Start: 02/06/21 08:16 Freq: Status: Active Protocol: Document 09/03/21 14:52 SAK (Rec: 09/03/21 14:58 [facility] [id number]) OP-PT Subjective Patient Comments Patient Comments Reports 1 or 2 times in pool on own. Notes decreased edema after pool, though after last time had some increase in elbow soreness. PT-OP-F Manual Assessment Start: 02/06/21 08:16 Freq: Status: Active Protocol: Document 02/06/21 13:46 [facility] (Rec: 02/07/21 17:26 [facility] [id number]) Manual Assessments Soft Tissue Assessment Soft Tissue Mobility Assessment decreased scar mobility right elbow, no increased warmth or redness or signs of infection right UE. PT-OP-J Posture/Palpation/Skin Start: 02/06/21 08:16 Freq: Status: Active Protocol: Document 02/06/21 13:46 [facility] (Rec: 02/07/21 17:26 [facility] [id number]) Posture Evaluation Position Sitting Head/C-Spine Posture Forward Head T-Spine Posture Increased Kyphosis Shoulder Posture (L) Rounded,(R) Rounded Scapula Posture (L) Protracted,(R) Protracted Arm Posture (L) Internally Rotated,(R) Internally Rotated PT-OP-K Range of Motion Start: 02/06/21 08:16 Freq: Status: Active Protocol: Document 02/06/21 13:46 [facility] (Rec: 02/07/21 17:26 [facility] [id number]) Cervical Spine Range of Motion Cervical Spine Active ROM Limitations Soft Tissue Tightness Comments mod tightness al motions Shoulder Goniometric Range of Motion Shoulder Right Active Shoulder ROM WFL No Testing Position Sitting Flexion 125 Extension 10 Abduction 120 External Rotation at 45 degrees 40 Abduction Internal Rotation Behind Back (text) L5 Left Active Shoulder ROM WFL Yes Shoulder ROM Limitations Shoulder ROM Limitations Soft Tissue Tightness,Pain, Swelling Elbow/Forearm Range of Motion Elbow/Forearm Right Active Elbow/Forearm ROM WFL No Elbow Flexion (degrees) 135 Elbow Extension (degrees) 5 Pronation (degrees) 75 Supination (degrees) 45 Left Active Elbow/Forearm ROM WFL Yes PT-OP-M Strength Start: 02/06/21 08:16 Freq: Status: Active Protocol: Document 02/06/21 13:46 [facility] (Rec: 02/07/21 17:26 [facility] [id number]) Shoulder Strength Shoulder Manual Muscle Testing Right Flexion 4- Good- Extension 4- Good- Abduction (C5) 4- Good- External Rotation 4- Good- Internal Rotation 4- Good- Comments painful Left Flexion 4+ Good+ Extension 4+ Good+ Abduction (C5) 4+ Good+ Adduction 5 Normal External Rotation 5 Normal Internal Rotation 5 Normal Elbow/Forearm Strength Elbow and Forearm Manual Muscle Testing Right Flexion (C6) 4- Good- Extension (C7) 4- Good- Pronation 4- Good- Supination 4- Good- Comments painful Left Flexion (C6) 5 Normal Extension (C7) 5 Normal PT-OP-N Lymphedema Start: 02/06/21 08:16 Freq: Status: Active Protocol: Document 07/10/21 16:40 [facility] (Rec: 07/10/21 16:52 [facility] [id number]) Lymphedema Measurements Upper Extremity Circumference Measurements Right Affected MCP 21.2 cm Dorsum of Hand 23.3 cm Wrist 18.2 cm 5 cm From Wrist Crease 22.7 cm 10 cm From Wrist Crease 26 cm 15 cm From Wrist Crease 31.5 cm 20 cm From Wrist Crease 34.5 cm 25 cm From Wrist Crease 35.2 cm 30 cm From Wrist Crease 44.8 cm 35 cm From Wrist Crease 52 cm 40 cm From Wrist Crease 58 cm 45 cm From Wrist Crease 60.3 cm Elbow Joint 34.8 cm Axilla 63 cm PT-OP-Q Treatments Start: 02/06/21 08:16 Freq: Status: Active Protocol: Document 08/14/21 13:45 SAK (Rec: 08/14/21 16:26 [facility] [id number]) Self-Care/Home Management Treatment Education Patient Education Home Exercise Program,Pain Management,Posture Lymphedema Treatment Manual Lymphatic Drainage Location for right UE lymphedema Comments focus on AAA, AAI, ANURAG pathways for drainage Lymphedema Wrapping Other did not bring bandages, reports she feels it causes increase in pain, prefers MLD Compression Garment Assessment Compression Garment Assessment Details discussed options, patient given list of options for different vendor as [employer] has not returned her messages or my messages. Also given information regarding compression sleeve for plus size people. Patient Education Other benefits of aquatic therapy over land-based PT for addressing her PT goals. Other Other circumferential measurements taken; see measurements in chart PT-OP-S Aquatic Treatment Start: 02/06/21 08:16 Freq: Status: Active Protocol: Document 09/03/21 14:52 SAK (Rec: 09/03/21 14:58 [facility] [id number]) Aquatics Treatment Pool Entry/Exit Pool Entry/Exit Method Stairs Assistance Independent Upper Extremity Exercises tricep press Reps/Duration 10x2 Comments large noodle circles Body Position Standing Water Level Neck Level Reps/Duration 15 hor ab/ad Body Position Standing Water Level Neck Level Reps/Duration 20x Upper Extremity Stretches rainbow Body Position Standing Water Level Neck Level Reps/Duration large noodle Spinal Exercises pendulum Reps/Duration 12x Comments medium barbells crunches Details forward, diagonal Reps/Duration 20x ea Comments large noodle under arms [place] Activities [place] Activities Bicycle,Bicycle Backwards, Cross Country,Running,Hip Abduction/Adduction Other Activities with UE movement for propulsion, ROM and strengthening, diagonals activating trunk also forward bicycle Equipment none Duration 20 min PT-OP-T Assessment and Plan Start: 02/06/21 08:16 Freq: Status: Active Protocol: Document 09/03/21 14:52 [facility] (Rec: 09/03/21 14:58 [facility] [id number]) Physical Therapy Assessment Goals Four Impairment lacking regular exercise program Detention Goal (LTG) Patient to be independent with HEP and aquatic exercise program for long-term fitness and pain management to include land and aquatic-based exercise 06/21/21: patient severe depression has interfered with her ability to do exercise on own but reports she now feels she wants to try aquatic PT as previously recommended by patient. Also willing to start either treadmill or LE pedaler that she has at home; instructed to start 5 min daily. 08/14/21: having difficulty complying due to depression and poor tolerance. Plan emphasis on aquatic therapy moving forward due to ability to perform fully body exercise with good tolerance and noted decreased edema LTG Duration 10/13/21 Three Impairment edema right UE Staffing And Scheduling Coordinator Goal (LTG) Patient to be independent with all aspects of edema management to include skin care, manual lymphatic drainage, lymphedema bandaging and sequential lymphedema exercises, and be fit with appropriate compression garment right UE when lymphedema stable (no increase or decrease greater than 1 cm over the course of 1 week.) 06/21/21: Patient had appointment with [employer] for measurements back in March but hasn't heard back. Has left multiple messages and hasn't heard back from them regarding her compression garment. Edema has increased without treatment or garment. She is unable to bandage herself. 08/14/21:measurements actually mildly decreased today, despite not being bandaged and denying weight reduction. Possibly due to good compliance to the deep breathing exercises which open deep lymphatics, patient has been compliant to this. PT and patient have not heard from [employer] regarding compression garment, patient given information regarding other vendors and will pursue LTG Duration 10/13/21 Two Impairment Pain right UE due to complex regional pain synd Impairment pain 6/10 Staffing And Scheduling Coordinator Goal (LTG) Decrease pain to no greater than 3/10 to allow patient to resume prior activities including crafting 06/21/21: pain has increased past couple months, extending from her elbow to her writst. 07/14/21:7-8/10, was less after aquatic therapy. Emphasis will be on aquatic therapy moving forward LTG Duration 10/13/21 One Impairment Lymphedema life impact scale 35% Impairment Function-limiting lymphedema Detention Goal (LTG) Decrease lymphedema life impact scale to no greater than 15% as measure of improved activity tolerance, function, and quality of life. 06/21/21: had made some progress, was measured for compression garment but hasn't received yet and has experienced worsening edema, and thus 07/14/21: goal progress LTG Duration 10/13/21 Progress Towards Goals Progress Towards Goals Progressing Toward Goals Assessment Summary Assessment continues to progress with therapeutic aquatic exercises with increased tolerance, patient noting decrease in UE swelling and pain with aquatic therapy Physical Therapy Plan Frequency and Duration Frequency of Treatment 16 visits Duration of Treatment 8 weeks Plan of Care Start Date 08/14/21 Plan of Care End Date 10/13/21 Therapeutic Interventions Therapeutic Interventions Aquatic Therapy,Lymphedema Management,Manual Therapy,Self -Care/Home Management,Soft Tissue Mobilization, Therapeutic Exercises Modalities Cold Pack/Ice Massage Next Visit Focus/Plan Next Note Type Treatment Note Next Visit Plan Aquatic therapy for ROM, strengthening, lymphedema management, pain management. Circumferential measurements
--- NOTE | 2021-09-17 15:13 | PT.OTN ---
Current Diagnoses Complex regional pain syndrome I of upper limb, bilateral (09/17/21) Lymphedema, not elsewhere classified (09/17/21) Physical Therapy Treatment Note PT-OP-A Visit Information Start: 02/06/21 08:16 Freq: Status: Active Protocol: Document 09/17/21 15:06 MAIDA (Rec: 09/17/21 15:13 LJ [id number]) Out-Patient Physical Therapy Visit Information Visit Information Visit Type Aquatic Treatment Note Visit Start Time 12:30 Visit Stop Time 13:15 Total Visit Minutes 45 Visit Number 22 Evaluation Information Evaluation Date 02/06/21 Precautions Precautions Complex regional pain syndrome , depression PT-OP-B Current Condition Start: 02/06/21 08:16 Freq: Status: Active Protocol: Document 06/21/21 10:36 SAK (Rec: 06/21/21 11:15 SAK [id number]) Current Condition History of Current Condition Onset Date 10+ years Current Complaints worsening chronic pain and edema right UE History of Current Condition Patient has long history of edema right UE s/p injury to right UE with resulting complex regional pain syndrome . Reports recent worsening since last seen in PT. Now prescribed Hydrocodone, taking 5x/day, helps some with the pain, but when about due arm, neck, and back start hurting. Pain and lymphedema both have been worsening since last seen in PT. 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 Discharged from PT early last time due to insurance issues, never obtained compression garment. Not doing well with stress due to 's leukemia, brother earlier this year, as well as cat . Covid and 's illness have resulted in no in person contact with daughters or children. PT order at this time for PT to include aquatic PT and lymphatic massage and treatment. Patient sees psychologist and psychiatrist for severe depression. 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 Prior short term PT. PT-OP-C Subjective Start: 02/06/21 08:16 Freq: Status: Active Protocol: Document 09/17/21 15:06 MAIDA (Rec: 09/17/21 15:13 LJ [id number]) OP-PT Subjective Patient Comments Patient Comments Has not been at the pool this past week but states she will stay after her PT session and continue to do exercise. States her left elbow is sore today for unknown reason. PT-OP-F Manual Assessment Start: 02/06/21 08:16 Freq: Status: Active Protocol: Document 02/06/21 13:46 [facility] (Rec: 02/07/21 17:26 [facility] [id number]) Manual Assessments Soft Tissue Assessment Soft Tissue Mobility Assessment decreased scar mobility right elbow, no increased warmth or redness or signs of infection right UE. PT-OP-J Posture/Palpation/Skin Start: 02/06/21 08:16 Freq: Status: Active Protocol: Document 02/06/21 13:46 [facility] (Rec: 02/07/21 17:26 [facility] [id number]) Posture Evaluation Position Sitting Head/C-Spine Posture Forward Head T-Spine Posture Increased Kyphosis Shoulder Posture (L) Rounded,(R) Rounded Scapula Posture (L) Protracted,(R) Protracted Arm Posture (L) Internally Rotated,(R) Internally Rotated PT-OP-K Range of Motion Start: 02/06/21 08:16 Freq: Status: Active Protocol: Document 02/06/21 13:46 [facility] (Rec: 02/07/21 17:26 [facility] [id number]) Cervical Spine Range of Motion Cervical Spine Active ROM Limitations Soft Tissue Tightness Comments mod tightness al motions Shoulder Goniometric Range of Motion Shoulder Right Active Shoulder ROM WFL No Testing Position Sitting Flexion 125 Extension 10 Abduction 120 External Rotation at 45 degrees 40 Abduction Internal Rotation Behind Back (text) L5 Left Active Shoulder ROM WFL Yes Shoulder ROM Limitations Shoulder ROM Limitations Soft Tissue Tightness,Pain, Swelling Elbow/Forearm Range of Motion Elbow/Forearm Right Active Elbow/Forearm ROM WFL No Elbow Flexion (degrees) 135 Elbow Extension (degrees) 5 Pronation (degrees) 75 Supination (degrees) 45 Left Active Elbow/Forearm ROM WFL Yes PT-OP-M Strength Start: 02/06/21 08:16 Freq: Status: Active Protocol: Document 02/06/21 13:46 [facility] (Rec: 02/07/21 17:26 [facility] [id number]) Shoulder Strength Shoulder Manual Muscle Testing Right Flexion 4- Good- Extension 4- Good- Abduction (C5) 4- Good- External Rotation 4- Good- Internal Rotation 4- Good- Comments painful Left Flexion 4+ Good+ Extension 4+ Good+ Abduction (C5) 4+ Good+ Adduction 5 Normal External Rotation 5 Normal Internal Rotation 5 Normal Elbow/Forearm Strength Elbow and Forearm Manual Muscle Testing Right Flexion (C6) 4- Good- Extension (C7) 4- Good- Pronation 4- Good- Supination 4- Good- Comments painful Left Flexion (C6) 5 Normal Extension (C7) 5 Normal PT-OP-N Lymphedema Start: 02/06/21 08:16 Freq: Status: Active Protocol: Document 07/10/21 16:40 SAK (Rec: 07/10/21 16:52 SAK [id number]) Lymphedema Measurements Upper Extremity Circumference Measurements Right Affected MCP 21.2 cm Dorsum of Hand 23.3 cm Wrist 18.2 cm 5 cm From Wrist Crease 22.7 cm 10 cm From Wrist Crease 26 cm 15 cm From Wrist Crease 31.5 cm 20 cm From Wrist Crease 34.5 cm 25 cm From Wrist Crease 35.2 cm 30 cm From Wrist Crease 44.8 cm 35 cm From Wrist Crease 52 cm 40 cm From Wrist Crease 58 cm 45 cm From Wrist Crease 60.3 cm Elbow Joint 34.8 cm Axilla 63 cm PT-OP-Q Treatments Start: 02/06/21 08:16 Freq: Status: Active Protocol: Document 08/14/21 13:45 SAK (Rec: 08/14/21 16:26 SAK [id number]) Self-Care/Home Management Treatment Education Patient Education Home Exercise Program,Pain Management,Posture Lymphedema Treatment Manual Lymphatic Drainage Location for right UE lymphedema Comments focus on AAA, AAI, ANURAG pathways for drainage Lymphedema Wrapping Other did not bring bandages, reports she feels it causes increase in pain, prefers MLD Compression Garment Assessment Compression Garment Assessment Details discussed options, patient given list of options for different vendor as [employer] has not returned her messages or my messages. Also given information regarding compression sleeve for plus size people. Patient Education Other benefits of aquatic therapy over land-based PT for addressing her PT goals. Other Other circumferential measurements taken; see measurements in chart PT-OP-S Aquatic Treatment Start: 02/06/21 08:16 Freq: Status: Active Protocol: Document 09/17/21 15:06 MA[facility] (Rec: 09/17/21 15:13 LJ [id number]) Aquatics Treatment Pool Entry/Exit Pool Entry/Exit Method Stairs Assistance Independent Water Walking june, soldjune Level of Assistance Verbal Cues Comments reaching for opposite knee for trunk rotation and UE ROM fwd/bck/side Water Level Chest Level Level of Assistance Verbal Cues Comments UE breastroke, reverse breastroke, ab/ad with walking Upper Extremity Exercises tricep press Reps/Duration 10x2 Comments large noodle push pull with scapular squeeze Body Position Standing Reps/Duration 10x figure 8's Body Position Standing Water Level Neck Level Equipment plastic dot against palm Reps/Duration 10x IR/ER Body Position Standing Water Level Neck Level Reps/Duration 20x circles Body Position Standing Water Level [place] Reps/Duration 15 Comments both directions flex/ext Body Position Standing Water Level Neck Level Reps/Duration 20x Comments with forearm pron/sup hor ab/ad Body Position Standing Water Level Neck Level Reps/Duration 20x Upper Extremity Stretches shoulder ABD Details side of pool Body Position side plank Reps/Duration 30 B rainbow Body Position Standing Water Level Neck Level Reps/Duration large noodle Spinal Exercises trunk rotation Details at wall Body Position Sitting Water Level Neck Level Equipment orange smiley faces Reps/Duration 10 pendulum Reps/Duration 12x Comments medium barbells crunches Details forward, diagonal Reps/Duration 20x ea Comments large noodle under arms burpees Body Position Standing Water Level [place] Reps/Duration 10x ea Comments forward, diagonals [place] Activities [place] Activities Bicycle,Cross Country,Hip Abduction/Adduction Other Activities with UE movement for propulsion, ROM and strengthening, diagonals activating trunk also forward bicycle rotational ski Equipment none Duration 20 min Swim Strokes Breastroke Other Equipment Used none Laps/Duration 1 PT-OP-T Assessment and Plan Start: 02/06/21 08:16 Freq: Status: Active Protocol: Document 09/17/21 15:06 [facility] (Rec: 09/17/21 15:13 [facility] [id number]) Physical Therapy Assessment Impairments Impairments Activity Tolerance,Edema,Pain, ROM Goals Four Impairment lacking regular exercise program Usp Goal (LTG) Patient to be independent with HEP and aquatic exercise program for long-term fitness and pain management to include land and aquatic-based exercise 06/21/21: patient severe depression has interfered with her ability to do exercise on own but reports she now feels she wants to try aquatic PT as previously recommended by patient. Also willing to start either treadmill or LE pedaler that she has at home; instructed to start 5 min daily. 08/14/21: having difficulty complying due to depression and poor tolerance. Plan emphasis on aquatic therapy moving forward due to ability to perform fully body exercise with good tolerance and noted decreased edema LTG Duration 10/13/21 Three Impairment edema right UE Usp Goal (LTG) Patient to be independent with all aspects of edema management to include skin care, manual lymphatic drainage, lymphedema bandaging and sequential lymphedema exercises, and be fit with appropriate compression garment right UE when lymphedema stable (no increase or decrease greater than 1 cm over the course of 1 week.) 06/21/21: Patient had appointment with [employer] for measurements back in March but hasn't heard back. Has left multiple messages and hasn't heard back from them regarding her compression garment. Edema has increased without treatment or garment. She is unable to bandage herself. 08/14/21:measurements actually mildly decreased today, despite not being bandaged and denying weight reduction. Possibly due to good compliance to the deep breathing exercises which open deep lymphatics, patient has been compliant to this. PT and patient have not heard from [employer] regarding compression garment, patient given information regarding other vendors and will pursue LTG Duration 10/13/21 Two Impairment Pain right UE due to complex regional pain synd Impairment pain 6/10 Wireless Technician Goal (LTG) Decrease pain to no greater than 3/10 to allow patient to resume prior activities including crafting 06/21/21: pain has increased past couple months, extending from her elbow to her writst. 07/14/21:7-8/10, was less after aquatic therapy. Emphasis will be on aquatic therapy moving forward LTG Duration 10/13/21 One Impairment Lymphedema life impact scale 35% Impairment Function-limiting lymphedema Usp Goal (LTG) Decrease lymphedema life impact scale to no greater than 15% as measure of improved activity tolerance, function, and quality of life. 06/21/21: had made some progress, was measured for compression garment but hasn't received yet and has experienced worsening edema, and thus 07/14/21: goal progress LTG Duration 10/13/21 Progress Towards Goals Progress Towards Goals Progressing Toward Goals Assessment Summary Assessment continues to progress with therapeutic aquatic exercises with increased tolerance, patient noting decrease in UE swelling and pain with aquatic therapy Physical Therapy Plan Frequency and Duration Frequency of Treatment 16 visits Duration of Treatment 8 weeks Plan of Care Start Date 08/14/21 Plan of Care End Date 10/13/21 Therapeutic Interventions Therapeutic Interventions Aquatic Therapy,Lymphedema Management,Manual Therapy,Self -Care/Home Management,Soft Tissue Mobilization, Therapeutic Exercises Modalities Cold Pack/Ice Massage Next Visit Focus/Plan Next Note Type Treatment Note Next Visit Plan Aquatic therapy for ROM, strengthening, lymphedema management, pain management. Circumferential measurements
--- NOTE | 2021-10-08 08:05 | PT-OP ANOTE ---
cancelled due to not feeling well
--- NOTE | 2021-12-12 07:59 | PT.OPDS ---
Current Diagnoses Complex regional pain syndrome I of upper limb, bilateral (09/17/21) Lymphedema, not elsewhere classified (09/17/21) Visit Care Team Role Provider Type Gaby Hopson MD Family Provider Non-Staff Primary Care Provider Specialty: Internal Medicine Address: [address] [place] [address], [address], [place], [address] Email: Cristóbal Webster LAC Attending Provider Non-Staff Referring Provider Specialty: Anesthesia/Pain Management Address: [address] [place] [address], [id number] Email: Visit Number Visit Number 22 Discharge Summary PT-OP-B Current Condition Start: 02/06/21 08:16 Freq: Status: Active Protocol: Document 06/21/21 10:36 SAK (Rec: 06/21/21 11:15 SAK [id number]) Current Condition History of Current Condition Onset Date 10+ years Current Complaints worsening chronic pain and edema right UE History of Current Condition Patient has long history of edema right UE s/p injury to right UE with resulting complex regional pain syndrome . Reports recent worsening since last seen in PT. Now prescribed Hydrocodone, taking 5x/day, helps some with the pain, but when about due arm, neck, and back start hurting. Pain and lymphedema both have been worsening since last seen in PT. 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 Discharged from PT early last time due to insurance issues, never obtained compression garment. Not doing well with stress due to 's leukemia, brother earlier this year, as well as cat . Covid and 's illness have resulted in no in person contact with daughters or children. PT order at this time for PT to include aquatic PT and lymphatic massage and treatment. Patient sees psychologist and psychiatrist for severe depression. 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 Prior short term PT. PT-OP-C Subjective Start: 02/06/21 08:16 Freq: Status: Active Protocol: Document 09/17/21 15:06 MAIDA (Rec: 09/17/21 15:13 LJ [id number]) OP-PT Subjective Patient Comments Patient Comments Has not been at the pool this past week but states she will stay after her PT session and continue to do exercise. States her left elbow is sore today for unknown reason. PT-OP-F Manual Assessment Start: 02/06/21 08:16 Freq: Status: Active Protocol: Document 02/06/21 13:46 [facility] (Rec: 02/07/21 17:26 [facility] [id number]) Manual Assessments Soft Tissue Assessment Soft Tissue Mobility Assessment decreased scar mobility right elbow, no increased warmth or redness or signs of infection right UE. PT-OP-J Posture/Palpation/Skin Start: 02/06/21 08:16 Freq: Status: Active Protocol: Document 02/06/21 13:46 SAK (Rec: 02/07/21 17:26 [facility] [id number]) Posture Evaluation Position Sitting Head/C-Spine Posture Forward Head T-Spine Posture Increased Kyphosis Shoulder Posture (L) Rounded,(R) Rounded Scapula Posture (L) Protracted,(R) Protracted Arm Posture (L) Internally Rotated,(R) Internally Rotated PT-OP-K Range of Motion Start: 02/06/21 08:16 Freq: Status: Active Protocol: Document 02/06/21 13:46 [facility] (Rec: 02/07/21 17:26 [facility] [id number]) Cervical Spine Range of Motion Cervical Spine Active ROM Limitations Soft Tissue Tightness Comments mod tightness al motions Shoulder Goniometric Range of Motion Shoulder Right Active Shoulder ROM WFL No Testing Position Sitting Flexion 125 Extension 10 Abduction 120 External Rotation at 45 degrees 40 Abduction Internal Rotation Behind Back (text) L5 Left Active Shoulder ROM WFL Yes Shoulder ROM Limitations Shoulder ROM Limitations Soft Tissue Tightness,Pain, Swelling Elbow/Forearm Range of Motion Elbow/Forearm Right Active Elbow/Forearm ROM WFL No Elbow Flexion (degrees) 135 Elbow Extension (degrees) 5 Pronation (degrees) 75 Supination (degrees) 45 Left Active Elbow/Forearm ROM WFL Yes PT-OP-M Strength Start: 02/06/21 08:16 Freq: Status: Active Protocol: Document 02/06/21 13:46 [facility]AK (Rec: 02/07/21 17:26 [facility] [id number]) Shoulder Strength Shoulder Manual Muscle Testing Right Flexion 4- Good- Extension 4- Good- Abduction (C5) 4- Good- External Rotation 4- Good- Internal Rotation 4- Good- Comments painful Left Flexion 4+ Good+ Extension 4+ Good+ Abduction (C5) 4+ Good+ Adduction 5 Normal External Rotation 5 Normal Internal Rotation 5 Normal Elbow/Forearm Strength Elbow and Forearm Manual Muscle Testing Right Flexion (C6) 4- Good- Extension (C7) 4- Good- Pronation 4- Good- Supination 4- Good- Comments painful Left Flexion (C6) 5 Normal Extension (C7) 5 Normal PT-OP-N Lymphedema Start: 02/06/21 08:16 Freq: Status: Active Protocol: Document 07/10/21 16:40 [facility] (Rec: 07/10/21 16:52 [facility] [id number]) Lymphedema Measurements Upper Extremity Circumference Measurements Right Affected MCP 21.2 cm Dorsum of Hand 23.3 cm Wrist 18.2 cm 5 cm From Wrist Crease 22.7 cm 10 cm From Wrist Crease 26 cm 15 cm From Wrist Crease 31.5 cm 20 cm From Wrist Crease 34.5 cm 25 cm From Wrist Crease 35.2 cm 30 cm From Wrist Crease 44.8 cm 35 cm From Wrist Crease 52 cm 40 cm From Wrist Crease 58 cm 45 cm From Wrist Crease 60.3 cm Elbow Joint 34.8 cm Axilla 63 cm PT-OP-T Assessment and Plan Start: 02/06/21 08:16 Freq: Status: Active Protocol: Document 12/12/21 07:58 [facility] (Rec: 12/12/21 07:59 [facility] [id number]) Physical Therapy Plan Discharge Physical Therapy Discharge Reasons No Longer Attending PT
== END 2021-12-13 14:16 ==
LOC: PHYS 12:30
PROVIDERS: Family Provider Internal Medicine; PCP Internal Medicine; Referring Provider Acupuncturist; Visit Provider Acupuncturist
DX: G90.513 Complex regional pain syndrome I of upper limb, bilateral (principal); I89.0 Lymphedema, not elsewhere classified
CPT/HCPCS: 97035; 97110; 97113; 97140; 97163; 97535

== ENCOUNTER → 2024-09-29 12:07 | Outpatient (CLI) | payer OTHER, SELFPAY ==
[2024-09-29 13:10] LABS: Alanine Aminotransferase 29 IU/L (<35); Albumin 4.6 g/dL (3.5-5.0); Albumin Globulin Ratio 1.6 (1.0-2.8); Alkaline Phosphatase 95 U/L (38-126); Aspartate Aminotransferase 36 IU/L (14-36); BUN Creatinine Ratio 18.2 (6-22); Bilirubin Total 1.2 mg/dL (0.2-1.3); Blood Urea Nitrogen 14 mg/dL (7-17); Calcium 9.3 mg/dL (8.4-10.2); Carbon Dioxide 30 mmol/L (22-32); Chloride 100 mmol/L (98-107); Estimated Glomerular Filt Rate > 60 mL/min (>60); Globulin 2.9 g/dL (1.7-4.1); Glucose 94 mg/dL (70-99); Potassium 4.1 mmol/L (3.4-5.1); Sodium 139 mmol/L (137-145); Total Protein 7.5 g/dL (6.3-8.2)
[2024-09-29 13:13] LABS: HEMOLYSIS 63 (0-50)
[2024-09-29 14:39] LABS: TSH w/ Reflex to FT4 1.04 uIU/mL (0.47-4.68)
== END ==
PROVIDERS: Family Provider Internal Medicine; Referring Provider Psychiatry & Neurology Psychiatry; Visit Provider Psychiatry & Neurology Psychiatry
DX: F33.2 Major depressive disorder, recurrent severe without psychotic features (principal); F90.2 Attention-deficit hyperactivity disorder, combined type; F41.9 Anxiety disorder, unspecified; F34.1 Dysthymic disorder; Z79.899 Other long term (current) drug therapy
CPT/HCPCS: 36415; 80053; 84443; 99214